=== PATIENT | male | born 1935 | race Caucasian/White ===

== ENCOUNTER 2017-07-31 10:28 | Observation (INO) | payer OTHER ==
--- NOTE | 2017-07-31 10:40 | PDOC ---
Attending Attestation - HPI HPI: 07/31/17 12:32 The patient is a 82 year old male with a significant PMH of CAD with atrial pacemaker, [place], cardiac stents, CABG, pacemaker, HTN, hyperlipidemia, LV diastolic dysfunction, , pulmonary HTN, hypothyroidism, BPH and osteosarcoma who presents to the emergency department with palpitations that began approximately 9AM this morning after coming back from the gym. The patient denies chest pain, shortness of breath, headache and dizziness. Denies fever, chills, nausea, vomit, diarrhea and constipation. Allergies: NKA Past surgical history: Cardiac stents Social history: No reported alcohol, drug, or cigarette use. PCP: Dr. Haskins - Physicial Exam PE: 07/31/17 12:44 Vitals: Triage Vital signs reviewed General Appearance: no acute distress, well nourished well developed, Head: Atraumatic, normocephalic Eyes: (+) Left droopy eyelid. Extraocular movement intact Neck: Supple;No Nuchal rigidity Chest Wall: Nontender Cardiac: Regular rate and rhythm, no murmurs, no rubs, no gallops, Lungs: Clear to auscultation bilateral, good air movement bilaterally, Abdomen: Soft, nondistended, normal bowel sounds, nontender to palpation Rectal: Exam deferred Extremities: Full range of motion to all extremities, no cyanosis, clubbing, or edema Skin: Warm and dry, no rashes or lesions, no petechiae Neuro: (+) Slurred speech. Cranial Nerves 2-12 grossly intact. Psych: normal mood, normal affect <Estee Avelar - Last Filed: 07/31/17 13:32> - Resident Resident Name: Edison Alva - ED Attending Attestation I have performed the following: I have examined & evaluated the patient, The case was reviewed & discussed with the resident, I agree w/resident's findings & plan, Exceptions are as noted - Medical Decision Making 07/31/17 18:44 Patient with new onset A. fib at episode of hoarse voice and brief altered mental status and NIHSS stroke scale 1. Code Long initially activated below suspicion for TIA seen by neurology not TPA candidate low suspicion for TIA most likely toxic metabolic as inciting event. Given palpitations and new-onset A. fib patient admitted to hospital cardiology consult it troponin sent no ischemic changes on EKG first troponin negative <Madie,Deangelo - Last Filed: 07/31/17 18:46> NIH Stroke Scale - Last Known Well Date/Time & Onset Date Last Known Well: 07/31/17 Time Last Known Well: 08:30 - Initial Evaluation Level of consciousness: Alert Ask patient the month and their age: Answers both correctly Ask patient to open & close eyes; make fist and let go: Obeys both correctly Best gaze (horizontal eye movement): Normal Visual field testing: No visual field loss Facial paresis (Show teeth/raise eyebrows/close eyes tight): Minor paralysis ( flattened nasolabial fold, asymmetry on smiling) Motor Function: Left Arm: Normal (1) Motor Function: Right Arm: Normal (extends arm 90 (or 45) degrees for 10 seconds without drift Motor Function: Left Leg: Normal (extends leg 30 degrees for 5 seconds without drift) Motor Function: Right Leg: Normal (extends leg 30 degrees for 5 seconds without drift) Limb Ataxia: No ataxia Sensory(Use pinprick test arms,legs,trunk,face/side to side): Normal Best language (Describe picture, name items, read sentences): No Aphasia Dysarthria (read several words): Normal articulation Extinction and Inattention: No abnormality - Total Score NIH Stroke Scale Score: 1 <Deangelo Ramachandran - Last Filed: 07/31/17 18:46>
[2017-07-31 10:59] VITALS: BMI 23.1
--- NOTE | 2017-07-31 11:20 | PDOC ---
History of Present Illness - General Chief Complaint: Palpitations Stated Complaint: RAPID HEARTBEAT Time Seen by Provider: 07/31/17 10:40 History Source: Patient, Spouse Exam Limitations: No Limitations - History of Present Illness Initial Comments: 07/31/17 11:18 82yo with pmh CAD with atrial pacemaker, [place], cardiac stents, CABG, pacemaker, HTN, hyperlipidemia, LV diastolic dysfunction, , pulmonary HTN, hypothyroidism , BPH and osteosarcoma, who came to the ER today complaining of palpitation 3h ago after coming back from the gym today. states that he was acting weird, didn't off his coat and was just staring at her without responding, he thinks he fell asleep She now complains that his voice is raspier and that his eyes aren't completely open. 07/31/17 11:43 Past History - Past Medical History Allergies/Adverse Reactions: Allergies Allergy/AdvReac Type Severity Reaction Status Date / Time Penicillins Allergy Verified 10/31/15 10:07 Home Medications: Ambulatory Orders Aspirin [ASA -] 81 mg PO DAILY 10/31/15 Candesartan Cilexetil [Atacand -] 4 mg PO DAILY 10/31/15 Clopidogrel Bisulfate [Clopidogrel] 75 mg PO DAILY 10/31/15 Folic Acid 1 mg PO DAILY 10/31/15 Metoprolol Succinate [Toprol XL -] 25 mg PO DAILY 10/31/15 Omeprazole 20 mg PO DAILY 10/31/15 Simvastatin 40 mg PO HS 10/31/15 Tamsulosin HCl 0.4 mg PO HS 10/31/15 Thyroid,Pork [[place] Thyroid] 90 mg PO DAILY 10/31/15 Travoprost [Travatan Z] 1 drop IO DAILY 10/31/15 Cancer: Yes (sarcoma) Cardiac Disorders: Yes (PACEMAKER/sudden cardiac arrest/7 stents) COPD: No Diabetes: Yes - Surgical History Cardiac Surgery: Yes (quadruple bypass 1999) - Immunization History Immunization Up to Date: Yes - Suicide/Smoking/Psychosocial Hx Smoking Status: No Smoking History: Never smoked Have you smoked in the past 12 months: Yes Number of Cigarettes Smoked Daily: 0 Information on smoking cessation initiated: No Hx Alcohol Use: No Drug/Substance Use Hx: No Substance Use Type: None Hx Substance Use Treatment: No Review of Systems - Review of Systems Able to Perform ROS?: Yes Is the patient limited Romanian proficient: No Constitutional: No: Symptoms Reported HEENTM: No: Symptoms Reported Respiratory: No: Symptoms reported Cardiac (ROS): Yes: Syncope : No: Symptoms Reported Musculoskeletal: No: Symptoms Reported Integumentary: No: Symptoms Reported Neurological: Yes: Unsteady Gait. No: Headache, Seizure Endocrine: No: Symptoms Reported *Physical Exam - Vital Signs Last Vital Signs Temp Pulse Resp BP Pulse Ox 97.6 F 92 H 20 97/53 96 07/31/17 17:00 07/31/17 17:00 07/31/17 17:00 07/31/17 17:00 07/31/17 15:38 - Physical Exam General Appearance: Yes: Nourished, Appropriately Dressed. No: Apparent Distress HEENT: positive: EOMI, ALAN, Other (mild left ptosis). negative: Normal Voice ( raspy) Neck: positive: Trachea midline. negative: Tender Respiratory/Chest: positive: Lungs Clear, Normal Breath Sounds. negative: Chest Tender Cardiovascular: positive: Regular Rhythm, Regular Rate, S1, S2 Gastrointestinal/Abdominal: positive: Normal Bowel Sounds, Soft ED Treatment Course - LABORATORY CBC & Chemistry Diagram: 07/31/17 11:14 07/31/17 10:59 - ADDITIONAL ORDERS Additional order review: Laboratory Results 07/31/17 07/31/17 07/31/17 11:14 10:59 10:59 PT with INR INR PTT (Actin FS) Sodium 139 Potassium 5.2 H D Chloride 110 H Carbon Dioxide 19 L D Anion Gap 10 BUN 33 H D Creatinine 1.4 H D Creat Clearance w eGFR 48.40 Random Glucose 120 H Calcium 8.8 Total Bilirubin 0.5 AST 29 D ALT 14 D Alkaline Phosphatase 67 Troponin I < 0.02 B-Natriuretic Peptide 496.96 H Total Protein 7.4 Albumin 3.6 Blood Type O POSITIVE Antibody Screen Negative 07/31/17 10:59 PT with INR 12.40 H INR 1.10 PTT (Actin FS) 28.4 Sodium Potassium Chloride Carbon Dioxide Anion Gap BUN Creatinine Creat Clearance w eGFR Random Glucose Calcium Total Bilirubin AST ALT Alkaline Phosphatase Troponin I B-Natriuretic Peptide Total Protein Albumin Blood Type Antibody Screen 07/31/17 11:14 RBC 4.35 MCV 92.6 MCHC 32.5 RDW 14.3 MPV 9.4 D Neutrophils % 60.6 Lymphocytes % 27.3 Monocytes % 8.1 Eosinophils % 3.6 Basophils % 0.4 - RADIOLOGY Radiology Studies Ordered: Category Date Time Status HEAD CT WITHOUT CONTRAST [CT] Stat CT Scan 07/31/17 11:20 Completed Medical Decision Making - Medical Decision Making 07/31/17 12:03 82M -year-old man with a history of CAD with atrial pacemaker on clopidogrel, [place] , cardiac stents, CABG, pacemaker, HTN, hyperlipidemia, LV diastolic dysfunction , , pulmonary HTN, hypothyroidism, BPH and osteosarcoma, who came to the ER today complaining of palpitation for the past 3 hours and ams as per . EKG: Atrial-Paced rhythm with prolonged AV conduction in a pattern of bigeminy. Low voltage QRS Incomplete right bundle branch block. Cannot rule out inferior/anterior infarct. Code Maradi[place] activated, CT head pending 07/31/17 13:[address] Cristina lei for [facility] to admit patient to telemetry will microblog hospitalist 07/31/17 13:57 [facility] accepted the patient to tele obs for for Dr. Paredes *DC/Admit/Observation/Transfer Diagnosis at time of Disposition: Bigeminal rhythm, Palpitations - Discharge Dispostion Admit: Yes - Referrals - Patient Instructions - Post Discharge Activity
[2017-07-31 11:37] LABS: BASOPHIL 0.4 % (0-2.0); EOSINOPHIL 3.6 % (0-4.5); MCH 30.1 pg (25.7-33.7); MCHC 32.5 g/dl (32.0-35.9); MEAN CELL VOLUME 92.6 fl (80-96); MEAN PLT VOLUME 9.4 fl (7.5-11.1); NEUTROPHILS 60.6 % (42.8-82.8); PLATELET COUNT 247 K/MM3 (134-434); RDW 14.3 % (11.9-15.9); WHITE BLOOD COUNT 8.5 K/mm3 (4.0-10.0)
[2017-07-31 12:04] LABS: INR 1.1 (0.82-1.09); PROTHROMBIN TIME (PATIENT) 12.4 SEC (9.98-11.88)
[2017-07-31 12:07] LABS: ACTIVATED PTT 28.4 SECONDS (26.9-34.4)
--- NOTE | 2017-07-31 12:19 | CON.NEURO ---
Consult Consult Specialty:: Neurology Referred by:: Dr. Ramachandran Reason for Consultation:: Possible Stroke - History of Present Illness Chief Complaint: As per , he doesn't seem right History of Present Illness: 82yo with pmh CAD with atrial pacemaker, [place], cardiac stents, CABG, pacemaker, HTN, hyperlipidemia, LV diastolic dysfunction, , pulmonary HTN, hypothyroidism , BPH and osteosarcoma, who came to the ER today complaining of palpitation 3h ago after coming back from the gym today. states that he was acting weird, didn't off his coat and was just staring at her without responding. He felt extremely tired, was aware that his voice was sounding a bit hoarse and "not strong", but felt that it was coming back stronger by the time I saw him. His agrees. His also felt that his left eye didn't open as much as the right. 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 - Past Surgical History Past Surgical History: Yes: CABG, Permanent Pacemaker - Alcohol/Substance Use Hx Alcohol Use: No History of Substance Use: reports: None - Smoking History Smoking history: Never smoked Have you smoked in the past 12 months: Yes Aproximately how many cigarettes per day: 0 - Social History Usual Living Arrangement: With Spouse ADL: Independent History of Recent Travel: No Home Medications - Allergies Allergies/Adverse Reactions: Allergies Allergy/AdvReac Type Severity Reaction Status Date / Time Penicillins Allergy Verified 10/31/15 10:07 - Home Medications Home Medications: Ambulatory Orders Aspirin [ASA -] 81 mg PO DAILY 10/31/15 Candesartan Cilexetil [Atacand -] 4 mg PO DAILY 10/31/15 Clopidogrel Bisulfate [Clopidogrel] 75 mg PO DAILY 10/31/15 Folic Acid 1 mg PO DAILY 10/31/15 Metoprolol Succinate [Toprol XL -] 25 mg PO DAILY 10/31/15 Omeprazole 20 mg PO DAILY 10/31/15 Simvastatin 40 mg PO HS 10/31/15 Tamsulosin HCl 0.4 mg PO HS 10/31/15 Thyroid,Pork [[place] Thyroid] 90 mg PO DAILY 10/31/15 Travoprost [Travatan Z] 1 drop IO DAILY 10/31/15 Review of Systems - Review of Systems Constitutional: reports: Lethargy (this morning, now improving) Physical Exam-Neuro Vital Signs: Vital Signs Temperature 98.0 F 07/31/17 10:55 Pulse Rate 76 07/31/17 12:08 Respiratory Rate 18 07/31/17 12:08 Blood Pressure 112/86 07/31/17 12:08 O2 Sat by Pulse Oximetry (%) 96 07/31/17 12:08 Constitutional: Yes: Well Nourished, No Distress, Calm Labs: CBC, BMP 07/31/17 11:14 INR, PTT INR 1.10 (0.82-1.09) 07/31/17 10:59 - Neuro Exam Level Of Consciousness: Yes: Alert, Oriented to Person, Oriented to Place, Oriented to Time Eyes: Yes: Other (poor vision from right eye. Pupil unresponsive to light, but responsive on left. He has a right esophoria, no diplopia) Speech: Other (his speech sounds fine to me, but he and his says that its not quite his normal speech, a little hoarse and weak but improved over an hour ago) Cranial Nerves II-XII Intact: Yes DTR's: 0 Left Achilles, 0 Right Achilles, 1+ Left Bicep, 1+ Right Bicep, 1+ Left Tricep, 1+ Right Tricep, 1+ Left Brachioradialis, 1+ Right Brachioradialis Babinski: Absent Response to light touch: Normal (no extinction to double simultaneous stimulation) Coordination: Normal: Finger to Nose, Heel to Brooks Motor Strength: 5/5: Left Arm, Right Arm, Left Leg, Right Leg Gait: Deferred NIH Stroke Scale - Last Known Well Date/Time & Onset Date Last Known Well: 07/31/17 Time Last Known Well: 08:00 - Initial Evaluation Level of consciousness: Alert Ask patient the month and their age: Answers both correctly Ask patient to open & close eyes; make fist and let go: Obeys both correctly Best gaze (horizontal eye movement): Normal Visual field testing: No visual field loss Facial paresis (Show teeth/raise eyebrows/close eyes tight): Normal symmetrical movement Motor Function: Left Arm: Normal Motor Function: Right Arm: Normal (extends arm 90 (or 45) degrees for 10 seconds without drift Motor Function: Left Leg: Normal (extends leg 30 degrees for 5 seconds without drift) Motor Function: Right Leg: Normal (extends leg 30 degrees for 5 seconds without drift) Limb Ataxia: No ataxia Sensory(Use pinprick test arms,legs,trunk,face/side to side): Normal Best language (Describe picture, name items, read sentences): No Aphasia Dysarthria (read several words): Normal articulation Extinction and Inattention: No abnormality - Total Score NIH Stroke Scale Score: 0 Imaging - Results Cat Scan: Report Reviewed, Image Reviewed (atrophy, no acute stroke, to my eyes some white matter ischemic changes) Problem List - Problems (1) Encephalopathy acute Code(s): G93.40 - ENCEPHALOPATHY, UNSPECIFIED (2) AV block, complete Code(s): I44.2 - ATRIOVENTRICULAR BLOCK, COMPLETE (3) Aortic stenosis Code(s): I35.0 - NONRHEUMATIC AORTIC (VALVE) STENOSIS Qualifiers: Cardiac valve disease etiology: nonrheumatic Qualified Code(s): I35.0 - Nonrheumatic aortic (valve) stenosis (4) BPH (benign prostatic hypertrophy) Code(s): N40.0 - BENIGN PROSTATIC HYPERPLASIA WITHOUT LOWER URINRY TRACT SYMP Qualifiers: Lower urinary tract symptom presence: symptoms absent Qualified Code(s): N40.0 - Benign prostatic hyperplasia without lower urinary tract symptoms (5) CAD (coronary artery disease) Code(s): I25.10 - ATHSCL HEART DISEASE OF [place] CORONARY ARTERY W/O ANG PCTRS Qualifiers: Coronary Disease-Associated Artery/Lesion type: [place] artery [place] vs. transplanted heart: [place] heart Associated angina: without angina Qualified Code(s): I25.10 - Atherosclerotic heart disease of [place] coronary artery without angina pectoris (6) Diastolic dysfunction without heart failure Code(s): I51.9 - HEART DISEASE, UNSPECIFIED (7) History of cardiac pacemaker Code(s): Z95.0 - PRESENCE OF CARDIAC PACEMAKER Assessment/Plan I don't see this as a clear TIA, though its possible. The story strikes me more of global dysfunction, possibly cardiac in origin. The history of palpitations, and severe fatigue, and the lack of focal complaints I think points more to this. Based on his low score on NIHSS, lack of suspicion of ACRYLIC FABRICATOR etiology, and rapid improvement, I wouldn't consider TPA for neurologic reasons. Recommend exploring cardiac status. Please reconsult me if further questions arise. Thanks.
[2017-07-31 12:40] LABS: ALBUMIN 3.6 g/dl (3.4-5.0); ANION GAP 10 (8-16); BILIRUBIN,TOTAL 0.5 mg/dL (0.2-1.0); CALCIUM 8.8 mg/dL (8.5-10.1); CO2 19 mmol/L (21-32); CREATININE 1.4 mg/dL (0.7-1.3); GLUCOSE,RANDOM 120 mg/dL (74-106); SGPT/ALT 14 U/L (12-78); TOT PROT 7.4 g/dl (6.4-8.2)
[2017-07-31 12:42] LABS: ALK PHOS 67 U/L (45-117); TROPONIN I < 0.02 ng/ml (0.00-0.05)
[2017-07-31 12:47] LABS: SGOT/AST 29 U/L (15-37)
--- NOTE | 2017-07-31 17:58 | HP ---
CHIEF COMPLAINT: PCP: Jozef ([facility]) Cards: [facility] HISTORY OF PRESENT ILLNESS: This is a 82yo man with pmh CAD, [place], CABGx2, HTN, HLD, "thigh" sarcoma, glaucoma who presents with an episode of slurred speech and "acting strange." The patient states he came home from the gym walked into the house and sat down on the couch. Then he remembers his talking to him but he was not able to answer clearly. The states she was concerned that the patient was still fully dressed in his sweatshirt, coat and winter hat in a warm house. She noticed that he had left eye ptosis and had slurred speech. She states his voice was "hoarse" at that time. The patient has full recollection of events. He denies dizziness, chest pain, shortness of breath, loss of consciousness, fevers, chills, nausea, vomiting, abdominal pain. ER course was notable for: (1) Negative CTH (2) troponin (-) Recent Travel: denies PAST MEDICAL HISTORY: see HPI PAST SURGICAL HISTORY: see HPI Social History: Smoking: denies Alcohol: denies Drugs: denies Family History: Allergies Penicillins Allergy (Verified 10/31/15 10:07) HOME MEDICATIONS: Home Medications Medication Instructions Recorded Aspirin [ASA -] 81 mg PO DAILY 10/31/15 Candesartan Cilexetil [Atacand -] 4 mg PO DAILY 10/31/15 Clopidogrel Bisulfate [Clopidogrel] 75 mg PO DAILY 10/31/15 Folic Acid 1 mg PO DAILY 10/31/15 Metoprolol Succinate [Toprol XL -] 25 mg PO DAILY 10/31/15 Omeprazole 20 mg PO DAILY 10/31/15 Simvastatin 40 mg PO HS 10/31/15 Tamsulosin HCl 0.4 mg PO HS 10/31/15 Thyroid,Pork [[place] Thyroid] 90 mg PO DAILY 10/31/15 Travoprost [Travatan Z] 1 drop IO DAILY 10/31/15 REVIEW OF SYSTEMS CONSTITUTIONAL: Absent: fever, chills, diaphoresis, generalized weakness, malaise, loss of appetite, weight change HEENT: Absent: rhinorrhea, nasal congestion, throat pain, throat swelling, difficulty swallowing, mouth swelling, ear pain, eye pain, visual changes CARDIOVASCULAR: Present- palpitations, irregular heart rate, lightheadedness Absent: chest pain, syncope, peripheral edema RESPIRATORY: Absent: cough, shortness of breath, dyspnea with exertion, orthopnea, wheezing, stridor, hemoptysis GASTROINTESTINAL: Absent: abdominal pain, abdominal distension, nausea, vomiting, diarrhea, constipation, melena, hematochezia GENITOURINARY: Absent: dysuria, frequency, urgency, hesitancy, hematuria, flank pain, genital pain MUSCULOSKELETAL: Absent: myalgia, arthralgia, joint swelling, back pain, neck pain SKIN: Absent: rash, itching, pallor HEMATOLOGIC/IMMUNOLOGIC: Absent: easy bleeding, easy bruising, lymphadenopathy, frequent infections ENDOCRINE: Absent: unexplained weight gain, unexplained weight loss, heat intolerance, cold intolerance NEUROLOGIC: Absent: headache, focal weakness or paresthesias, dizziness, unsteady gait, seizure, mental status changes, bladder or bowel incontinence PSYCHIATRIC: Absent: anxiety, depression, suicidal or homicidal ideation, hallucinations. PHYSICAL EXAMINATION Vital Signs - 24 hr 07/31/17 07/31/17 07/31/17 10:55 12:08 14:05 Temperature 98.0 F 98.2 F Pulse Rate 80 76 Pulse Rate [ 76 Apical] Respiratory 18 18 18 Rate Blood Pressure 124/74 127/66 Blood Pressure 112/86 [Right Arm] O2 Sat by Pulse 100 96 96 Oximetry (%) 07/31/17 15:38 Temperature Pulse Rate Pulse Rate [ 76 Apical] Respiratory 18 Rate Blood Pressure Blood Pressure 96/63 [Right Arm] O2 Sat by Pulse 96 Oximetry (%) GENERAL: Awake, alert, and fully oriented, in no acute distress. HEAD: Normal with no signs of trauma. EYES: Pupils equal, round and reactive to light, extraocular movements intact, sclera anicteric, conjunctiva clear. Left lid lag. EARS, NOSE, THROAT: Ears normal, nares patent, oropharynx clear without exudates. Moist mucous membranes. NECK: Normal range of motion, supple without lymphadenopathy, JVD, or masses. LUNGS: Breath sounds equal, clear to auscultation bilaterally. No wheezes, and no crackles. No accessory muscle use. HEART: Irregular rate and rhythm, normal S1 and S2 without murmur, rub or gallop. ABDOMEN: Soft, nontender, not distended, normoactive bowel sounds, no guarding, no rebound, no masses. No hepatomegaly or splenomegaly. MUSCULOSKELETAL: Normal range of motion at all joints. No bony deformities or tenderness. No CVA tenderness. UPPER EXTREMITIES: 2+ pulses, warm, well-perfused. No cyanosis. No clubbing. No peripheral edema. LOWER EXTREMITIES: 2+ pulses, warm, well-perfused. No calf tenderness. No peripheral edema. NEUROLOGICAL: Cranial nerves II-XII intact. Normal speech. Normal gait. PSYCHIATRIC: Cooperative. Good eye contact. Appropriate mood and affect. SKIN: Warm, dry, normal turgor, no rashes or lesions noted, normal capillary refill. Midline chest scar. Laboratory Results - last 24 hr 07/31/17 07/31/17 07/31/17 10:59 10:59 10:59 WBC RBC Hgb Hct MCV MCH MCHC RDW Plt Count MPV Neutrophils % Lymphocytes % Monocytes % Eosinophils % Basophils % PT with INR 12.40 H INR 1.10 PTT (Actin FS) 28.4 Sodium 139 Potassium 5.2 H D Chloride 110 H Carbon Dioxide 19 L D Anion Gap 10 BUN 33 H D Creatinine 1.4 H D Creat Clearance w eGFR 48.40 Random Glucose 120 H Calcium 8.8 Total Bilirubin 0.5 AST 29 D ALT 14 D Alkaline Phosphatase 67 Troponin I < 0.02 B-Natriuretic Peptide Total Protein 7.4 Albumin 3.6 Blood Type O POSITIVE Antibody Screen Negative 07/31/17 07/31/17 11:14 11:14 WBC 8.5 RBC 4.35 Hgb 13.1 Hct 40.2 MCV 92.6 MCH 30.1 MCHC 32.5 RDW 14.3 Plt Count 247 MPV 9.4 D Neutrophils % 60.6 Lymphocytes % 27.3 Monocytes % 8.1 Eosinophils % 3.6 Basophils % 0.4 PT with INR INR PTT (Actin FS) Sodium Potassium Chloride Carbon Dioxide Anion Gap BUN Creatinine Creat Clearance w eGFR Random Glucose Calcium Total Bilirubin AST ALT Alkaline Phosphatase Troponin I B-Natriuretic Peptide 496.96 H Total Protein Albumin Blood Type Antibody Screen ASSESSMENT/PLAN: A: 82yo man with PMHx CAD, [place], CABGx2, HTN, HLD, "thigh" sarcoma, glaucoma with palpitations and hoarseness. P: palpitations - telemery - troponins x3 - carotid dopplers - unsure of last echo- will defer to cards - Toprol - Cards consult- Cristina PPM - intermittent capture noted on cardiac monitoring - cards consult pending HTN - Toprol - Atacand JANET - NS@75cc/hr - trend BUN/Cr F/E/N - Low Na diet - NS@75cc/hr PPX - sqh - OOB Dispo- Requires observation of acute medical conditions. Visit type - Emergency Visit Emergency Visit: Yes ED Registration Date: 07/31/17 Care time: The patient presented to the Emergency Department on the above date and was hospitalized for further evaluation of their emergent condition. - New Patient This patient is new to me today: Yes Date on this admission: 08/01/17 - Critical Care Critical Care patient: No
[2017-07-31] MEDS: HEPARIN NA (PORCINE) 5,000 UNITS/ML 1ML VIAL SQ SCH ×2 (18:50→22:40)
[2017-07-31 20:05] LABS: CPK 72 IU/L (39-308); TROPONIN I < 0.02 ng/ml (0.00-0.05)
[2017-07-31] MEDS: TAMSULOSIN HCL 0.4 MG CAP.ER.24H (FP) PO SCH (22:39)
[2017-07-31] MEDS: ATORVASTATIN CA 20 MG TABLET (FP) PO SCH (22:39)
[2017-08-01] MEDS: THYROID PO SCH (06:00)
[2017-08-01 07:16] LABS: MCH 30.4 pg (25.7-33.7); MEAN CELL VOLUME 92.1 fl (80-96); MEAN PLT VOLUME 8.8 fl (7.5-11.1); PLATELET COUNT 211 K/MM3 (134-434); RDW 14.5 % (11.9-15.9); WHITE BLOOD COUNT 6.7 K/mm3 (4.0-10.0)
[2017-08-01 08:02] LABS: ALBUMIN 3.6 g/dl (3.4-5.0); ALK PHOS 59 U/L (45-117); ANION GAP 7 (8-16); BILIRUBIN,TOTAL 0.9 mg/dL (0.2-1.0); CALCIUM 8.7 mg/dL (8.5-10.1); CO2 25 mmol/L (21-32); CREATININE 1.3 mg/dL (0.7-1.3); GLUCOSE,RANDOM 123 mg/dL (74-106); MAGNESIUM 2.3 mg/dL (1.8-2.4); PHOSPHOROUS 3.3 mg/dL (2.5-4.9); SGOT/AST 10 U/L (15-37); SGPT/ALT 12 U/L (12-78); TOT PROT 6.9 g/dl (6.4-8.2)
[2017-08-01] MEDS: HEPARIN NA (PORCINE) 5,000 UNITS/ML 1ML VIAL SQ SCH ×3 (08:22→21:28)
[2017-08-01 09:20] LABS: CPK 56 IU/L (39-308)
[2017-08-01 09:21] LABS: TROPONIN I < 0.02 ng/ml (0.00-0.05)
[2017-08-01] MEDS ORDERED: THYROID PORK 90 MG PO SCH (10:00)
[2017-08-01] MEDS: PANTOPRAZOLE 20 MG TABLET (FP) PO SCH (10:22)
[2017-08-01] MEDS: METOPROLOL SUCCINATE 25 MG TAB.SR.24H (FP) PO SCH (10:22)
[2017-08-01] MEDS: ASPIRIN 81 MG CHEWABLE TABLETS PO SCH (10:22)
[2017-08-01] MEDS: FOLIC ACID 1 MG TABLET (FP) PO SCH (10:22)
--- NOTE | 2017-08-01 10:22 | CON.CARD ---
Consult Consult Specialty:: Cardiology Referred by:: Hospitalist Reason for Consultation:: Cardiac evaluation - History of Present Illness Chief Complaint: Slurred speech and odd behavior. ECG abnormality with atrial pacing History of Present Illness: Patient is an 82 year old male well known to our service (sees Dr. Hanna Monson) with underlying history of coronary artery disease, s/p CABG, reop, systolic/diastolic LV dysfunction with chronic 0-1 NYHA classification LV failure, aortic valve stenosis, AV block post PPM ([employer]) hypertension, hypercholesterolemia, history of sarcoma (right inguinal) post resection and anemia. He presents with episode of slurred speech and acting strange according to his . He is awake and alert at this time. He denies chest pain, shortness of breath or palpitations. He denies paroxysmal nocturnal dyspnea or orthopnea. He denies fever or chills. He denies headache or lightheadedness. He denies nausea, vomiting, diarrhea or abdominal pain. 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 - Past Surgical History Past Surgical History: Yes: CABG, Permanent Pacemaker Additional Surgical History: Post resection of right inguinal lipo-sarcoma - Alcohol/Substance Use Hx Alcohol Use: No History of Substance Use: reports: None - Smoking History Smoking history: Never smoked Have you smoked in the past 12 months: Yes Aproximately how many cigarettes per day: 0 - Social History Usual Living Arrangement: With Spouse ADL: Independent History of Recent Travel: No Home Medications - Allergies Allergies/Adverse Reactions: Allergies Allergy/AdvReac Type Severity Reaction Status Date / Time Penicillins Allergy Verified 10/31/15 10:07 - Home Medications Home Medications: Ambulatory Orders Aspirin [ASA -] 81 mg PO DAILY 10/31/15 Candesartan Cilexetil [Atacand -] 4 mg PO DAILY 10/31/15 Clopidogrel Bisulfate [Clopidogrel] 75 mg PO DAILY 10/31/15 Folic Acid 1 mg PO DAILY 10/31/15 Metoprolol Succinate [Toprol XL -] 25 mg PO DAILY 10/31/15 Omeprazole 20 mg PO DAILY 10/31/15 Simvastatin 40 mg PO HS 10/31/15 Tamsulosin HCl 0.4 mg PO HS 10/31/15 Thyroid,Pork [[place] Thyroid] 90 mg PO DAILY 10/31/15 Travoprost [Travatan Z] 1 drop IO DAILY 10/31/15 Review of Systems - Review of Systems Constitutional: denies: Chills, Fever Cardiovascular: denies: Chest Pain, Palpitations, Shortness of Breath Respiratory: denies: Cough, Hemoptysis, Orthopnea Gastrointestinal: denies: Constipation, Diarrhea, Melena, Nausea, Rectal Bleeding, Vomiting Neurological: denies: Dizziness, Headache, Seizure, Syncope Vital Signs: Vital Signs Temperature 98.2 F 08/01/17 05:00 Pulse Rate 88 08/01/17 05:00 Respiratory Rate 20 08/01/17 05:00 Blood Pressure 123/70 08/01/17 05:00 O2 Sat by Pulse Oximetry (%) 97 07/31/17 21:00 Neck: Yes: Supple Respiratory: Yes: CTA Bilaterally Gastrointestinal: Yes: Normal Bowel Sounds, Soft. No: Tenderness Cardiovascular: Yes: Regular Rate and Rhythm JVD: No Carotid Bruit: No PMI: Non-Displaced Heart Sounds: Yes: S1, S2. No: Gallop Murmur: Yes: Systolic Murmur, Grade 2 Edema: No - Other Data Labs, Other Data: CBC, BMP 08/01/17 05:42 INR, PTT INR 1.10 (0.82-1.09) 07/31/17 10:59 Troponin, BNP 07/31/17 07/31/17 07/31/17 10:59 11:14 18:00 Troponin I < 0.02 < 0.02 B-Natriuretic Peptide 496.96 H Atrial paced with premature atrial complexes, right sided conduction delay Problem List - Problems (1) History of permanent cardiac pacemaker placement Code(s): Z95.0 - PRESENCE OF CARDIAC PACEMAKER (2) Thoracic ascending aortic aneurysm Code(s): I71.2 - THORACIC AORTIC ANEURYSM, WITHOUT RUPTURE (3) Bigeminal rhythm Code(s): I49.9 - CARDIAC ARRHYTHMIA, UNSPECIFIED (4) Palpitations Code(s): R00.2 - PALPITATIONS (5) AV block, complete Code(s): I44.2 - ATRIOVENTRICULAR BLOCK, COMPLETE (6) Aortic stenosis Code(s): I35.0 - NONRHEUMATIC AORTIC (VALVE) STENOSIS Qualifiers: Cardiac valve disease etiology: nonrheumatic Qualified Code(s): I35.0 - Nonrheumatic aortic (valve) stenosis (7) CAD (coronary artery disease) Code(s): I25.10 - ATHSCL HEART DISEASE OF [place] CORONARY ARTERY W/O ANG PCTRS Qualifiers: Coronary Disease-Associated Artery/Lesion type: [place] artery [place] vs. transplanted heart: [place] heart Associated angina: without angina Qualified Code(s): I25.10 - Atherosclerotic heart disease of [place] coronary artery without angina pectoris (8) Diastolic dysfunction without heart failure Code(s): I51.9 - HEART DISEASE, UNSPECIFIED (9) Hx of CABG Code(s): Z95.1 - PRESENCE OF AORTOCORONARY BYPASS GRAFT (10) Hyperlipidemia Code(s): E78.5 - HYPERLIPIDEMIA, UNSPECIFIED Qualifiers: Hyperlipidemia type: pure hypercholesterolemia Qualified Code(s): E78.00 - Pure hypercholesterolemia, unspecified; E78.0 - Pure hypercholesterolemia (11) Hypertension Code(s): I10 - ESSENTIAL (PRIMARY) HYPERTENSION Qualifiers: Hypertension type: essential hypertension Qualified Code(s): I10 - Essential (primary) hypertension (12) Hypothyroidism Code(s): E03.9 - HYPOTHYROIDISM, UNSPECIFIED Qualifiers: Hypothyroidism type: unspecified Qualified Code(s): E03.9 - Hypothyroidism , unspecified (13) Pulmonary hypertension Code(s): I27.2 - OTHER SECONDARY PULMONARY HYPERTENSION * DO NOT USE * Assessment/Plan 1. Transient altered mental status, etiology unclear 2. CAD s/p CABG (reop), angina pectoris 3. Systolic/diastolic LV dysfunction class 0-1 NYHA classification LV failure, currently euvolemic/compensated 4. Aortic valve stenosis 5. HTN/HCVD 6. Hypercholesterolemia 7. AV block post PPM 8. Tricuspid valve regurgitation and pulmonary HTN 9. Carotid stenosis 10. Thoracic aortic aneurysm (ascending 4.0 cm) 11. CKD 12. History of right inguinal lipo-sarcoma post resection 13. Anemia PLAN: 1. Patient states that PPM was interrogated in the office recently and was functioning appropriately. No need to re-interrogate at this time 2. Continue Toprol XL and Diovan as tolerated 3. Continue Lipitor 4. Continue ASA and Plavix 5. Neuro input noted 6. Carotid Doppler ordered Further plans are to follow Celestino Evans MD
[2017-08-01] MEDS: VALSARTAN 40 MG TABLET (FP) PO SCH (10:23)
[2017-08-01] MEDS: CLOPIDOGREL BISULFATE 75 MG TABLET (FP) PO SCH (10:23)
--- NOTE | 2017-08-01 18:17 | PN ---
Progress Note (short form) - Note Progress Note: Subjective: The patient was seen and examined at the bedside, he has no complaints at this time. Per the , the patient is back to his baseline mental status Current Medications Generic Name Dose Route Start Last Admin Trade Name Shannon PRN Reason Stop Dose Admin Aspirin 81 mg 08/01/17 10:00 08/01/17 10:22 Asa - PO 81 mg DAILY WAYNE Administration Atorvastatin Calcium 20 mg 07/31/17 22:00 07/31/17 22:39 Lipitor - PO 20 mg HS WAYNE Administration Clopidogrel Bisulfate 75 mg 08/01/17 10:00 08/01/17 10:23 Plavix - PO 75 mg DAILY WAYNE Administration Folic Acid 1 mg 08/01/17 10:00 08/01/17 10:22 Folic Acid - PO 1 mg DAILY WAYNE Administration Heparin Sodium (Porcine) 5,000 unit 07/31/17 18:30 08/01/17 14:00 Heparin - SQ 5,000 unit TID WAYNE Administration Metoprolol Succinate 25 mg 08/01/17 10:00 08/01/17 10:22 Toprol Xl - PO 25 mg DAILY WAYNE Administration Pantoprazole Sodium 20 mg 08/01/17 10:00 08/01/17 10:22 Protonix - PO 20 mg DAILY WAYNE Administration Tamsulosin HCl 0.4 mg 07/31/17 22:00 07/31/17 22:39 Flomax - PO 0.4 mg HS WAYNE Administration Thyroid 60 mg/ Thyroid 30 mg 90 mg 08/01/17 07:00 08/01/17 06:00 PO 90 mg DAILY@0700 WAYNE Administration Valsartan 40 mg 08/01/17 10:00 08/01/17 10:23 Diovan - PO 40 mg DAILY WAYNE Administration Objective: Vital Signs Period Temp Pulse Resp BP Sys/Stewart Pulse Ox Last 24 Hr 96.8 F-98.2 F 74-92 18-20 100-123/54-70 97-98 Physical Exam: General: NAD, A&Ox3 Lungs: CTA bilaterally Heart: RRR, S1S2 Abd: Soft, non-tender, non-distended. Normoactive bowel sounds Ext: Warm, well-perfused. 2+ DP/Pt bilaterally Neuro: CN 2-12 intact CBCD WBC 6.7 K/mm3 (4.0-10.0) 08/01/17 05:42 RBC 4.36 M/mm3 (4.00-5.60) 08/01/17 05:42 Hgb 13.2 GM/dL (11.7-16.9) 08/01/17 05:42 Hct 40.1 % (35.4-49) 08/01/17 05:42 MCV 92.1 fl (80-96) 08/01/17 05:42 MCHC 33.0 g/dl (32.0-35.9) 08/01/17 05:42 RDW 14.5 % (11.9-15.9) 08/01/17 05:42 Plt Count 211 K/MM3 (134-434) 08/01/17 05:42 MPV 8.8 fl (7.5-11.1) 08/01/17 05:42 CMP Sodium 141 mmol/L (136-145) 08/01/17 05:42 Potassium 4.7 mmol/L (3.5-5.1) 08/01/17 05:42 Chloride 109 mmol/L (98-107) H 08/01/17 05:42 Carbon Dioxide 25 mmol/L (21-32) D 08/01/17 05:42 Anion Gap 7 (8-16) L 08/01/17 05:42 BUN 27 mg/dL (7-18) H 08/01/17 05:42 Creatinine 1.3 mg/dL (0.7-1.3) 08/01/17 05:42 Creat Clearance w eGFR 52.72 (>60) 08/01/17 05:42 Random Glucose 123 mg/dL (74-106) H 08/01/17 05:42 Calcium 8.7 mg/dL (8.5-10.1) 08/01/17 05:42 Total Bilirubin 0.9 mg/dL (0.2-1.0) D 08/01/17 05:42 AST 10 U/L (15-37) L D 08/01/17 05:42 ALT 12 U/L (12-78) 08/01/17 05:42 Alkaline Phosphatase 59 U/L (45-117) 08/01/17 05:42 Total Protein 6.9 g/dl (6.4-8.2) 08/01/17 05:42 Albumin 3.6 g/dl (3.4-5.0) 08/01/17 05:42 CARDIAC ENZYMES Creatine Kinase 56 IU/L (39-308) 08/01/17 05:42 Troponin I < 0.02 ng/ml (0.00-0.05) 08/01/17 05:42 Assessment: This is an 82 year old male with PMHx of CAD, [place], CABGx2, HTN, HLD, "thigh" sarcoma, glaucoma presented to the ED with palpitations after coming home from the gym Plan: 1) Palpitations and change in mental status - Symptoms resolved once he arrived in the ED - Evaluated by neurology after code joel was called: per neuro, no further neuro workup - Continue cardiac monitoring - Trop x3 negative - Mildly elevated BNP - Has PPM: f/u interrogation (discussed with RN) - F/u ECHO - F/u cardiology consult for further recommendations - Appreciate neurology consult 2) JANET - Resolved 3) CAD s/p [place], cardiac stents, CABG, Pacemaker - Continue ASA - Continue Plavix - Continue Lipitor - Continue Toprol XL - Continue Diovan 4) F/E/N: - Cardiac diet - Monitor electrolytes 5) Prophylaxis: - OOB ambulating - Heparin 5,000u sq tid 6) Dispo: - Once cardiac workup complete CODE STATUS: FULL CODE Visit type - Emergency Visit Emergency Visit: Yes ED Registration Date: 07/31/17 Care time: The patient presented to the Emergency Department on the above date and was hospitalized for further evaluation of their emergent condition. - New Patient This patient is new to me today: Yes Date on this admission: 08/01/17 - Critical Care Critical Care patient: No
[2017-08-01] MEDS: TAMSULOSIN HCL 0.4 MG CAP.ER.24H (FP) PO SCH (21:27)
[2017-08-01] MEDS: ATORVASTATIN CA 20 MG TABLET (FP) PO SCH (21:27)
[2017-08-02] MEDS ORDERED: SODIUM CHLORIDE 250 ML IV STA (05:57)
[2017-08-02] MEDS: HEPARIN NA (PORCINE) 5,000 UNITS/ML 1ML VIAL SQ SCH ×2 (06:09→14:47)
[2017-08-02] MEDS: THYROID PO SCH (06:09)
[2017-08-02] MEDS: VALSARTAN 40 MG TABLET (FP) PO SCH (09:44)
[2017-08-02] MEDS: ASPIRIN 81 MG CHEWABLE TABLETS PO SCH (09:44)
[2017-08-02] MEDS: FOLIC ACID 1 MG TABLET (FP) PO SCH (09:45)
[2017-08-02] MEDS: CLOPIDOGREL BISULFATE 75 MG TABLET (FP) PO SCH (09:45)
--- NOTE | 2017-08-02 09:46 | PN ---
Progress Note, Physician - Current Medication List Current Medications: Active Medications Aspirin (Asa -) 81 mg PO DAILY [facility] Last Admin: 08/01/17 10:22 Dose: 81 mg Atorvastatin Calcium (Lipitor -) 20 mg PO HS [facility] Last Admin: 08/01/17 21:27 Dose: 20 mg Clopidogrel Bisulfate (Plavix -) 75 mg PO DAILY [facility] Last Admin: 08/01/17 10:23 Dose: 75 mg Folic Acid (Folic Acid -) 1 mg PO DAILY [facility] Last Admin: 08/01/17 10:22 Dose: 1 mg Heparin Sodium (Porcine) (Heparin -) 5,000 unit SQ TID [facility] Last Admin: 08/02/17 06:09 Dose: 5,000 unit Metoprolol Succinate (Toprol Xl -) 25 mg PO DAILY [facility] Last Admin: 08/01/17 10:22 Dose: 25 mg Pantoprazole Sodium (Protonix -) 20 mg PO DAILY [facility] Last Admin: 08/01/17 10:22 Dose: 20 mg Tamsulosin HCl (Flomax -) 0.4 mg PO HS [facility] Last Admin: 08/01/17 21:27 Dose: 0.4 mg Thyroid 60 mg/ Thyroid 30 mg 90 mg PO DAILY@0700 [facility] Last Admin: 08/02/17 06:09 Dose: 90 mg Valsartan (Diovan -) 40 mg PO DAILY [facility] Last Admin: 08/01/17 10:23 Dose: 40 mg - Objective Vital Signs: Vital Signs Temperature 98.1 F 08/02/17 06:00 Pulse Rate 70 08/02/17 06:45 Respiratory Rate 18 08/02/17 06:45 Blood Pressure 83/53 08/02/17 06:45 O2 Sat by Pulse Oximetry (%) 98 08/02/17 01:00 Labs: CBC, BMP 08/01/17 05:42 08/01/17 09:06 INR, PTT INR 1.10 (0.82-1.09) 07/31/17 10:59 Assessment/Plan 1. Palpitations r/o sustained tachyarrhythmia 2. Altered mental status since resolved 3. CAD h/o [place] post CABG x 2, PCI(stent) angina pectoris 4. HTN/HCVD 5. Hyperlipidemia 6. s/p PPM 7. JANET resolved 8. Hypothyroidism P:1. Ruled out for [place], check TSH, lipid panel 2. F/u pacemaker interrogation, echo to assess ventricular and valve fxn 3. Continue ASA 81 qd, Plavix 75 qd, Lipitor 20 qhs, Toprol XL 25 qd, Diovan 40 qd 4. DVT and GI prophylaxis
[2017-08-02] MEDS: PANTOPRAZOLE 20 MG TABLET (FP) PO SCH (09:48)
[2017-08-02] MEDS: METOPROLOL SUCCINATE 25 MG TAB.SR.24H (FP) PO SCH (09:48)
--- NOTE | 2017-08-02 10:44 | PN ---
Progress Note, Physician Chief Complaint: Not in distress History of Present Illness: Patient was seen and examined. Awake and alert. Chart was reviewed Denies chest pain, SOB or palpitations - Current Medication List Current Medications: Active Medications Aspirin (Asa -) 81 mg PO DAILY [facility] BEDS AT [facility] Last Admin: 08/02/17 09:44 Dose: 81 mg Atorvastatin Calcium (Lipitor -) 20 mg PO HS [facility]CLUDE 234 BEDS AT [facility] Last Admin: 08/01/17 21:27 Dose: 20 mg Clopidogrel Bisulfate (Plavix -) 75 mg PO DAILY [facility] 234 BEDS AT [facility] Last Admin: 08/02/17 09:45 Dose: 75 mg Folic Acid (Folic Acid -) 1 mg PO DAILY [facility]CLUDE 234 BEDS AT [facility] Last Admin: 08/02/17 09:45 Dose: 1 mg Heparin Sodium (Porcine) (Heparin -) 5,000 unit SQ TID [facility] 234 BEDS AT [facility] Last Admin: 08/02/17 06:09 Dose: 5,000 unit Metoprolol Succinate (Toprol Xl -) 25 mg PO DAILY [facility] 234 BEDS AT [facility] Last Admin: 08/02/17 09:48 Dose: 25 mg Pantoprazole Sodium (Protonix -) 20 mg PO DAILY [facility]CLUDE 234 BEDS AT [facility] Last Admin: 08/02/17 09:48 Dose: 20 mg Tamsulosin HCl (Flomax -) 0.4 mg PO HS [facility] 234 BEDS AT [facility] Last Admin: 08/01/17 21:27 Dose: 0.4 mg Thyroid 60 mg/ Thyroid 30 mg 90 mg PO DAILY@0700 [facility] 234 BEDS AT [facility] Last Admin: 08/02/17 06:09 Dose: 90 mg Valsartan (Diovan -) 40 mg PO DAILY [facility]CLUDE 234 BEDS AT [facility] Last Admin: 08/02/17 09:44 Dose: 40 mg - Objective Vital Signs: Vital Signs Temperature 98.1 F 08/02/17 06:00 Pulse Rate 87 08/02/17 09:06 Respiratory Rate 18 08/02/17 06:45 Blood Pressure 111/69 08/02/17 09:06 O2 Sat by Pulse Oximetry (%) 98 08/02/17 01:00 Neck: Yes: Supple Cardiovascular: Yes: Regular Rate and Rhythm, Murmur (MEIR), S1, S2 Respiratory: Yes: CTA Bilaterally Gastrointestinal: Yes: Normal Bowel Sounds, Soft. No: Tenderness Edema: No Additional Findings/Remarks: - Review of Systems Constitutional: denies: Chills, Fever Cardiovascular: denies: Chest Pain, Palpitations, Shortness of Breath Respiratory: denies: Cough, Hemoptysis, Orthopnea Gastrointestinal: denies: Constipation, Diarrhea, Melena, Nausea, Rectal Bleeding, Vomiting Neurological: denies: Dizziness, Headache, Seizure, Syncope Problem List - Problems (1) Bigeminal rhythm Code(s): I49.9 - CARDIAC ARRHYTHMIA, UNSPECIFIED (2) Encephalopathy acute Code(s): G93.40 - ENCEPHALOPATHY, UNSPECIFIED (3) History of permanent cardiac pacemaker placement Code(s): Z95.0 - PRESENCE OF CARDIAC PACEMAKER (4) Thoracic ascending aortic aneurysm Code(s): I71.2 - THORACIC AORTIC ANEURYSM, WITHOUT RUPTURE (5) AV block, complete Code(s): I44.2 - ATRIOVENTRICULAR BLOCK, COMPLETE (6) Aortic stenosis Code(s): I35.0 - NONRHEUMATIC AORTIC (VALVE) STENOSIS Qualifiers: Cardiac valve disease etiology: nonrheumatic Qualified Code(s): I35.0 - Nonrheumatic aortic (valve) stenosis (7) CAD (coronary artery disease) Code(s): I25.10 - ATHSCL HEART DISEASE OF [place] CORONARY ARTERY W/O ANG PCTRS Qualifiers: Coronary Disease-Associated Artery/Lesion type: [place] artery [place] vs. transplanted heart: [place] heart Associated angina: without angina Qualified Code(s): I25.10 - Atherosclerotic heart disease of [place] coronary artery without angina pectoris (8) Diastolic dysfunction without heart failure Code(s): I51.9 - HEART DISEASE, UNSPECIFIED (9) Hx of CABG Code(s): Z95.1 - PRESENCE OF AORTOCORONARY BYPASS GRAFT (10) Hyperlipidemia Code(s): E78.5 - HYPERLIPIDEMIA, UNSPECIFIED Qualifiers: Hyperlipidemia type: pure hypercholesterolemia Qualified Code(s): E78.00 - Pure hypercholesterolemia, unspecified; E78.0 - Pure hypercholesterolemia (11) Hypertension Code(s): I10 - ESSENTIAL (PRIMARY) HYPERTENSION Qualifiers: Hypertension type: essential hypertension Qualified Code(s): I10 - Essential (primary) hypertension (12) Hypothyroidism Code(s): E03.9 - HYPOTHYROIDISM, UNSPECIFIED Qualifiers: Hypothyroidism type: unspecified Qualified Code(s): E03.9 - Hypothyroidism , unspecified (13) Pulmonary hypertension Code(s): I27.2 - OTHER SECONDARY PULMONARY HYPERTENSION * DO NOT USE * Assessment/Plan 1. Transient altered mental status, etiology unclear 2. CAD s/p CABG (reop), angina pectoris 3. Systolic/diastolic LV dysfunction class 0-1 NYHA classification LV failure, currently euvolemic/compensated 4. Aortic valve stenosis 5. HTN/HCVD 6. Hypercholesterolemia 7. AV block post PPM 8. Tricuspid valve regurgitation and pulmonary HTN 9. Carotid stenosis 10. Thoracic aortic aneurysm (ascending 4.0 cm) 11. CKD 12. History of right inguinal lipo-sarcoma post resection 13. Anemia PLAN: 1. No need to re-interrogate at this time - he can be followed in the office 2. Continue Toprol XL and Diovan as tolerated 3. Continue Lipitor 4. Continue ASA and Plavix 5. No further cardiac intervention is needed at this time 6. Carotid Doppler showed moderate atherosclerotic carotid artery disease Further plans are to follow. Discharge planning Celestino Evans MD
[2017-08-02 14:39] VITALS: BP 101/65; PULSE 79; TEMP 97.8
--- NOTE | 2017-08-02 18:44 | EKG ---
Test Reason : Blood Pressure : / mmHG Vent. Rate : 077 BPM Atrial Rate : 077 BPM P-R Int : 250 ms QRS Dur : 114 ms QT Int : 392 ms P-R-T Axes : 067 -03 013 degrees QTc Int : 443 ms Atrial-paced rhythm with prolonged AV conduction IN A PATTERN OF BIGEMINY LOW VOLTAGE QRS INCOMPLETE RIGHT BUNDLE BRANCH BLOCK CANNOT RULE OUT ANTERIOR INFARCT (CITED ON OR BEFORE 31-OCT-2015) ABNORMAL ECG WHEN COMPARED WITH ECG OF 31-OCT-2015 10:08, ELECTRONIC ATRIAL PACEMAKER HAS REPLACED SINUS RHYTHM Confirmed by SUZANNE COTTRELL MD ([id number]) on 08/02/2017 6:44:06 PM Referred By: Confirmed By:SUZANNE COTTRELL MD
== END 2017-08-02 17:12 | disposition home or self-care (01) ==
LOC: JER 10:28 → JERBED 14:05 → J4W 17:42
PROVIDERS: ADMIT Hospitalist; ATTEND Nurse Practitioner Acute Care
PROC: 3E0337Z Introduction of Electrolytic and Water Balance Substance into Peripheral Vein, Percutaneous Approach (ICD-10-PCS; principal; 2017-07-31)
PROC: 3E013GC Introduction of Other Therapeutic Substance into Subcutaneous Tissue, Percutaneous Approach (ICD-10-PCS; 2017-07-31)
DX: I49.9 Cardiac arrhythmia, unspecified (principal); R00.2 Palpitations; G93.40 Encephalopathy, unspecified; I44.2 Atrioventricular block, complete; I35.0 Nonrheumatic aortic (valve) stenosis; I25.10 Atherosclerotic heart disease of native coronary artery without angina pectoris; I10 Essential (primary) hypertension; I25.2 Old myocardial infarction; I27.20 Pulmonary hypertension, unspecified; I71.2 Thoracic aortic aneurysm, without rupture; E78.5 Hyperlipidemia, unspecified; E03.9 Hypothyroidism, unspecified; N40.0 Benign prostatic hyperplasia without lower urinary tract symptoms; N17.9 Acute kidney failure, unspecified; Z95.0 Presence of cardiac pacemaker; Z95.1 Presence of aortocoronary bypass graft; Z95.5 Presence of coronary angioplasty implant and graft; Z79.82 Long term (current) use of aspirin; Z88.0 Allergy status to penicillin
CPT/HCPCS: 36415; 70450-TC; 71010-TC; 80053; 82550; 83735; 83880; 84100; 84484; 85025; 85027; 85610; 85730; 86850; 86900; 86901; 93005; 93010; 93306-TC; 93880-TC; 96360; 96372; 99284-25; G0378; J1644

== ENCOUNTER 2018-10-12 12:33 | Emergency (ER) | payer OTHER ==
[2018-10-12 13:21] VITALS: BP 126/66; PULSE 73; TEMP 98.2; BMI 23.6
--- NOTE | 2018-10-12 15:25 | PDOC ---
History of Present Illness - General Chief Complaint: Pain Stated Complaint: RT LEG PAIN Time Seen by Provider: 10/12/18 14:26 History Source: Patient Exam Limitations: Clinical Condition - History of Present Illness Initial Comments: 10/12/18 15:53 Patient with h/o sarcoma of RLE and cardiac arrhythmia on stent and pacemaker present with complaint of right knee giving out while ambulating this Morning. he denies any trauma or injury to knee. Patient reported mild tenderness over the superior aspect of right knee. Patient denies any other symptoms Patient using compression stockings daily on RLE due to having removed lympoh nodes and vascular clips from sarcoma. Timing/Duration: 4-6 hours Past History - Past Medical History Allergies/Adverse Reactions: Allergies Allergy/AdvReac Type Severity Reaction Status Date / Time Penicillins Allergy Verified 10/12/18 13:17 Home Medications: Ambulatory Orders Aspirin [ASA -] 81 mg PO DAILY 10/31/15 Candesartan Cilexetil [Atacand -] 4 mg PO DAILY 10/31/15 Clopidogrel Bisulfate [Clopidogrel] 75 mg PO DAILY 10/31/15 Folic Acid 1 mg PO DAILY 10/31/15 Metoprolol Succinate [Toprol XL -] 25 mg PO DAILY 10/31/15 Omeprazole 20 mg PO DAILY 10/31/15 Simvastatin 40 mg PO HS 10/31/15 Tamsulosin HCl 0.4 mg PO HS 10/31/15 Thyroid,Pork [[employer] Thyroid] 90 mg PO DAILY 10/31/15 Travoprost [Travatan Z] 1 drop IO DAILY 10/31/15 Meloxicam 15 mg PO DAILY PRN #20 tablet 10/12/18 Cancer: Yes (sarcoma) Cardiac Disorders: Yes (PACEMAKER/sudden cardiac arrest/7 stents) COPD: No Diabetes: Yes - Surgical History Cardiac Surgery: Yes (quadruple bypass 1999) Cholecystectomy: Yes - Immunization History Immunization Up to Date: Yes - Suicide/Smoking/Psychosocial Hx Smoking Status: No Smoking History: Never smoked Have you smoked in the past 12 months: Yes Number of Cigarettes Smoked Daily: 0 Hx Alcohol Use: No Drug/Substance Use Hx: No Substance Use Type: None Hx Substance Use Treatment: No Review of Systems - Review of Systems Able to Perform ROS?: Yes Is the patient limited Spanish proficient: No Constitutional: Yes: Weakness (right knee) HEENTM: No: Recent change in vision, Double Vision Respiratory: No: Symptoms reported Cardiac (ROS): No: Symptoms Reported Musculoskeletal: Yes: Joint Pain (right knee), Muscle Weakness (right knee). No : Muscle Pain All Other Systems: Reviewed and Negative *Physical Exam - Vital Signs Last Vital Signs Temp Pulse Resp BP Pulse Ox 98.2 F 73 18 126/66 96 10/12/18 13:18 10/12/18 13:18 10/12/18 13:18 10/12/18 13:18 10/12/18 13:18 - Physical Exam Comments: 10/12/18 15:56 GENERAL: Well developed, well nourished. Awake and alert. No acute distress. CARDIOVASCULAR: Regular rate and rhythm. No murmurs, rubs, or gallops. PULMONARY: No evidence of respiratory distress. Lungs clear to auscultation bilaterally. No wheezing, rales or rhonchi. ABDOMINAL: Soft. Non-tender. Non-distended. No rebound or guarding. No organomegaly. Normoactive bowel sounds MUSCULOSKELETAL : mild tenderness over anterior patella and suprapatella region. no joint effusions. negative anterior-posterior drawer test of right knee. No bony deformities EXTREMITIES: No cyanosis. No clubbing. No edema. No calf tenderness. SKIN: Warm and dry. Normal capillary refill. NEUROLOGICAL: Alert, awake, appropriate. No motor deficits in the lower extremities. PSYCHIATRIC: Cooperative. Good eye contact. Appropriate mood and affect. 10/12/18 16:29 General Appearance: Yes: Nourished, Appropriately Dressed. No: Apparent Distress Moderate Sedation - Procedure Monitoring Vital Signs: Procedure Monitoring Vital Signs Temperature 98.2 F 10/12/18 13:18 Pulse Rate 73 10/12/18 13:18 Respiratory Rate 18 10/12/18 13:18 Blood Pressure 126/66 10/12/18 13:18 O2 Sat by Pulse Oximetry (%) 96 10/12/18 13:18 ED Treatment Course - RADIOLOGY Radiology Studies Ordered: Category Date Time Status KNEE 3 POS-RIGHT [RAD] Stat Radiology 10/12/18 14:42 Taken Medical Decision Making - Medical Decision Making 10/12/18 16:32 Patient with h/o sarcoma of RLE and cardiac arrhythmia on stent and pacemaker present with complaint of right knee giving out while ambulating this Morning. he denies any trauma or injury to knee. Patient reported mild tenderness over the superior aspect of right knee. Patient denies any other symptoms Patient using compression stockings daily on RLE due to having removed lympoh nodes and vascular clips from sarcoma. Exam significant for mild tenderness over anterior patella and suprapatella region. no joint effusions. negative anterior-posterior drawer test of right knee. No bony deformities 10/12/18 16:32 x-ray of right knee shows not acute pathology. no dislocation or joint effusion on x-ray. symptom likely from knee strain. Patient stable for discharge on meloxicam as needed for pain and patrick wrap to knee with ortho follow-up *DC/Admit/Observation/Transfer Diagnosis at time of Disposition: Strain of right knee and leg Qualifiers: Encounter type: initial encounter Qualified Code(s): S86.911A - Strain of unspecified muscle(s) and tendon(s) at lower leg level, right leg, initial encounter - Discharge Dispostion Disposition: HOME Condition at time of disposition: Stable Decision to Admit order: No - Prescriptions Prescriptions: Meloxicam 15 mg PO DAILY PRN #20 tablet PRN Reason: knee pain - Referrals Referrals: Clovis Greer DO [Staff Physician] - - Patient Instructions Printed Discharge Instructions: How to Use an Elastic Bandage-Knee Sprain, DI for Knee Sprain Additional Instructions: Your knee x-ray shows no acute dislocation or fracture. Keep applied Patrick bandage on daily to help support knee. Take prescribed medication as needed for pain. Follow-up referred to orthopedics if symptoms persisted for more than 3 days for possible MRI of the knee - Post Discharge Activity
== END 2018-10-12 15:26 | disposition home or self-care (01) ==
LOC: JERFT 12:33
DX: S86.811A Strain of other muscle(s) and tendon(s) at lower leg level, right leg, initial encounter (principal); X50.9XXA Other and unspecified overexertion or strenuous movements or postures, initial encounter; Y93.01 Activity, walking, marching and hiking; Y92.89 Other specified places as the place of occurrence of the external cause; Y99.8 Other external cause status; I25.10 Atherosclerotic heart disease of native coronary artery without angina pectoris; Z95.1 Presence of aortocoronary bypass graft; Z95.5 Presence of coronary angioplasty implant and graft; Z95.0 Presence of cardiac pacemaker; E11.9 Type 2 diabetes mellitus without complications; Z86.74 Personal history of sudden cardiac arrest; Z85.831 Personal history of malignant neoplasm of soft tissue; Z90.49 Acquired absence of other specified parts of digestive tract
CPT/HCPCS: 73562-TC-RT-FY; 99281-25

== ENCOUNTER 2019-04-23 08:57 | Inpatient (IN) | payer OTHER ==
[2019-04-23 09:06] VITALS: BMI 27.3
--- NOTE | 2019-04-23 09:10 | PDOC ---
History of Present Illness - General Chief Complaint: CVA/TIA Stated Complaint: STROKE Time Seen by Provider: 04/23/19 08:59 - History of Present Illness Initial Comments: 04/23/19 09:31 83M with pmh of coronary artery disease, s/p CABG, reop, systolic/diastolic LV dysfunction with chronic 0-1 NYHA classification LV failure, aortic valve stenosis, AV block post PPM ([employer]) hypertension, hypercholesterolemia, history of sarcoma (right inguinal) post resection and anemia as well as TIA back in 2017 in this hospital. Patient felt left arm and hand numbness around 8am this morning and was slurring his speech. noticed that he had left sided facial droop. He took two baby aspirins and called EMS. When EMS arrived 45min after onset/last known normal, he has significantly improved his facial droop and speech. Is on Clopidogrel but denies recent trauma, fall, previous head bleed, recent suregry over the past 3 months, recent travel, or concern for GI bleed. Had similar episode of probable TIA back in 2017 in this hospital. Code [place] announced. 04/23/19 09:39 Patient now back to baseline. No deficit. Past History - Past Medical History Allergies/Adverse Reactions: Allergies Allergy/AdvReac Type Severity Reaction Status Date / Time Penicillins Allergy Verified 04/23/19 08:59 Home Medications: Ambulatory Orders Aspirin [ASA -] 81 mg PO DAILY 10/31/15 Clopidogrel Bisulfate [Clopidogrel] 75 mg PO DAILY 10/31/15 Folic Acid 1 mg PO DAILY 10/31/15 Metoprolol Succinate [Toprol XL -] 25 mg PO DAILY 10/31/15 Omeprazole 20 mg PO DAILY 10/31/15 Tamsulosin HCl 0.4 mg PO HS 10/31/15 Thyroid,Pork [[employer] Thyroid] 90 mg PO DAILY 10/31/15 Travoprost [Travatan Z] 1 drop OU DAILY 10/31/15 Metformin HCl [Glucophage] 500 mg PO BID 04/23/19 Pantoprazole Sodium [Protonix -] 20 mg PO DAILY 04/23/19 Valsartan [Diovan] 40 mg PO DAILY 04/23/19 Cancer: Yes (sarcoma) Cardiac Disorders: Yes (PACEMAKER/sudden cardiac arrest/7 stents) COPD: No Diabetes: Yes - Surgical History Cardiac Surgery: Yes (quadruple bypass 1999) Cholecystectomy: Yes - Immunization History Immunization Up to Date: Yes - Suicide/Smoking/Psychosocial Hx Smoking Status: No Smoking History: Never smoked Have you smoked in the past 12 months: Yes Number of Cigarettes Smoked Daily: 0 Hx Alcohol Use: No Drug/Substance Use Hx: No Substance Use Type: None Hx Substance Use Treatment: No Review of Systems - Review of Systems Able to Perform ROS?: Yes Is the patient limited Hong [place]er proficient: No Constitutional: No: Symptoms Reported HEENTM: No: Symptoms Reported Respiratory: No: Symptoms reported Cardiac (ROS): No: Symptoms Reported ABD/GI: No: Symptoms Reported : No: Symptoms Reported Musculoskeletal: No: Symptoms Reported Integumentary: No: Symptoms Reported Neurological: Yes: See HPI All Other Systems: Reviewed and Negative *Physical Exam - Physical Exam General Appearance: Yes: Nourished, Appropriately Dressed. No: Apparent Distress HEENT: positive: EOMI, ALAN, Normal ENT Inspection Respiratory/Chest: positive: Lungs Clear, Normal Breath Sounds, Other (vertical midline surgical scar, well healed.). negative: Chest Tender, Respiratory Distress Cardiovascular: positive: Regular Rhythm, Regular Rate, S1, S2 Gastrointestinal/Abdominal: positive: Normal Bowel Sounds, Flat, Soft. negative : Tender Musculoskeletal: positive: Normal Inspection. negative: CVA Tenderness Extremity: positive: Normal Capillary Refill, Normal Inspection, Normal Range of Motion Integumentary: positive: Normal Color, Dry, Warm Neurologic: positive: subscription crew leader II-XII NML intact, Fully Oriented, Alert, Normal Mood/ Affect, Normal Response, Motor Strength 5/5 NIH Stroke Scale - Last Known Well Date/Time & Onset Date Last Known Well: 04/23/19 Time Last Known Well: 08:00 - Initial Evaluation Level of consciousness: Alert Ask patient the month and their age: Answers both correctly Ask patient to open & close eyes; make fist and let go: Obeys both correctly Best gaze (horizontal eye movement): Normal Visual field testing: No visual field loss Facial paresis (Show teeth/raise eyebrows/close eyes tight): Partial paralysis ( total or near paralysis of lower face) Motor Function: Left Arm: Normal Motor Function: Right Arm: Normal (extends arm 90 (or 45) degrees for 10 seconds without drift Motor Function: Left Leg: Normal (extends leg 30 degrees for 5 seconds without drift) Motor Function: Right Leg: Normal (extends leg 30 degrees for 5 seconds without drift) Limb Ataxia: No ataxia Sensory(Use pinprick test arms,legs,trunk,face/side to side): Normal Best language (Describe picture, name items, read sentences): No Aphasia Dysarthria (read several words): Mild to moderate slurring of words Extinction and Inattention: No abnormality - Total Score NIH Stroke Scale Score: 3 tPA Exclusion Checklist 0-3hr - Time Elapsed Date last known well: 04/23/19 Time last known well: 08:00 Elaspsed time: Day(s) and 2 Hour(s) and 54 Minutes - Thrombolytic Therapy Candidate Is the patient eligible for Thrombolytic Therapy?: No - Exclusion Criteria 0-3hr SBP greater than 185 or DBP greater than 110mmHg despite tx: No Recent IC/spinal surgery,head trauma or stroke w/in last 3mo: No Hx of previous IC hemorrhage, IC neoplasm, AVM or aneurysm: No Active internal bleeding: No Blding diathesis(low plt ct, inc PTT,INR>1.7 or use of NOAC): No Symptoms suggest subarachnoid hemorrhage: No CT demonstrates multilobar infarct(>1/3 cerebral hemiphere): No Arterial puncture at noncompressible site in previous 7 days: No Blood glucose concentration less than 50mg/dL (2.7mmol/L): No - Relative Exclusion Criteria 0-3h Life expectancy <1yr/severe co-morbid illness/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 on admit: No : No Patient/family refused: No Rapid improvement: No Stroke severity too mild: Yes Recent acute AR (w/in previous 3 months): No Seizure at onset with postictal residual neuro impairments: No Major surgery or serious trauma w/in previous 14 days: No Recent GI or hemorrhage (w/in previous 21 days): No - Ineligibility reason(s) Reasons No tPA given: See reason(s) noted above TIA Risk Factors - ABCD Score Age: Age = or > 60 Blood Pressure: SBP =/> 140 Clinical Features of TIA: Speech impair w/o uni wk Duration: TIA duration 10-59 min Diabetes: No Total ABCD2 Score (0-7):: 4 Critical Care Time/MDM Note - Medical Decision Making Note: 04/23/19 09:56 EKG: Atrial-paced rhythm with prolonged AV conduction, low voltage QRs, cannot rule out inferior and anterior infarct, T wave abnormality, consider lateral ischemia. Stroke order set. Ct head: no evidence of acute hemorrhage. Labs wnl. Patient still at baseline. Likely TIA. Spoke to Dr. Valentino, neurologist building consultant. Admit to Stroke obs. Admitted to stroke obs *DC/Admit/Observation/Transfer Diagnosis at time of Disposition: Transient ischemic attack - Discharge Dispostion Decision to Admit order: Yes - Referrals Referrals: Yumiko Haskins [Primary Care Provider] - - Patient Instructions - Post Discharge Activity
--- NOTE | 2019-04-23 09:13 | PDOC ---
Attending Attestation - Resident Resident Name: Edison Alva - ED Attending Attestation I have performed the following: I have examined & evaluated the patient, The case was reviewed & discussed with the resident, I agree w/resident's findings & plan, Exceptions are as noted - HPI HPI: 83 yo M history CAD s/p CABG (and subsequent revision), CHF, aortic stenosis, pacemaker, HTN, HL, R inguinal sarcoma s/p resection, anemia presents with L arm and hand numbness, slurred speech starting at 8am. notes that he had a facial droop at the time, that has now resolved. Speech changes and numbness have resolved shortly after arrival in the ED. +History of similar symptoms in 2017 as per chart review. - Physicial Exam PE: GENERAL: Awake, alert, and fully oriented, in no acute distress HEAD: No signs of trauma EYES: PERRLA, EOMI, sclera anicteric, conjunctiva clear ENT: Auricles normal inspection, hearing grossly normal, nares patent, oropharynx clear without exudates. Moist mucosa NECK: Normal ROM, supple, no lymphadenopathy, JVD, or masses LUNGS: Breath sounds equal, clear to auscultation bilaterally. No wheezes, and no crackles HEART: Regular rate and rhythm, normal S1 and S2, no murmurs, rubs or gallops ABDOMEN: Soft, nontender, normoactive bowel sounds. No guarding, no rebound. No masses EXTREMITIES: Normal range of motion, no edema. No clubbing or cyanosis. No cords, erythema, or tenderness. +Compression stocking to LLE (history of lymph node removal) NEUROLOGICAL: Cranial nerves II through XII grossly intact. Normal speech, normal gait. Motor and sensation intact SKIN: Warm, dry, normal turgor, no rashes or lesions noted. Well-healed scars to RUQ abd, L forehead, mid-sternum. - Medical Decision Making Pt NIHSS is back to [address] CTH negative for ICH. Case d/w neuro , will admit. NIH Stroke Scale - Last Known Well Date/Time & Onset Date Last Known Well: 04/23/19 Time Last Known Well: 08:30 - Initial Evaluation Level of consciousness: Alert Ask patient the month and their age: Answers both correctly Ask patient to open & close eyes; make fist and let go: Obeys both correctly Best gaze (horizontal eye movement): Normal Visual field testing: No visual field loss Facial paresis (Show teeth/raise eyebrows/close eyes tight): Normal symmetrical movement Motor Function: Left Arm: Normal Motor Function: Right Arm: Normal (extends arm 90 (or 45) degrees for 10 seconds without drift Motor Function: Left Leg: Normal (extends leg 30 degrees for 5 seconds without drift) Motor Function: Right Leg: Normal (extends leg 30 degrees for 5 seconds without drift) Limb Ataxia: No ataxia Sensory(Use pinprick test arms,legs,trunk,face/side to side): Normal Best language (Describe picture, name items, read sentences): No Aphasia Dysarthria (read several words): Normal articulation Extinction and Inattention: No abnormality - Total Score NIH Stroke Scale Score: 0
[2019-04-23 09:34] LABS: BASO % 0.2 % (0-2.0); EOS % 3.6 % (0-4.5); HEMATOCRIT 35.8 % (35.4-49); HEMOGLOBIN 12.1 GM/dL (11.7-16.9); LYMPH % 30.6 % (8-40); MCHC 33.8 g/dl (32.0-35.9); MEAN CELL VOLUME 91.7 fl (80-96); MEAN PLT VOLUME 8.3 fl (7.5-11.1); MONO % 9.2 % (3.8-10.2); NEUT % 56.4 % (42.8-82.8); PLATELET COUNT 208 K/MM3 (134-434); RBC 3.91 M/mm3 (4.00-5.60); RDW 14.9 % (11.9-15.9); WHITE BLOOD COUNT 6.7 K/mm3 (4.0-10.0)
[2019-04-23 09:41] LABS: INR 1.12 (0.83-1.09); PROTHROMBIN TIME (PATIENT) 13.2 SEC (9.7-13.0)
[2019-04-23 10:05] LABS: ALBUMIN 3.6 g/dl (3.4-5.0); ALK PHOS 83 U/L (45-117); ANION GAP 8 MMOL/L (8-16); BILIRUBIN,TOTAL 0.6 mg/dL (0.2-1); BLOOD UREA NITROGEN 30.8 mg/dL (7-18); CALCIUM 8.9 mg/dL (8.5-10.1); CHLORIDE 109 mmol/L (98-107); CHOLESTEROL 154 mg/dL (50-200); CO2 24 mmol/L (21-32); CREATININE 1.3 mg/dL (0.55-1.3); GLUCOSE,RANDOM 107 mg/dL (74-106); HDL CHOLESTEROL 53 mg/dL (40-60); SGOT/AST 27 U/L (15-37); SGPT/ALT 27 U/L (13-61); SODIUM 140 mmol/L (136-145); TRIGLYCERIDES 88 mg/dL (0-150)
--- NOTE | 2019-04-23 11:25 | CON.NEURO ---
Consult Consult Specialty:: [facility] Referred by:: ER - History of Present Illness History of Present Illness: 83 yeas old man with PMH CAD s/p CABG (and subsequent revision), CHF, aortic stenosis, pacemaker, HTN, HL , R inguinal sarcoma s/p resection, anemia 8 AM slurred speech [facility] ER Resolved Not a candidate for TPA Patient is on Plavix Took two ASA when the patient was evaluated in the emergency room patient had complete resolution of his speech problem patient was complaining of left arm numbness which is better but not 100%. 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 - Past Surgical History Past Surgical History: Yes: CABG, Permanent Pacemaker - Alcohol/Substance Use Hx Alcohol Use: No History of Substance Use: reports: None - Smoking History Smoking history: Never smoked Have you smoked in the past 12 months: Yes Aproximately how many cigarettes per day: 0 - Social History Usual Living Arrangement: With Spouse ADL: Independent History of Recent Travel: No Home Medications - Allergies Allergies/Adverse Reactions: Allergies Allergy/AdvReac Type Severity Reaction Status Date / Time Penicillins Allergy Verified 04/23/19 08:59 - Home Medications Home Medications: Ambulatory Orders Aspirin [ASA -] 81 mg PO DAILY 10/31/15 Clopidogrel Bisulfate [Clopidogrel] 75 mg PO DAILY 10/31/15 Folic Acid 1 mg PO DAILY 10/31/15 Metoprolol Succinate [Toprol XL -] 25 mg PO DAILY 10/31/15 Omeprazole 20 mg PO DAILY 10/31/15 Tamsulosin HCl 0.4 mg PO HS 10/31/15 Thyroid,Pork [[place] Thyroid] 90 mg PO DAILY 10/31/15 Travoprost [Travatan Z] 1 drop OU DAILY 10/31/15 Metformin HCl [Glucophage] 500 mg PO BID 04/23/19 Pantoprazole Sodium [Protonix -] 20 mg PO DAILY 04/23/19 Valsartan [Diovan] 40 mg PO DAILY 04/23/19 Physical Exam-Neuro Vital Signs: Vital Signs Temperature 98 F 04/23/19 09:33 Pulse Rate 70 04/23/19 09:33 Respiratory Rate 18 04/23/19 09:33 Blood Pressure 127/90 04/23/19 09:33 O2 Sat by Pulse Oximetry (%) 97 04/23/19 09:33 Labs: CBC, BMP 04/23/19 09:15 04/23/19 09:15 INR, PTT INR 1.12 (0.83-1.09) H 04/23/19 09:15 - Neuro Exam Level Of Consciousness: Yes: Oriented to Person, Oriented to Place, Oriented to Time Eyes: Yes: PERRLA Speech: WNL Dominant Hand: Right Cranial Nerves II-XII Intact: Yes Gag: Present DTR's: 1+ Left Bicep, 1+ Right Bicep, 1+ Left Brachioradialis, 1+ Right Brachioradialis Babinski: Absent Response to light touch: Normal Response to pain prick: Normal Response to temperature: Normal Motor Strength: 3/5: Left Arm, Right Arm, Left Leg, Right Leg Gait: Deferred Imaging - Results Cat Scan: Image Reviewed Problem List - Problems (1) Transient ischemic attack Assessment/Plan: 1. Neuro check q1 2. ASA 3. Plvaix 4. CTA head 5. Homocysteine level 6. PT 7. Speech eval Code(s): G45.9 - TRANSIENT CEREBRAL ISCHEMIC ATTACK, UNSPECIFIED
--- NOTE | 2019-04-23 11:30 | EKG ---
Test Reason : Blood Pressure : / mmHG Vent. Rate : 070 BPM Atrial Rate : 070 BPM P-R Int : 274 ms QRS Dur : 120 ms QT Int : 404 ms P-R-T Axes : 046 006 016 degrees QTc Int : 436 ms Atrial-paced rhythm with prolonged AV conduction LOW VOLTAGE QRS CANNOT RULE OUT INFERIOR INFARCT (CITED ON OR BEFORE 27-JUN-2012) CANNOT RULE OUT ANTERIOR INFARCT (CITED ON OR BEFORE 31-OCT-2015) T WAVE ABNORMALITY, CONSIDER LATERAL ISCHEMIA ABNORMAL ECG WHEN COMPARED WITH ECG OF 31-JUL-2017 10:36, T WAVE INVERSION MORE EVIDENT IN ANTERIOR LEADS Confirmed by TD RASCON MD ([id number]) on 04/23/2019 11:30:06 AM Referred By: Confirmed By:TD RASCON MD
--- NOTE | 2019-04-23 13:02 | HP ---
CHIEF COMPLAINT: L sided facial numbness, slurred speech, LUE numbness PCP: Dr. Haskins Cardio: Dr. Monson HISTORY OF PRESENT ILLNESS: 83M w/ pmhx of CAD s/p CABG (and subsequent revision), CHF, aortic stenosis, pacemaker, HTN, HL, R inguinal sarcoma s/p resection 2 years ago, anemia presented to the ED after complaints of L sided facial numbness, slurred speech , drooling, and LUE numbness that started at approximately 8am today. Pt states he was at home walking around his house when he suddenly started experiencing these symptoms. Slurred speech was witnessed by his . At this time, he sat down after which his symptoms resolved after 10 minutes. Denies associated symptoms such as chest pain, headache, dizziness, shortness of breath, weakness , abd pain, nausea/vomiting. He was immediately brought to the ED for further evaluation. Pt states he was told he had stroke-like symptoms in the past, but he himself could not recall any similar episodes. Upon encounter, pt was found to be asymptomatic with normal speech and no complaints. Pt admits to taking 2 ASA after experiencing symptoms. Of note, he was recently seen by his missile mechanic, Dr. Monson, about 2 weeks ago and had a recent interrogation of his pacemaker then that did not show abnormal results per the patient. ER course was notable for: (1) Head CT neg (2) Neuro (Dr. Valentino) contacted (3) Initial NIHSS 3 (in ED) Recent Travel: Denies PAST MEDICAL HISTORY: As per HPI PAST SURGICAL HISTORY: CABG (quadruple bypass in 1999; with revision) Resection of R inguinal sarcoma (2 years ago) PPM placement Cholecystectomy Social History: Smoking: Denies Alcohol: Denies Drugs: Denies Family History: Denies Allergies Penicillins Allergy (Verified 04/23/19 08:59) HOME MEDICATIONS: Home Medications Medication Instructions Recorded Aspirin [ASA -] 81 mg PO DAILY 10/31/15 Clopidogrel Bisulfate [Clopidogrel] 75 mg PO DAILY 10/31/15 Folic Acid 1 mg PO DAILY 10/31/15 Metoprolol Succinate [Toprol XL -] 25 mg PO DAILY 10/31/15 Omeprazole 20 mg PO DAILY 10/31/15 Tamsulosin HCl 0.4 mg PO HS 10/31/15 Thyroid,Pork [[place] Thyroid] 90 mg PO DAILY 10/31/15 Travoprost [Travatan Z] 1 drop OU DAILY 10/31/15 Metformin HCl [Glucophage] 500 mg PO BID 04/23/19 Pantoprazole Sodium [Protonix -] 20 mg PO DAILY 04/23/19 Valsartan [Diovan] 40 mg PO DAILY 04/23/19 REVIEW OF SYSTEMS CONSTITUTIONAL: Absent: fever, chills, diaphoresis, generalized weakness, malaise, loss of appetite, weight change HEENT: Absent: rhinorrhea, nasal congestion, throat pain, throat swelling, difficulty swallowing, mouth swelling, ear pain, eye pain, visual changes CARDIOVASCULAR: Absent: chest pain, syncope, palpitations, irregular heart rate, lightheadedness , peripheral edema RESPIRATORY: Absent: cough, shortness of breath, dyspnea with exertion, orthopnea, wheezing, stridor, hemoptysis GASTROINTESTINAL: Absent: abdominal pain, abdominal distension, nausea, vomiting, diarrhea, constipation, melena, hematochezia GENITOURINARY: Absent: dysuria, frequency, urgency, hesitancy, hematuria, flank pain, genital pain MUSCULOSKELETAL: Absent: myalgia, arthralgia, joint swelling, back pain, neck pain SKIN: Absent: rash, itching, pallor HEMATOLOGIC/IMMUNOLOGIC: Absent: easy bleeding, easy bruising, lymphadenopathy, frequent infections ENDOCRINE: Absent: unexplained weight gain, unexplained weight loss, heat intolerance, cold intolerance NEUROLOGIC: Absent: headache, focal weakness or paresthesias, dizziness, unsteady gait, seizure, mental status changes, bladder or bowel incontinence PSYCHIATRIC: Absent: anxiety, depression, suicidal or homicidal ideation, hallucinations. PHYSICAL EXAMINATION Vital Signs - 24 hr 04/23/19 04/23/19 04/23/19 08:57 09:31 09:33 Temperature 97.6 F 98 F Pulse Rate 75 Pulse Rate [ 70 Apical] Respiratory 16 18 Rate Blood Pressure 149/87 Blood Pressure 127/90 [Left Arm] O2 Sat by Pulse 100 100 97 Oximetry (%) GENERAL: Pleasant, well-appearing male. AAOx3. NAD. Resting comfortably in bed. HEENT: AT/NC. EOMI. Dry mucus membranes. ROCCO. Lungs: CTA B/L. No wheezes, rhonchi, rales noted. Symmetric chest rise. Heart: RRR. Normal S1, S2. No murmurs, rubs or gallop noted. No reproducible chest tenderness. Abd: Soft, NT/ND. Normoactive bowel sounds noted. No masses noted. Ext: No peripheral edema. Neuro: Facial symmetry noted. Normal speech. Follows all commands. CN II-XII intact. [id number] normal. MSK: +5/5 muscle strength in b/l UE including shoulder flexion/extension and elbow flexion/extension. +5/5 hand hand or machine paster b/l. +5/5 b/l b/l LE hip flexion/ extension and knee flexion/extension. 2+ dorsalis pedis pulses. Laboratory Results - last 24 hr 04/23/19 04/23/19 04/23/19 09:15 09:15 09:15 WBC 6.7 RBC 3.91 L Hgb 12.1 Hct 35.8 MCV 91.7 MCH 31.0 MCHC 33.8 RDW 14.9 Plt Count 208 MPV 8.3 Absolute Neuts (auto) 3.8 Neutrophils % 56.4 Lymphocytes % 30.6 Monocytes % 9.2 Eosinophils % 3.6 Basophils % 0.2 Nucleated RBC % 0 PT with INR INR Sodium 140 Potassium 5.0 Chloride 109 H Carbon Dioxide 24 Anion Gap 8 BUN 30.8 H Creatinine 1.3 Est GFR (CKD-EPI)AfAm 58.07 Est GFR (CKD-EPI)NonAf 50.10 POC Glucometer Random Glucose 107 H Calcium 8.9 Total Bilirubin 0.6 AST 27 ALT 27 Alkaline Phosphatase 83 Creatine Kinase 45 Troponin I < 0.02 Total Protein 7.0 Albumin 3.6 Triglycerides 88 Cancelled Cholesterol 154 Total LDL Cholesterol 80 Cancelled HDL Cholesterol 53 Blood Type Antibody Screen 04/23/19 04/23/19 04/23/19 09:15 09:15 09:15 WBC RBC Hgb Hct MCV MCH MCHC RDW Plt Count MPV Absolute Neuts (auto) Neutrophils % Lymphocytes % Monocytes % Eosinophils % Basophils % Nucleated RBC % PT with INR 13.20 H INR 1.12 H Sodium Potassium Chloride Carbon Dioxide Anion Gap BUN Creatinine Est GFR (CKD-EPI)AfAm Est GFR (CKD-EPI)NonAf POC Glucometer 100 Random Glucose Calcium Total Bilirubin AST ALT Alkaline Phosphatase Creatine Kinase Troponin I Total Protein Albumin Triglycerides Cholesterol Total LDL Cholesterol HDL Cholesterol Blood Type O POSITIVE Antibody Screen Negative IMAGING: * Head CT: No significant interval change or acute IC pathology identified. There remains volume loss, ventricular dilatation and mild periventricular chronic microvascular ischemic disease changes. ASSESSMENT/PLAN: 83M w/ pmhx of CAD s/p CABG (and subsequent revision), CHF, aortic stenosis, pacemaker, HTN, HLD, R inguinal sarcoma s/p resection 2 years ago, anemia presented to the ED after complaints of L sided facial numbness, slurred speech , drooling, and LUE numbness found to have a TIA admitted under observation for r/o stroke. #TIA; Resolved, now asymptomatic. -Seen by neuro (Dr. Valentino); not a candidate for tPA. Homocysteine level ordered -Head CT neg -Admit to tele; EKG showed atrial-paced rhythm with prolonged AV conduction, QTc 436, HR 70 -Speech eval/Neuro check Q1H -PT/Fall risk precautions/Stroke dysphagia screen/HOB elevated -Carotid duplex ordered #CAD s/p CABG; Cont home meds: ASA 81, Plavix 75 QD #Hx of Aortic Stenosis -Cardio consulted, follows with Dr. Monson as outpatient. Pt recently seen 2 weeks, PPM interrogated with no abnormal findings per patient. #HTN/HLD; Cont home meds: Valsartan 40 QD, Toprol XL 25 QD, #NIDDM; Hold all oral DM meds. BGM/ISS ACHS. #Glaucoma; Cont home meds: Travoprost 1 drop OU QD #Prophylaxis -SCDs, Lovenox FEN -no IVf -recheck lytes in AM -diabetic diet if pt passes bedside swallow eval Dispo -admit to tele obs Visit type - Emergency Visit Emergency Visit: Yes ED Registration Date: 04/23/19 Care time: The patient presented to the Emergency Department on the above date and was hospitalized for further evaluation of their emergent condition. - New Patient This patient is new to me today: Yes Date on this admission: 04/23/19 - Critical Care Critical Care patient: No ATTENDING PHYSICIAN STATEMENT I saw and evaluated the patient. I reviewed the resident's note and discussed the case with the resident. I agree with the resident's findings and plan as documented. SUBJECTIVE: OBJECTIVE: ASSESSMENT AND PLAN:
[2019-04-23] MEDS: THYROID 60 MG TABLET PO SCH (13:21)
[2019-04-23] MEDS: VALSARTAN 40 MG TABLET (FP) PO SCH (13:21)
[2019-04-23] MEDS: ASPIRIN 81 MG CHEWABLE TABLETS PO SCH (13:21)
[2019-04-23] MEDS: FOLIC ACID 1 MG TABLET (FP) PO SCH (13:22)
[2019-04-23] MEDS: CLOPIDOGREL BISULFATE 75 MG TABLET (FP) PO SCH (13:22)
[2019-04-23] MEDS: metoPROLOL SUCCINATE 25 MG TAB.SR.24H (FP) PO SCH (13:22)
[2019-04-23 14:13] LABS: URINE APPEARANCE Clear; URINE BILIRUBIN Negative (NEGATIVE); URINE COLOR Yellow; URINE GLUCOSE (UA) Negative (NEGATIVE); URINE KETONE Negative (NEGATIVE); URINE LEUK ESTERASE Negative (NEGATIVE); URINE NITRITE Negative (NEGATIVE); URINE PROTEIN Negative (NEGATIVE); URINE UROBILINOGEN 0.2 mg/dL (0.2-1.0)
[2019-04-23] MEDS: PANTOPRAZOLE 20 MG TABLET (FP) PO SCH (14:18)
--- NOTE | 2019-04-23 19:43 | PN ---
Teaching Attending Note Name of Resident: Vicky Kohli ATTENDING PHYSICIAN STATEMENT I saw and evaluated the patient. I reviewed the resident's note and discussed the case with the resident. I agree with the resident's findings and plan as documented. SUBJECTIVE: Patient is an 83yo male with PMHx of CAD s/p CABG , CHF, aortic stenosis, pacemaker( was interogated 2 weeks ago) , HTN, HL, R inguinal sarcoma s/p resection 2 years ago, anemia presented to the ED after complaints of Left sided facial numbness, slurred speech, drooling, and LUE numbness that started at approximately 8am this morning. Patient is on Plavix and aspirin at home for Cabg x 2. sees Dr. Wynn as an outpatient , his last visit was 2 weeks ago. OBJECTIVE: Vital Signs Temperature 98.3 F 04/23/19 17:00 Pulse Rate 68 04/23/19 18:58 Respiratory Rate 18 04/23/19 17:00 Blood Pressure 121/75 04/23/19 18:58 O2 Sat by Pulse Oximetry (%) 96 04/23/19 18:58 GENERALly: comfortable with NAD, AAOx3. HEENT: AT/NC. EOMI. Dry mucus membranes. ROCCO. Lungs: CTA B/L. No wheezes, rhonchi, rales noted. Symmetric chest rise. Heart: RRR. Normal S1, S2. No murmurs, rubs or gallop noted. No reproducible chest tenderness. Abdomen: Soft, NT/ND. Normoactive bowel sounds noted. No masses noted. Ext: No peripheral edema. Neuro: Facial symmetry noted. Normal speech. Follows all commands. CN II-XII intact. gait not observed MSK: muscle strenght 5/5 Extremeties: pulses are positive, no C/C/E CBCD WBC 6.7 K/mm3 (4.0-10.0) 04/23/19 09:15 RBC 3.91 M/mm3 (4.00-5.60) L 04/23/19 09:15 Hgb 12.1 GM/dL (11.7-16.9) 04/23/19 09:15 Hct 35.8 % (35.4-49) 04/23/19 09:15 MCV 91.7 fl (80-96) 04/23/19 09:15 MCHC 33.8 g/dl (32.0-35.9) 04/23/19 09:15 RDW 14.9 % (11.9-15.9) 04/23/19 09:15 Plt Count 208 K/MM3 (134-434) 04/23/19 09:15 MPV 8.3 fl (7.5-11.1) 04/23/19 09:15 CMP Sodium 140 mmol/L (136-145) 04/23/19 09:15 Potassium 5.0 mmol/L (3.5-5.1) 04/23/19 09:15 Chloride 109 mmol/L (98-107) H 04/23/19 09:15 Carbon Dioxide 24 mmol/L (21-32) 04/23/19 09:15 Anion Gap 8 MMOL/L (8-16) 04/23/19 09:15 BUN 30.8 mg/dL (7-18) H 04/23/19 09:15 Creatinine 1.3 mg/dL (0.55-1.3) 04/23/19 09:15 Random Glucose 107 mg/dL (74-106) H 04/23/19 09:15 Calcium 8.9 mg/dL (8.5-10.1) 04/23/19 09:15 Total Bilirubin 0.6 mg/dL (0.2-1) 04/23/19 09:15 AST 27 U/L (15-37) 04/23/19 09:15 ALT 27 U/L (13-61) 04/23/19 09:15 Alkaline Phosphatase 83 U/L (45-117) 04/23/19 09:15 Total Protein 7.0 g/dl (6.4-8.2) 04/23/19 09:15 Albumin 3.6 g/dl (3.4-5.0) 04/23/19 09:15 CARDIAC ENZYMES Creatine Kinase 45 U/L (26-308) 04/23/19 09:15 Troponin I < 0.02 ng/ml (0.00-0.05) 04/23/19 09:15 Current Medications Generic Name Dose Route Start Last Admin Trade Name Freq PRN Reason Stop Dose Admin Aspirin 81 mg 04/23/19 13:00 04/23/19 13:21 Asa - PO Not Given DAILY [facility] Clopidogrel Bisulfate 75 mg 04/23/19 13:00 04/23/19 13:22 Plavix - PO Not Given DAILY [facility] Folic Acid 1 mg 04/23/19 13:00 04/23/19 13:22 Folic Acid - PO Not Given DAILY [facility] Heparin Sodium (Porcine) 5,000 unit 04/23/19 22:00 Heparin - SQ TID [facility] Insulin Aspart 1 vial 04/23/19 22:00 Novolog Vial Sliding Scale - SQ ACHS [facility] Protocol Latanoprost 1 drop 04/23/19 22:00 Xalatan 0.005% Eye Drops - OU HS [facility] Metoprolol Succinate 25 mg 04/23/19 13:00 04/23/19 13:22 Toprol Xl - PO Not Given DAILY [facility] Pantoprazole Sodium 20 mg 04/23/19 13:00 04/23/19 14:18 Protonix - PO 20 mg DAILY [facility] Administration Tamsulosin HCl 0.4 mg 04/23/19 22:00 Flomax - PO HS [facility] Thyroid 90 mg 04/23/19 13:00 04/23/19 13:21 [place] Thyroid - PO Not Given DAILY [facility] Valsartan 40 mg 04/23/19 13:00 04/23/19 13:21 Diovan - PO Not Given DAILY [facility] Home Medications Medication Instructions Recorded Aspirin [ASA -] 81 mg PO DAILY 10/31/15 Clopidogrel Bisulfate [Clopidogrel] 75 mg PO DAILY 10/31/15 Folic Acid 1 mg PO DAILY 10/31/15 Metoprolol Succinate [Toprol XL -] 25 mg PO DAILY 10/31/15 Omeprazole 20 mg PO DAILY 10/31/15 Tamsulosin HCl 0.4 mg PO HS 10/31/15 Thyroid,Pork [[place] Thyroid] 90 mg PO DAILY 10/31/15 Travoprost [Travatan Z] 1 drop OU DAILY 10/31/15 Metformin HCl [Glucophage] 500 mg PO BID 04/23/19 Pantoprazole Sodium [Protonix -] 20 mg PO DAILY 04/23/19 Valsartan [Diovan] 40 mg PO DAILY 04/23/[address]: No significant interval change or acute IC pathology identified. There remains volume loss, ventricular dilatation and mild periventricular chronic microvascular ischemic disease changes. ASSESSMENT/PLAN: 83M w/ pmhx of CAD s/p CABG x2 on aspirin and plavix , CHF, aortic stenosis, pacemaker, HTN, HLD, R inguinal sarcoma s/p resection 2 years ago, anemia presented to the ED after complaints of L sided facial numbness, slurred speech , drooling, and LUE numbness found to have a TIA, placed in observation to r/o CVA. #Acute TIA r/o CVA Resolved . Neuro consult appreciated , neuro check q1h, ekg in am , on the monitor , Lipitor 40mg , lipid panel. #CAD s/p CABG; Cont home meds: ASA 81, Plavix 75 QD #Hx with PMM, cardio consult with Dr. Monson , recent interogation x 2 weeks ago with no abnormal findings as per patient. #HTN/HLD; Cont home meds: Valsartan 40 QD, Toprol XL 25 QD, #NIDDM; Hold all oral DM meds. BGM/ISS ACHS. #Glaucoma; Cont home meds: Travoprost 1 drop OU QD #DVT Px: SCDs, Lovenox tele obs
[2019-04-23] MEDS: TAMSULOSIN HCL 0.4 MG CAP PO SCH (22:27)
[2019-04-23] MEDS: INSULIN SLIDING SCALE (NOVOLOG) 1 VIAL SQ SCH (22:27)
[2019-04-23] MEDS: LATANOPROST 0.005% OPHTH SOLN 2.5ML BOTTLE OU SCH (22:27)
[2019-04-23] MEDS: HEPARIN NA (PORCINE) 5,000 UNITS/ML 1ML VIAL SQ SCH (22:27)
[2019-04-24] MEDS: INSULIN SLIDING SCALE (NOVOLOG) 1 VIAL SQ SCH ×4 (06:01→21:55)
[2019-04-24] MEDS: HEPARIN NA (PORCINE) 5,000 UNITS/ML 1ML VIAL SQ SCH ×3 (06:31→21:55)
[2019-04-24 07:36] LABS: HEMATOCRIT 39.2 % (35.4-49); HEMOGLOBIN 13.2 GM/dL (11.7-16.9); MCH 30.9 pg (25.7-33.7); MCHC 33.7 g/dl (32.0-35.9); MEAN CELL VOLUME 91.8 fl (80-96); MEAN PLT VOLUME 8.4 fl (7.5-11.1); PLATELET COUNT 213 K/MM3 (134-434); RBC 4.27 M/mm3 (4.00-5.60); RDW 14.8 % (11.9-15.9); WHITE BLOOD COUNT 6.4 K/mm3 (4.0-10.0)
[2019-04-24 07:56] LABS: ALBUMIN 3.7 g/dl (3.4-5.0); BILIRUBIN,TOTAL 0.7 mg/dL (0.2-1); BLOOD UREA NITROGEN 27.4 mg/dL (7-18); CALCIUM 9.2 mg/dL (8.5-10.1); CREATININE 1.1 mg/dL (0.55-1.3); MAGNESIUM 2.3 mg/dL (1.8-2.4); POTASSIUM 4.3 mmol/L (3.5-5.1); TOT PROT 7.2 g/dl (6.4-8.2)
--- NOTE | 2019-04-24 09:03 | CON.CARD ---
Consult Consult Specialty:: Cardiology [facility] Reason for Consultation:: TIA - History of Present Illness Chief Complaint: Left facial numbness, dysarthira, LE numbness History of Present Illness: Patient is an 83 year old male well known to our service (sees Dr. Hanna Monson) with underlying history of coronary artery disease, s/p CABG, reop, systolic/diastolic LV dysfunction with chronic 0-1 NYHA classification LV failure, aortic valve stenosis, AV block post PPM ([employer]) hypertension, hypercholesterolemia, history of sarcoma (right inguinal) post resection and anemia last seen in office 04/11/2019. He presents with episode of left facial numbness, slurred speech, drooling, LUE numbness since resolved by time of ED arrival. He is awake and alert at this time. He denies chest pain, shortness of breath or palpitations. He denies paroxysmal nocturnal dyspnea or orthopnea. He denies fever or chills. He denies headache or lightheadedness. He denies nausea , vomiting, diarrhea or abdominal pain. 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 - Past Surgical History Past Surgical History: Yes: CABG, Permanent Pacemaker - Alcohol/Substance Use Hx Alcohol Use: No History of Substance Use: reports: None - Smoking History Smoking history: Never smoked Have you smoked in the past 12 months: No Aproximately how many cigarettes per day: 0 - Social History Usual Living Arrangement: With Spouse ADL: Independent History of Recent Travel: No Home Medications - Allergies Allergies/Adverse Reactions: Allergies Allergy/AdvReac Type Severity Reaction Status Date / Time Penicillins Allergy Verified 04/23/19 08:59 - Home Medications Home Medications: Ambulatory Orders Aspirin [ASA -] 81 mg PO DAILY 10/31/15 Clopidogrel Bisulfate [Clopidogrel] 75 mg PO DAILY 10/31/15 Folic Acid 1 mg PO DAILY 10/31/15 Metoprolol Succinate [Toprol XL -] 25 mg PO DAILY 10/31/15 Omeprazole 20 mg PO DAILY 10/31/15 Tamsulosin HCl 0.4 mg PO HS 10/31/15 Thyroid,Pork [[place] Thyroid] 90 mg PO DAILY 10/31/15 Travoprost [Travatan Z] 1 drop OU DAILY 10/31/15 Metformin HCl [Glucophage] 500 mg PO BID 04/23/19 Pantoprazole Sodium [Protonix -] 20 mg PO DAILY 04/23/19 Valsartan [Diovan] 40 mg PO DAILY 04/23/19 Review of Systems - Review of Systems Neurological: reports: Change in Speech, Numbness, Parasthesia Vital Signs: Vital Signs Temperature 97.9 F 04/24/19 06:00 Pulse Rate 73 04/24/19 06:00 Respiratory Rate 18 04/24/19 06:00 Blood Pressure 129/73 04/24/19 06:00 O2 Sat by Pulse Oximetry (%) 97 04/24/19 04:00 Constitutional: Yes: No Distress, Calm Neck: Yes: Supple Respiratory: Yes: Regular, CTA Bilaterally Gastrointestinal: Yes: Normal Bowel Sounds, Soft Cardiovascular: Yes: Regular Rate and Rhythm JVD: No Carotid Bruit: No Heart Sounds: Yes: S1, S2 Murmur: Yes: Systolic Murmur, Grade 2 Edema: No - Other Data Labs, Other Data: CBC, BMP 04/24/19 06:00 04/24/19 06:00 INR, PTT INR 1.12 (0.83-1.09) H 04/23/19 09:15 Troponin, BNP 04/23/19 09:15 Troponin I < 0.02 Troponin, BNP 04/23/19 09:15 Troponin I < 0.02 A-paced @ 85 with PVC Ejection Fraction %: LVEF > or = 40 % Imaging - Results Cat Scan: Report Reviewed (HCT: No acute changes) Ultrasound: Report Reviewed (carotid US: No sig stenosis) Problem List - Problems (1) Transient ischemic attack Code(s): G45.9 - TRANSIENT CEREBRAL ISCHEMIC ATTACK, UNSPECIFIED (2) AV block, complete Code(s): I44.2 - ATRIOVENTRICULAR BLOCK, COMPLETE (3) Aortic stenosis Code(s): I35.0 - NONRHEUMATIC AORTIC (VALVE) STENOSIS Qualifiers: Cardiac valve disease etiology: nonrheumatic Qualified Code(s): I35.0 - Nonrheumatic aortic (valve) stenosis (4) History of cardiac pacemaker Code(s): Z95.0 - PRESENCE OF CARDIAC PACEMAKER (5) History of myocardial infarction Code(s): I25.2 - OLD MYOCARDIAL INFARCTION (6) Hx of CABG Code(s): Z95.1 - PRESENCE OF AORTOCORONARY BYPASS GRAFT (7) Hyperlipidemia Code(s): E78.5 - HYPERLIPIDEMIA, UNSPECIFIED Qualifiers: Hyperlipidemia type: pure hypercholesterolemia Qualified Code(s): E78.00 - Pure hypercholesterolemia, unspecified; E78.0 - Pure hypercholesterolemia (8) Hypertensive heart disease Code(s): I11.9 - HYPERTENSIVE HEART DISEASE WITHOUT HEART FAILURE Qualifiers: Heart failure presence: without heart failure Qualified Code(s): I11.9 - Hypertensive heart disease without heart failure (9) Hypothyroidism Code(s): E03.9 - HYPOTHYROIDISM, UNSPECIFIED Qualifiers: Hypothyroidism type: unspecified Qualified Code(s): E03.9 - Hypothyroidism , unspecified (10) Thoracic ascending aortic aneurysm Code(s): I71.2 - THORACIC AORTIC ANEURYSM, WITHOUT RUPTURE (11) Systolic dysfunction without heart failure Code(s): I51.89 - OTHER ILL-DEFINED HEART DISEASES Assessment/Plan 12/25/2018 LHC: Normal LM, 100% prox LAD, LAD-De 100%, LCx-OM 100%, mid LCx 50% , prox RCA 100%, patent CORTEZ->LAD with small distal vessel, patent free ROSA-> dRCA, SVG->LCx occluded from initial surgery, SVG-OM1 patent, SVG->OM2 patent, SVG->LAD-D2 closed culprit for acute event 12/26/2018 Echo: Normal LV size with moderate reduction LVEF 40%, severe dilatation of RV with reduced systolic fxn, mod MG 16 mmHg, mod TR, GURVINDER 1. TIA 2. CAD s/p CABG (reop), angina pectoris 3. Systolic/diastolic LV dysfunction class 0-1 NYHA classification LV failure, currently euvolemic/compensated 4. Aortic valve stenosis 5. HTN/HCVD 6. Hypercholesterolemia 7. AV block post PPM 8. Tricuspid valve regurgitation and pulmonary HTN 9. Carotid stenosis 10. Thoracic aortic aneurysm (ascending 4.0 cm) 11. CKD 12. History of right inguinal liposarcoma post resection 13. Anemia PLAN: 1. Interrogate pacemaker to assess for PAF, monitor on telemetry 2. Continue Toprol XL 50 qd and Diovan 40 qd as tolerated 3. Continue Lipitor 80 qd, ASA 81 qd and Plavix 75 qd 4. S&S evaluation appreciated 5. Eventual f/u with Dr. Monson in office 6. Thank you for consultative opportunity
[2019-04-24] MEDS: PANTOPRAZOLE 20 MG TABLET (FP) PO SCH (09:21)
[2019-04-24] MEDS: VALSARTAN 40 MG TABLET (FP) PO SCH (09:21)
[2019-04-24] MEDS: CLOPIDOGREL BISULFATE 75 MG TABLET (FP) PO SCH (09:21)
[2019-04-24] MEDS: FOLIC ACID 1 MG TABLET (FP) PO SCH (09:21)
[2019-04-24] MEDS: ASPIRIN 81 MG CHEWABLE TABLETS PO SCH (09:21)
[2019-04-24] MEDS: metoPROLOL SUCCINATE 25 MG TAB.SR.24H (FP) PO SCH (09:21)
[2019-04-24] MEDS ORDERED: PT OWN MED DRAWER 7, Y5N ONE (09:29)
[2019-04-24] MEDS: THYROID 60 MG TABLET PO SCH (09:30)
--- NOTE | 2019-04-24 10:39 | EKG ---
Test Reason : Blood Pressure : / mmHG Vent. Rate : 085 BPM Atrial Rate : 234 BPM P-R Int : 166 ms QRS Dur : 088 ms QT Int : 382 ms P-R-T Axes : 060 005 058 degrees QTc Int : 454 ms Atrial-paced rhythm WITH PREMATURE VENTRICULAR OR ABERRANTLY CONDUCTED COMPLEXES LOW VOLTAGE QRS INFERIOR INFARCT (CITED ON OR BEFORE 27-JUN-2012) CANNOT RULE OUT ANTERIOR INFARCT (CITED ON OR BEFORE 31-OCT-2015) ABNORMAL ECG WHEN COMPARED WITH ECG OF 23-APR-2019 09:17, PREMATURE VENTRICULAR COMPLEXES ARE NOW SEEN Confirmed by SALINA KANG MD [id number]) on 04/24/2019 10:38:43 AM Referred By: MRO PIMENTEL Confirmed By:SALINA KANG MD
--- NOTE | 2019-04-24 11:01 | CONSULT ---
Admitting History and Physical - Primary Care Physician PCP: Hernando Leonard - Admission History of Present Illness: 83M w/ pmhx of CAD s/p CABG x2 on aspirin and plavix , CHF, aortic stenosis, pacemaker, HTN, HLD, R inguinal sarcoma s/p resection 2 years ago, anemia presented to the ED after complaints of L sided facial numbness, slurred speech , drooling, and LUE numbness found to have a TIA, placed in observation to r/o CVA. Selected Entries 04/24/19 04/24/19 04/24/19 01:00 02:00 06:00 Breakfast Temperature 97.8 F 98.1 F 97.9 F 04/24/19 10:11 Breakfast 100% Temperature Laboratory Tests 04/24/19 06:00 WBC 6.4 History Source: Patient, Family Member Limitations to Obtaining History: No Limitations - Past Medical History Cardiovascular: Yes: Aneurysm (TAA (ascending)), Aortic Stenosis, CAD, CHF, HTN , Hyperlipdemia, VA, Mitral Insufficiency, Other (pacemaker) Renal/: Yes: BPH Heme/Onc: Yes: Anemia Endocrine: Yes: Hypothyroidism - Past Surgical History Past Surgical History: Yes: CABG, Permanent Pacemaker - Smoking History Smoking history: Never smoked Have you smoked in the past 12 months: No Aproximately how many cigarettes per day: 0 - Alcohol/Substance Use Hx Alcohol Use: No History of Substance Use: reports: None - Social History ADL: Independent History of Recent Travel: No History - Admission Reason For Visit: TRANSIENT ISCHEMIC ATTACK - Diagnostics X-ray: Report Reviewed CT Scan: Report Reviewed (Head CT: No significant interval change or acute IC pathology identified. There remains volume loss, ventricular dilatation and mild periventricular chronic microvascular ischemic disease changes.) - General Mental Status: Alert and Oriented, Awake and Alert, Able to Follow Commands Attention: Intact Ability to Follow Directions: Excellent Head/Neck Control: WFL - Hearing Hearing: Functional Hearing: Normal Speech Evaluation - Communication Primary Language: GREEK Communication: Yes: Within Normal Limits Oral Expression Ability: Yes: No Impairment - Speech Production Able to Make Needs Known: Yes: WNL Intelligibility: Yes: WNL - Speech Characteristics Voice Loudness: Normal Voice Pitch: Yes: Normal Voice Phonatory-based Quality: Yes: Normal Speech Pattern: Normal Speech Clarity: < 100% Nasal Resonance: Normal Articulation: Yes: Precise - Language/Auditory Comprehension Follows: Yes: 2 Stage Simple Commands - Language/Verbal Expression Able to Respond to Simple Queries: Yes: WNL Able to Communicate Wants and Needs: Yes: WNL Functional Communication Status: Yes: WNL - 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 Memory: Yes: WNL Short Term Memory: Yes: WNL - Swallow Evaluation/Bedside Assessment Current Nutritional Intake: Regular, Thin Liquids Oral Secretions: Yes: WFL Dentition: Yes: Adequate Facial Symmetry at Rest: Symmetrical Facial Symmetry on Retraction: Symmetrical Facial Movement: Controlled Sensation: Normal Against Resistance Opening: Normal Against Resistance Closing: Normal Pucker Lips: Normal Smile: Normal Lingual Movement: Normal, Symmetric Lingual Speed of Movement: Normal Lingual Movement Strgth Against Opposition: Normal Lingual Movement Characteristics: Normal Velopharyngeal Movement: Normal Laryngeal Elevation: WFL Laryngeal Movement: Able to Palpate Rate of Intake: WFL Bolus Size: WFL Labial Seal: WFL Chewing: WFL Oral Prep Time: WFL A-P Transit: WFL Pocketing: None Timing of Swallow: WFL Coughing/Throat Clear: No Change in Voice: No Recommendations - Speech Evaluation, Impression/Plan Impression: Speech, language, cognition, swallowing intact. Persistent tingling as new symptom in left hand. Reports mild headache.
--- NOTE | 2019-04-24 15:43 | PN ---
Physical Exam: SUBJECTIVE: Patient seen and examined by the bedside, AOx3 OBJECTIVE: Vital Signs Period Temp Pulse Resp BP Sys/Stewart Pulse Ox Last 24 Hr 97.4 F-98.3 F 68-88 18-20 120-164/67-87 96-98 GENERAL: The patient is awake, alert, and fully oriented, in no acute distress. HEAD: Normal with no signs of trauma. EYES: PERRL, extraocular movements intact, sclera anicteric, conjunctiva clear. No ptosis. ENT: Ears normal, nares patent, oropharynx clear without exudates, moist mucous membranes. NECK: Trachea midline, full range of motion, supple. LUNGS: Breath sounds equal, clear to auscultation bilaterally, no wheezes, no crackles, no accessory muscle use. HEART: Irregular rhythm, systolic murmur along RSB ABDOMEN: Soft, nontender, nondistended, normoactive bowel sounds, no guarding, no rebound, no hepatosplenomegaly, no masses. EXTREMITIES: 2+ pulses, warm, well-perfused, no edema. NEUROLOGICAL: No facial asymmetry, no hand drift, no slurring,motor strength 5/ 5 BL in upper as well as lower extremeties, no sensory defects. Cranial nerves II through XII grossly intact. Normal speech, gait not observed. PSYCH: Normal mood, normal affect. SKIN: Warm, dry, normal turgor, no rashes or lesions noted Laboratory Results - last 24 hr 04/23/19 04/24/19 04/24/19 22:25 00:14 05:38 WBC RBC Hgb Hct MCV MCH MCHC RDW Plt Count MPV PTT (Actin FS) Sodium Potassium Chloride Carbon Dioxide Anion Gap BUN Creatinine Est GFR (CKD-EPI)AfAm Est GFR (CKD-EPI)NonAf POC Glucometer 103 106 101 Random Glucose Calcium Magnesium Total Bilirubin AST ALT Alkaline Phosphatase Total Protein Albumin Triglycerides Cholesterol Total LDL Cholesterol HDL Cholesterol 04/24/19 04/24/19 04/24/19 06:00 06:00 06:00 WBC 6.4 RBC 4.27 Hgb 13.2 Hct 39.2 MCV 91.8 MCH 30.9 MCHC 33.7 RDW 14.8 Plt Count 213 MPV 8.4 PTT (Actin FS) 31.0 Sodium 143 Potassium 4.3 Chloride 110 H Carbon Dioxide 25 Anion Gap 7 L BUN 27.4 H Creatinine 1.1 Est GFR (CKD-EPI)AfAm 71.07 Est GFR (CKD-EPI)NonAf 61.32 POC Glucometer Random Glucose 103 Calcium 9.2 Magnesium 2.3 Total Bilirubin 0.7 AST 19 ALT 24 Alkaline Phosphatase 75 Total Protein 7.2 Albumin 3.7 Triglycerides 98 Cholesterol 155 Total LDL Cholesterol 86 HDL Cholesterol 56 04/24/19 12:09 WBC RBC Hgb Hct MCV MCH MCHC RDW Plt Count MPV PTT (Actin FS) Sodium Potassium Chloride Carbon Dioxide Anion Gap BUN Creatinine Est GFR (CKD-EPI)AfAm Est GFR (CKD-EPI)NonAf POC Glucometer 95 Random Glucose Calcium Magnesium Total Bilirubin AST ALT Alkaline Phosphatase Total Protein Albumin Triglycerides Cholesterol Total LDL Cholesterol HDL Cholesterol Active Medications Generic Name Dose Route Start Last Admin Trade Name Freq PRN Reason Stop Dose Admin Aspirin 81 mg 04/23/19 13:00 04/24/19 09:21 Asa - PO 81 mg DAILY WAYNE Administration Clopidogrel Bisulfate 75 mg 04/23/19 13:00 04/24/19 09:21 Plavix - PO 75 mg DAILY WAYNE Administration Folic Acid 1 mg 04/23/19 13:00 04/24/19 09:21 Folic Acid - PO 1 mg DAILY WAYNE Administration Heparin Sodium (Porcine) 5,000 unit 04/23/19 22:00 04/24/19 14:39 Heparin - SQ 5,000 unit TID WAYNE Administration Insulin Aspart 1 vial 04/23/19 22:00 04/24/19 12:31 Novolog Vial Sliding Scale - SQ Not Given ACHS [facility] Protocol Latanoprost 1 drop 04/23/19 22:00 04/23/19 22:27 Xalatan 0.005% Eye Drops - OU 1 drop HS WAYNE Administration Metoprolol Succinate 25 mg 04/23/19 13:00 04/24/19 09:21 Toprol Xl - PO 25 mg DAILY WAYNE Administration Pantoprazole Sodium 20 mg 04/23/19 13:00 04/24/19 09:21 Protonix - PO 20 mg DAILY WAYNE Administration Tamsulosin HCl 0.4 mg 04/23/19 22:00 04/23/19 22:27 Flomax - PO 0.4 mg HS WAYNE Administration Thyroid 90 mg 04/23/19 13:00 04/24/19 09:30 [place] Thyroid - PO 90 mg DAILY WAYNE Administration Valsartan 40 mg 04/23/19 13:00 04/24/19 09:21 Diovan - PO 40 mg DAILY WAYNE Administration ASSESSMENT/PLAN: 83M with PMH significant for HTN, HLD, CAD, CHF, , pacemaker, R inguinal sarcoma, anemia presented to the ER after complaints of L sided facial numbness , slurred speech, drooling, and LUE numbness and tingling that started a few hours before presentation. #TIA (Resolved) - Neuro consult (Dr. Valentino): not a candidate for tPA. Homocysteine level ordered - Lipitor 40mg - CT Head: Negative - Carotid duplex: Plaques in RCC and LCC, no HD significant stenosis, flow in both vertebral arteries - EKG: atrial-paced rhythm with prolonged AV conduction, QTc 436, HR 70 - Speech eval/Neuro check Q1H/PT/Fall risk precautions/Stroke dysphagia screen #Hx of CAD s/p CABG - Continue ASA 81mg, Plavix 75mg #Hx of Aortic Stenosis - Cardio consulted (Dr. Bronson): No further cardiac intervention, continue Metoprolol, ASA, Plavix, Lipitor - Dr. Monson: PPM interrogated 2 weeks ago, no abnormal findings. Will consider KEYLA #Hx of HTN - Valsartan 40mg, Metoprolol 25mg #Hx of HLD - Lipitor #Hx of NIDDM - Hold all oral DM meds. BGM/ISS ACHS. #Hx of Glaucoma - Cont home meds: Travoprost 1 drop OU QD #DVT PE - SCDs - Lovenox 40mg FEN -no IVf - Follow electrolytes -diabetic diet if pt passes bedside swallow eval Dispo -admit to tele obs Visit type - Emergency Visit Emergency Visit: Yes ED Registration Date: 04/23/19 Care time: The patient presented to the Emergency Department on the above date and was hospitalized for further evaluation of their emergent condition. - New Patient This patient is new to me today: Yes Date on this admission: 04/24/19 - Critical Care Critical Care patient: No - Discharge Referral Referred to [facility] No ATTENDING PHYSICIAN STATEMENT I saw and evaluated the patient. I reviewed the resident's note and discussed the case with the resident. I agree with the resident's findings and plan as documented. SUBJECTIVE: OBJECTIVE: ASSESSMENT AND PLAN:
--- NOTE | 2019-04-24 18:44 | PN ---
Teaching Attending Note Name of Resident: Warren Phillips ATTENDING PHYSICIAN STATEMENT I saw and evaluated the patient. I reviewed the resident's note and discussed the case with the resident. I agree with the resident's findings and plan as documented. SUBJECTIVE: Patient has no complaints. OBJECTIVE: Vital Signs Period Temp Pulse Resp BP Sys/Stewart Pulse Ox Last 24 Hr 97.4 F-98.1 F 68-88 18-20 120-164/67-87 96-99 HEART: S1S2, RRR LUNGS: Clear ABDOMEN: Soft, non-tender, non-distended, normal BS EXTREMITIES: No edema NEUROLOGICAL: Alert, oriented, non-focal Laboratory Results - last 24 hr 04/23/19 04/24/19 04/24/19 22:25 00:14 05:38 WBC RBC Hgb Hct MCV MCH MCHC RDW Plt Count MPV PTT (Actin FS) Sodium Potassium Chloride Carbon Dioxide Anion Gap BUN Creatinine Est GFR (CKD-EPI)AfAm Est GFR (CKD-EPI)NonAf POC Glucometer 103 106 101 Random Glucose Calcium Magnesium Total Bilirubin AST ALT Alkaline Phosphatase Total Protein Albumin Triglycerides Cholesterol Total LDL Cholesterol HDL Cholesterol 04/24/19 04/24/19 04/24/19 06:00 06:00 06:00 WBC 6.4 RBC 4.27 Hgb 13.2 Hct 39.2 MCV 91.8 MCH 30.9 MCHC 33.7 RDW 14.8 Plt Count 213 MPV 8.4 PTT (Actin FS) 31.0 Sodium 143 Potassium 4.3 Chloride 110 H Carbon Dioxide 25 Anion Gap 7 L BUN 27.4 H Creatinine 1.1 Est GFR (CKD-EPI)AfAm 71.07 Est GFR (CKD-EPI)NonAf 61.32 POC Glucometer Random Glucose 103 Calcium 9.2 Magnesium 2.3 Total Bilirubin 0.7 AST 19 ALT 24 Alkaline Phosphatase 75 Total Protein 7.2 Albumin 3.7 Triglycerides 98 Cholesterol 155 Total LDL Cholesterol 86 HDL Cholesterol 56 04/24/19 04/24/19 12:09 17:21 WBC RBC Hgb Hct MCV MCH MCHC RDW Plt Count MPV PTT (Actin FS) Sodium Potassium Chloride Carbon Dioxide Anion Gap BUN Creatinine Est GFR (CKD-EPI)AfAm Est GFR (CKD-EPI)NonAf POC Glucometer 95 104 Random Glucose Calcium Magnesium Total Bilirubin AST ALT Alkaline Phosphatase Total Protein Albumin Triglycerides Cholesterol Total LDL Cholesterol HDL Cholesterol Current Medications Generic Name Dose Route Start Last Admin Trade Name Shannon PRN Reason Stop Dose Admin Aspirin 81 mg 04/23/19 13:00 04/24/19 09:21 Asa - PO 81 mg DAILY WAYNE Administration Atorvastatin Calcium 40 mg 04/24/19 22:00 Lipitor - PO HS WAYNE Clopidogrel Bisulfate 75 mg 04/23/19 13:00 04/24/19 09:21 Plavix - PO 75 mg DAILY WAYNE Administration Folic Acid 1 mg 04/23/19 13:00 04/24/19 09:21 Folic Acid - PO 1 mg DAILY WAYNE Administration Heparin Sodium (Porcine) 5,000 unit 04/23/19 22:00 04/24/19 14:39 Heparin - SQ 5,000 unit TID WAYNE Administration Insulin Aspart 1 vial 04/23/19 22:00 04/24/19 18:07 Novolog Vial Sliding Scale - SQ Not Given ACHS [facility] Protocol Latanoprost 1 drop 04/23/19 22:00 04/23/19 22:27 Xalatan 0.005% Eye Drops - OU 1 drop HS WAYNE Administration Metoprolol Succinate 25 mg 04/23/19 13:00 04/24/19 09:21 Toprol Xl - PO 25 mg DAILY WAYNE Administration Pantoprazole Sodium 20 mg 04/23/19 13:00 04/24/19 09:21 Protonix - PO 20 mg DAILY WAYNE Administration Tamsulosin HCl 0.4 mg 04/23/19 22:00 04/23/19 22:27 Flomax - PO 0.4 mg HS WAYNE Administration Thyroid 90 mg 04/23/19 13:00 04/24/19 09:[address] Thyroid - PO 90 mg DAILY WAYNE Administration Valsartan 40 mg 04/23/19 13:00 04/24/19 09:21 Diovan - PO 40 mg DAILY WAYNE Administration ASSESSMENT AND PLAN: This is an 83 year old man with a history of HTN, hyperlipidemia, CAD, CABG, chronic systolic and diastolic heart failure, , pacemaker, hypothyroidism, right inguinal sarcoma, anemia who presented to the ED with left sided facial numbness, slurred speech, drooling, and LUE numbness and tingling. 1. TIA - Continue aspirin, Plavix, Lipitor - Continue monitoring for atrial fib 2. CAD, history of CABG - Continue aspirin, Plavix, Toprol XL, Lipitor 3. Aortic stenosis 4. HTN - Continue Diovan, Toprol XL 5. Hyperlipidemia - Continue Lipitor 6. Type 2 DM - Continue Novolog sliding scale 7. Chronic systolic and diastolic heart failure - Stable 8. Hypothyroidism - Continue [address] thyroid 9. Glaucoma - Continue Xalatan 10. Thoracic aortic aneurysm 11. History of AV block - Has pacemaker
[2019-04-24] MEDS: TAMSULOSIN HCL 0.4 MG CAP PO SCH (21:55)
[2019-04-24] MEDS: ATORVASTATIN CA 40 MG TABLET (FP) PO SCH (21:55)
[2019-04-24] MEDS: LATANOPROST 0.005% OPHTH SOLN 2.5ML BOTTLE OU SCH (21:57)
[2019-04-25] MEDS: HEPARIN NA (PORCINE) 5,000 UNITS/ML 1ML VIAL SQ SCH ×3 (05:42→21:29)
[2019-04-25] MEDS: INSULIN SLIDING SCALE (NOVOLOG) 1 VIAL SQ SCH ×4 (06:05→21:29)
[2019-04-25 07:03] LABS: HEMATOCRIT 39.2 % (35.4-49); HEMOGLOBIN 13.3 GM/dL (11.7-16.9); MCH 31.1 pg (25.7-33.7); MCHC 33.9 g/dl (32.0-35.9); MEAN CELL VOLUME 91.7 fl (80-96); MEAN PLT VOLUME 8.4 fl (7.5-11.1); PLATELET COUNT 232 K/MM3 (134-434); RBC 4.28 M/mm3 (4.00-5.60); RDW 14.8 % (11.9-15.9)
[2019-04-25 07:40] LABS: BLOOD UREA NITROGEN 25.4 mg/dL (7-18); CALCIUM 9.2 mg/dL (8.5-10.1); CREATININE 1.2 mg/dL (0.55-1.3); POTASSIUM 4.8 mmol/L (3.5-5.1)
[2019-04-25] MEDS: THYROID 60 MG TABLET PO SCH (09:22)
[2019-04-25] MEDS: FOLIC ACID 1 MG TABLET (FP) PO SCH (09:22)
[2019-04-25] MEDS: metoPROLOL SUCCINATE 25 MG TAB.SR.24H (FP) PO SCH (09:22)
[2019-04-25] MEDS: CLOPIDOGREL BISULFATE 75 MG TABLET (FP) PO SCH (09:22)
[2019-04-25] MEDS: PANTOPRAZOLE 20 MG TABLET (FP) PO SCH (09:22)
[2019-04-25] MEDS: ASPIRIN 81 MG CHEWABLE TABLETS PO SCH (09:22)
[2019-04-25] MEDS: VALSARTAN 40 MG TABLET (FP) PO SCH (09:22)
--- NOTE | 2019-04-25 09:48 | PN ---
Progress Note (short form) - Note Progress Note: Chief Complaint: Events noted, notes reviewed, reports persistent left hand parasthesia although clinically improved, denies any slurred speech, sinus rhythm is noted, denies any chest pain or dyspnea History of Present Illness: Seen and examined on telemetry. Events noted, notes reviewed, reports persistent left hand parasthesia although clinically improved, denies any slurred speech, sinus rhythm is noted, denies any chest pain or dyspnea Pacemaker interrogation note no PAF noted/no mode switches Carotid Doppler study noted 12/25/2018 LHC: normal LM, 100% prox LAD, LAD-D1 100%, LCx-OM 100%, mid LCx 50% , prox RCA 100%, patent CORTEZ->LAD with small distal vessel, patent free ROSA-> distal RCA, SVG->LCx occluded from initial surgery, SVG-OM1 patent, SVG->OM2 patent, SVG->LAD-D2 closed culprit for acute event 12/26/2018 Echocardiography revealed normal LV size with moderate reduction in LVEF 40%, severe dilatation of RV with reduced systolic function, moderate MG 16 mmHg, moderate TR Medications: Current Medications Aspirin (Asa -) 81 mg PO DAILY [facility] Last Admin: 04/25/19 09:22 Dose: 81 mg Atorvastatin Calcium (Lipitor -) 40 mg PO HS [facility] Last Admin: 04/24/19 21:55 Dose: 40 mg Clopidogrel Bisulfate (Plavix -) 75 mg PO DAILY [facility] Last Admin: 04/25/19 09:22 Dose: 75 mg Folic Acid (Folic Acid -) 1 mg PO DAILY [facility] Last Admin: 04/25/19 09:22 Dose: 1 mg Heparin Sodium (Porcine) (Heparin -) 5,000 unit SQ TID [facility] Last Admin: 04/25/19 05:42 Dose: 5,000 unit Insulin Aspart (Novolog Vial Sliding Scale -) 1 vial SQ ACHS [facility]; Protocol Last Admin: 04/25/19 06:05 Dose: Not Given Latanoprost (Xalatan 0.005% Eye Drops -) 1 drop OU HS [facility] Last Admin: 04/24/19 21:57 Dose: 1 drop Metoprolol Succinate (Toprol Xl -) 25 mg PO DAILY [facility] Last Admin: 04/25/19 09:22 Dose: 25 mg Pantoprazole Sodium (Protonix -) 20 mg PO DAILY [facility] Last Admin: 04/25/19 09:22 Dose: 20 mg Tamsulosin HCl (Flomax -) 0.4 mg PO HS [facility] Last Admin: 04/24/19 21:55 Dose: 0.4 mg Thyroid ([place] Thyroid -) 90 mg PO DAILY [facility] Last Admin: 04/25/19 09:22 Dose: 90 mg Valsartan (Diovan -) 40 mg PO DAILY [facility] Last Admin: 04/25/19 09:22 Dose: 40 mg Review of Systems Constitutional: denies: Chills or Fever Cardiovascular: as noted above Respiratory: denies: Cough or Sputum Production Gastrointestinal: denies: Nausea, Vomiting, Diarrhea, Constipation or Abdominal Pain Genitourinary: denies: Dysuria Musculoskeletal: denies: Joint Pain Neurological: denies: Dizziness or Headache but reports persistent left hand parasthesia Vital Signs: Last Vital Signs Temp Pulse Resp BP Pulse Ox 98.6 F 79 18 115/67 96 04/25/19 09:15 04/25/19 09:15 04/25/19 09:15 04/25/19 09:15 04/25/19 09:28 Intake & Output 04/22/19 04/23/19 04/24/19 04/25/19 23:59 23:59 23:59 23:59 Intake Total 580 370 Output Total 900 1175 Balance -320 -805 Weight 162 lb Constitutional: No Distress, Calm, Thin Respiratory: Clear to A&P Bilaterally Cardiovascular: S1 S2 Regular Rate and Rhythm Grade 2/6 MEIR Gastrointestinal: Soft Benign Normal Bowel Sounds Ext: No Edema Labs: CBC, BMP 04/25/19 06:05 04/25/19 06:05 Assessment/Plan ASSESSMENT: 1. Clinical presentation is consistent with cerebro-vascular event/TIA 2. CAD post re-op CABG angina pectoris, clinically stable 3. Systolic/diastolic LV dysfunction class 0-1 NYHA classification LV failure, currently euvolemic/compensated 4. Aortic valve stenosis 5. HTN/HCVD 6. Hypercholesterolemia 7. AV block post PPM 8. Tricuspid valve regurgitation and pulmonary HTN 9. Carotid stenosis 10. Thoracic aortic aneurysm (ascending 4.0 cm) 11. 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 Continue Toprol XL 2. Continue Diovan 3. Continue Lipitor 4. continue ASA and Plavix 5. Plan for outpatient KEYLA for further evaluation of source of embolus, discussed in detail with the patient 6. Can be D/C home from the cardiovascular point of view and F/U in the office in 1-2 week Hanna Monson M.D.
--- NOTE | 2019-04-25 10:54 | RAPID ---
Physical Examination Vital Signs: Vital Signs Temperature 98.6 F 04/25/19 09:15 Pulse Rate 79 04/25/19 09:15 Respiratory Rate 18 04/25/19 09:15 Blood Pressure 115/67 04/25/19 09:15 O2 Sat by Pulse Oximetry (%) 96 04/25/19 09:28 Findings/Remarks: Rapid response was called at 10:15AM. Team arrived at bedside and patient was found to be AOx3, complaining of increased numbness and tingling in his left hand, decreased strength, as well as slurred speech that lasted for a few minutes and had resolved by the time the team arrived. First vitals were BP119/90 P81 O2 98% R/R16 NIH score was 0 Second vitals were BP121/79 P75 O2 98% R/R16 Patient was taken for a stat CT Head without contrast, which turned out to be normal. The team spoke with his Neurologist, Dr. Vazquez, and ASA was replaced with Aggrenox, as per Dr. Vazquez's advice. Labs: CBC, BMP 04/25/19 06:05 04/25/19 06:05 Suspected CVA MD Exam Time (Code Long Time): 10:15 CT Stroke ordered: Yes Stat "Code Long" Consult to Neurology called & responded: Yes Last Known Well (Date): 04/25/19 Last Known Well (Time): 10:15 Symptom Discovery (Date): 04/25/19 Symptom Discovery (Time): 10:00 - NIH Stroke Scale/Score Level of consciousness: Alert Ask patient the month and their age: Answers both correctly Ask patient to open & close eyes; make fist and let go: Obeys both correctly Best gaze (horizontal eye movement): Normal Visual field testing: No visual field loss Facial paresis (Show teeth/raise eyebrows/close eyes tight): Normal symmetrical movement Motor Function: Left Arm: Normal Motor Function: Right Arm: Normal (extends arm 90 (or 45) degrees for 10 seconds without drift Motor Function: Left Leg: Normal (extends leg 30 degrees for 5 seconds without drift) Motor Function: Right Leg: Normal (extends leg 30 degrees for 5 seconds without drift) Limb Ataxia: No ataxia Sensory(Use pinprick test arms,legs,trunk,face/side to side): Normal Best language (Describe picture, name items, read sentences): No Aphasia Dysarthria (read several words): Normal articulation Extinction and Inattention: No abnormality NIH Stroke Scale Score: 0
[2019-04-25] MEDS: ASPIRIN/DIPYRIDAMOLE 25 MG/200 MG CAPSULE PO SCH ×2 (13:25→21:29)
--- NOTE | 2019-04-25 15:11 | PN ---
Physical Exam: SUBJECTIVE: Patient seen and examined by the bedside, AOx3, no acute events overnight. OBJECTIVE: Vital Signs Period Temp Pulse Resp BP Sys/Stewart Pulse Ox Last 24 Hr 97.8 F-98.6 F 74-81 18-18 102-120/66-73 95-96 GENERAL: The patient is awake, alert, and fully oriented, in no acute distress. HEAD: Normal with no signs of trauma. EYES: PERRL, extraocular movements intact, sclera anicteric, conjunctiva clear. No ptosis. ENT: Ears normal, nares patent, oropharynx clear without exudates, moist mucous membranes. NECK: Trachea midline, full range of motion, supple. LUNGS: Breath sounds equal, clear to auscultation bilaterally, no wheezes, no crackles, no accessory muscle use. HEART: Irregular rhythm, systolic murmur along RSB ABDOMEN: Soft, nontender, nondistended, normoactive bowel sounds, no guarding, no rebound, no hepatosplenomegaly, no masses. EXTREMITIES: 2+ pulses, warm, well-perfused, no edema. NEUROLOGICAL: No facial asymmetry, no hand drift, no slurring,motor strength 5/ 5 BL in upper as well as lower extremeties, no sensory defects. Cranial nerves II through XII grossly intact. Normal speech, gait not observed. PSYCH: Normal mood, normal affect. SKIN: Warm, dry, normal turgor, no rashes or lesions noted Laboratory Results - last 24 hr 04/24/19 04/24/19 04/25/19 17:21 21:54 05:41 WBC RBC Hgb Hct MCV MCH MCHC RDW Plt Count MPV Sodium Potassium Chloride Carbon Dioxide Anion Gap BUN Creatinine Est GFR (CKD-EPI)AfAm Est GFR (CKD-EPI)NonAf POC Glucometer 104 93 92 Random Glucose Calcium 04/25/19 04/25/19 04/25/19 06:05 06:05 12:26 WBC 7.0 RBC 4.28 Hgb 13.3 Hct 39.2 MCV 91.7 MCH 31.1 MCHC 33.9 RDW 14.8 Plt Count 232 MPV 8.4 Sodium 141 Potassium 4.8 Chloride 109 H Carbon Dioxide 27 Anion Gap 5 L BUN 25.4 H Creatinine 1.2 Est GFR (CKD-EPI)AfAm 63.97 Est GFR (CKD-EPI)NonAf 55.20 POC Glucometer 109 Random Glucose 101 Calcium 9.2 Active Medications Current Medications Atorvastatin Calcium (Lipitor -) 40 mg PO HS [facility] Last Admin: 04/24/19 21:55 Dose: 40 mg Clopidogrel Bisulfate (Plavix -) 75 mg PO DAILY [facility] Last Admin: 04/25/19 09:22 Dose: 75 mg Dipyridamole/Aspirin (Aggrenox -) 1 combo PO BID [facility] Last Admin: 04/25/19 13:25 Dose: 1 combo Folic Acid (Folic Acid -) 1 mg PO DAILY [facility] Last Admin: 04/25/19 09:22 Dose: 1 mg Heparin Sodium (Porcine) (Heparin -) 5,000 unit SQ TID [facility] Last Admin: 04/25/19 13:25 Dose: 5,000 unit Insulin Aspart (Novolog Vial Sliding Scale -) 1 vial SQ ACHS [facility]; Protocol Last Admin: 04/25/19 12:27 Dose: Not Given Latanoprost (Xalatan 0.005% Eye Drops -) 1 drop OU HS [facility] Last Admin: 04/24/19 21:57 Dose: 1 drop Metoprolol Succinate (Toprol Xl -) 25 mg PO DAILY [facility] Last Admin: 04/25/19 09:22 Dose: 25 mg Pantoprazole Sodium (Protonix -) 20 mg PO DAILY [facility] Last Admin: 04/25/19 09:22 Dose: 20 mg Tamsulosin HCl (Flomax -) 0.4 mg PO HS [facility] Last Admin: 04/24/19 21:55 Dose: 0.4 mg Thyroid ([place] Thyroid -) 90 mg PO DAILY [facility] Last Admin: 04/25/19 09:22 Dose: 90 mg Valsartan (Diovan -) 40 mg PO DAILY [facility] Last Admin: 04/25/19 09:22 Dose: 40 mg ASSESSMENT/PLAN: 83M with PMH significant for HTN, HLD, CAD, CHF, , pacemaker, R inguinal sarcoma, anemia presented to the ER after complaints of L sided facial numbness , slurred speech, drooling, and LUE numbness and tingling that started a few hours before presentation. #TIA - Had an episode of L arm weakness and slurred speech, CT was normal, ASA replaced with Aggrenox - Neuro consult (Dr. Valentino): not a candidate for tPA, ASA replaced with Aggrenox - Lipitor 40mg - CT Head: Negative 2x - Carotid duplex: Plaques in RCC and LCC, no HD significant stenosis, flow in both vertebral arteries - EKG: atrial-paced rhythm with prolonged AV conduction, QTc 436, HR 70 - Speech eval/Neuro check Q1H/PT/Fall risk precautions/Stroke dysphagia screen #Hx of CAD s/p CABG - Continue Aggrenox, Plavix 75mg #Hx of Aortic Stenosis - Cardio consulted (Dr. Bronson): No further cardiac intervention, continue Metoprolol, Plavix, Lipitor - Dr. Monson: PPM interrogated 2 weeks ago, no abnormal findings. Will consider KEYLA outpatient, no further intervention #Hx of HTN - Valsartan 40mg, Metoprolol 25mg #Hx of HLD - Lipitor #Hx of NIDDM - Hold all oral DM meds. BGM/ISS ACHS. #Hx of Glaucoma - Cont home meds: Travoprost 1 drop OU QD #DVT PE - SCDs - Lovenox 40mg #FEN - Diabetic Diet #Dispo - Tele Visit type - Emergency Visit Emergency Visit: Yes ED Registration Date: 04/25/19 Care time: The patient presented to the Emergency Department on the above date and was hospitalized for further evaluation of their emergent condition. - New Patient This patient is new to me today: No - Critical Care Critical Care patient: No - Discharge Referral Referred to [facility] Med P.C.: No ATTENDING PHYSICIAN STATEMENT I saw and evaluated the patient. I reviewed the resident's note and discussed the case with the resident. I agree with the resident's findings and plan as documented. SUBJECTIVE: OBJECTIVE: ASSESSMENT AND PLAN:
--- NOTE | 2019-04-25 15:53 | PN ---
Teaching Attending Note Name of Resident: Warren Phillips ATTENDING PHYSICIAN STATEMENT I saw and evaluated the patient. I reviewed the resident's note and discussed the case with the resident. I agree with the resident's findings and plan as documented. SUBJECTIVE: Patient had an episode of slurred speech, left hand numbness and weakness this morning. OBJECTIVE: Vital Signs Period Temp Pulse Resp BP Sys/Stewart Pulse Ox Last 24 Hr 97.6 F-98.6 F 73-81 16-19 100-121/56-90 95-96 HEART: S1S2, RRR LUNGS: Clear ABDOMEN: Soft, non-tender, non-distended, normal BS EXTREMITIES: No edema NEUROLOGICAL: Alert, oriented, non-focal Laboratory Results - last 24 hr 04/24/19 04/24/19 04/25/19 17:21 21:54 05:41 WBC RBC Hgb Hct MCV MCH MCHC RDW Plt Count MPV Sodium Potassium Chloride Carbon Dioxide Anion Gap BUN Creatinine Est GFR (CKD-EPI)AfAm Est GFR (CKD-EPI)NonAf POC Glucometer 104 93 92 Random Glucose Calcium 04/25/19 04/25/19 04/25/19 06:05 06:05 12:26 WBC 7.0 RBC 4.28 Hgb 13.3 Hct 39.2 MCV 91.7 MCH 31.1 MCHC 33.9 RDW 14.8 Plt Count 232 MPV 8.4 Sodium 141 Potassium 4.8 Chloride 109 H Carbon Dioxide 27 Anion Gap 5 L BUN 25.4 H Creatinine 1.2 Est GFR (CKD-EPI)AfAm 63.97 Est GFR (CKD-EPI)NonAf 55.20 POC Glucometer 109 Random Glucose 101 Calcium 9.2 Current Medications Generic Name Dose Route Start Last Admin Trade Name Michaelq PRN Reason Stop Dose Admin Atorvastatin Calcium 40 mg 04/24/19 22:00 04/24/19 21:55 Lipitor - PO 40 mg HS [facility] Administration Clopidogrel Bisulfate 75 mg 04/23/19 13:00 04/25/19 09:22 Plavix - PO 75 mg DAILY [facility] Administration Dipyridamole/Aspirin 1 combo 04/25/19 12:30 04/25/19 13:25 Aggrenox - PO 1 combo BID [facility] Administration Folic Acid 1 mg 04/23/19 13:00 04/25/19 09:22 Folic Acid - PO 1 mg DAILY [facility] Administration Heparin Sodium (Porcine) 5,000 unit 04/23/19 22:00 04/25/19 13:25 Heparin - SQ 5,000 unit TID [facility] Administration Insulin Aspart 1 vial 04/23/19 22:00 04/25/19 12:27 Novolog Vial Sliding Scale - SQ Not Given ACHS [facility] Protocol Latanoprost 1 drop 04/23/19 22:00 04/24/19 21:57 Xalatan 0.005% Eye Drops - OU 1 drop HS [facility] Administration Metoprolol Succinate 25 mg 04/23/19 13:00 04/25/19 09:22 Toprol Xl - PO 25 mg DAILY [facility] Administration Pantoprazole Sodium 20 mg 04/23/19 13:00 04/25/19 09:22 Protonix - PO 20 mg DAILY [facility] Administration Tamsulosin HCl 0.4 mg 04/23/19 22:00 04/24/19 21:55 Flomax - PO 0.4 mg HS [facility] Administration Thyroid 90 mg 04/23/19 13:00 04/25/19 09:22 [place] Thyroid - PO 90 mg DAILY [facility] Administration Valsartan 40 mg 04/23/19 13:00 04/25/19 09:22 Diovan - PO 40 mg DAILY [facility] Administration ASSESSMENT AND PLAN: This is an 83 year old man with a history of HTN, hyperlipidemia, CAD, CABG, chronic systolic and diastolic heart failure, , pacemaker, hypothyroidism, right inguinal sarcoma, anemia who presented to the ED with left sided facial numbness, slurred speech, drooling, and LUE numbness and tingling. 1. TIA, recurrent - Aspirin changed to Aggrenox - Continue Plavix, Lipitor - No evidence of atrial fib on tele or pacemaker interrogation - Plan for KEYLA as outpatient 2. CAD, history of CABG - Continue aspirin (Aggrenox), Plavix, Toprol XL, Lipitor 3. Aortic stenosis 4. HTN - Continue Diovan, Toprol XL 5. Hyperlipidemia - Continue Lipitor 6. Type 2 DM - Continue Novolog sliding scale 7. Chronic systolic and diastolic heart failure - Stable 8. Hypothyroidism - Continue [place] thyroid 9. Glaucoma - Continue Xalatan 10. Thoracic aortic aneurysm 11. History of AV block - Has pacemaker
[2019-04-25] MEDS ORDERED: SODIUM CHLORIDE 1,000 ML IV STA (20:09)
[2019-04-25] MEDS: TAMSULOSIN HCL 0.4 MG CAP PO SCH (21:29)
[2019-04-25] MEDS: ATORVASTATIN CA 40 MG TABLET (FP) PO SCH (21:29)
[2019-04-25] MEDS: LATANOPROST 0.005% OPHTH SOLN 2.5ML BOTTLE OU SCH (21:31)
[2019-04-26] MEDS ORDERED: POLYETHYLENE GLYCOL 3350 119 GM BTL PO ONE (00:54)
[2019-04-26] MEDS ORDERED: DOCUSATE SODIUM 100 MG CAPSULE (FP) PO ONE (00:54)
[2019-04-26] MEDS ORDERED: ACETAMINOPHEN 325 MG TABLET (FP) PO ONE (00:57)
[2019-04-26] MEDS: HEPARIN NA (PORCINE) 5,000 UNITS/ML 1ML VIAL SQ SCH ×3 (05:38→22:20)
[2019-04-26] MEDS: INSULIN SLIDING SCALE (NOVOLOG) 1 VIAL SQ SCH ×4 (06:01→22:20)
[2019-04-26 07:32] LABS: HEMATOCRIT 37.3 % (35.4-49); HEMOGLOBIN 12.4 GM/dL (11.7-16.9); MCH 30.6 pg (25.7-33.7); MCHC 33.1 g/dl (32.0-35.9); MEAN CELL VOLUME 92.4 fl (80-96); MEAN PLT VOLUME 8.7 fl (7.5-11.1); PLATELET COUNT 211 K/MM3 (134-434); RBC 4.04 M/mm3 (4.00-5.60); RDW 14.6 % (11.9-15.9); WHITE BLOOD COUNT 8.8 K/mm3 (4.0-10.0)
[2019-04-26 07:40] LABS: BLOOD UREA NITROGEN 25.8 mg/dL (7-18); CALCIUM 8.6 mg/dL (8.5-10.1); CREATININE 1.1 mg/dL (0.55-1.3); POTASSIUM 4.3 mmol/L (3.5-5.1)
[2019-04-26] MEDS ORDERED: PT OWN MED DRAWER 7, Y5N ONE ×2 (10:01→10:08)
[2019-04-26] MEDS: metoPROLOL SUCCINATE 25 MG TAB.SR.24H (FP) PO SCH (10:05)
[2019-04-26] MEDS: PANTOPRAZOLE 20 MG TABLET (FP) PO SCH (10:05)
[2019-04-26] MEDS: VALSARTAN 40 MG TABLET (FP) PO SCH (10:05)
[2019-04-26] MEDS: FOLIC ACID 1 MG TABLET (FP) PO SCH (10:05)
[2019-04-26] MEDS: ASPIRIN/DIPYRIDAMOLE 25 MG/200 MG CAPSULE PO SCH ×2 (10:06→22:19)
[2019-04-26] MEDS: CLOPIDOGREL BISULFATE 75 MG TABLET (FP) PO SCH (10:06)
[2019-04-26] MEDS: THYROID 60 MG TABLET PO SCH (10:08)
--- NOTE | 2019-04-26 11:35 | PN ---
Progress Note, [facility] CROCHETER - Note Progress Note: Selected Entries 04/25/19 04/25/19 04/25/19 02:00 07:00 09:15 Breakfast Lunch Supper Temperature 98.2 F 98.0 F 98.6 F 04/25/19 04/25/19 04/25/19 09:30 14:28 18:00 Breakfast 75% Lunch 75% Supper 75% Temperature 97.6 F 97.7 F 04/25/19 04/26/19 04/26/19 20:00 00:35 06:00 Breakfast Lunch Supper Temperature 97.7 F 97.6 F 97.7 F Laboratory Tests 04/26/19 06:00 WBC 8.8 Period of altered speech, left tingling noted yesterday. Pending head/neck CTA ordered. Pt seen bedside. Speech,swallow, cognition at baseline. Tolerating diet well.
--- NOTE | 2019-04-26 17:23 | PN ---
Teaching Attending Note Name of Resident: Warren Phillips ATTENDING PHYSICIAN STATEMENT I saw and evaluated the patient. I reviewed the resident's note and discussed the case with the resident. I agree with the resident's findings and plan as documented. SUBJECTIVE: No pain , no blurry vision , slight BOYER. no weakness, but has numbness in L hand ( 1st three fingers ) which has gotten better compared to yesterday per , speech is normal OBJECTIVE: NAD CV : RRR, 3/6 SM at base estefania RUSB. 3/ SM at LLSB Lungs: CTAB Ext : No edema or erythema neuro : EOMI, round equal pupils, reactive to light, no facial droop. tongue and uvula at mid line. strength 5/5 in upepr and lwoer extremities proximally and distally. sensation to light touch Nl, even in hands. Nl speech . reflexes 1 + biceps and knee jerk ASSESSMENT AND PLAN: 83 y/o man with h/o HTN, hypothyroidism, CAD, CABG, Chronic systolic andidastolic heart failure, high degree AV block, s/p PPM, , R inguinal sarcoma, and other medical problems who presented with slurred speech and LUE numbness 1- Slurred speech and LUE numbness, likely TIA. - Given recurrent sx in same distribution, will get CTA of head and neck to r/o thrombosis - last echo was in Sep. will repeat TTE in house . out pt KEYLA if indicated by card - tele no events - cont aggrenox and plavix per neuro - serial neuro exam - cont lipitor 2- CAD, HTN : cont meds 3- DM : cont SSI , hold metformin 4- h/o . 5- H/o chronic Systolic and diastolic heart failure. sable. dispo : Monitor on tele
[2019-04-26] MEDS: ACETAMINOPHEN 325 MG TABLET (FP) PO PRN (17:41)
[2019-04-26] MEDS: SODIUM CHLORIDE 1,000 ML IV SCH (17:42)
--- NOTE | 2019-04-26 18:32 | PN ---
Progress Note, Physician History of Present Illness: Reports resolving left hand parasthesia, denies any slurred speech, persistence of sinus rhythm is noted, denies any chest pain or dyspnea - Current Medication List Current Medications: Active Medications Acetaminophen (Tylenol -) 650 mg PO Q6H PRN PRN Reason: Fever Or Pain Last Admin: 04/26/19 17:41 Dose: 650 mg Atorvastatin Calcium (Lipitor -) 40 mg PO HS [facility] Last Admin: 04/25/19 21:29 Dose: 40 mg Clopidogrel Bisulfate (Plavix -) 75 mg PO DAILY [facility] Last Admin: 04/26/19 10:06 Dose: 75 mg Dipyridamole/Aspirin (Aggrenox -) 1 combo PO BID [facility] Last Admin: 04/26/19 10:06 Dose: 1 combo Folic Acid (Folic Acid -) 1 mg PO DAILY [facility] Last Admin: 04/26/19 10:05 Dose: 1 mg Heparin Sodium (Porcine) (Heparin -) 5,000 unit SQ TID [facility] Last Admin: 04/26/19 14:00 Dose: 5,000 unit Sodium Chloride (Normal Saline -) 1,000 mls @ 75 mls/hr IV ASDIR [facility] Last Admin: 04/26/19 17:42 Dose: 75 mls/hr Insulin Aspart (Novolog Vial Sliding Scale -) 1 vial SQ [facility]; Protocol Last Admin: 04/26/19 17:42 Dose: Not Given Latanoprost (Xalatan 0.005% Eye Drops -) 1 drop OU HS [facility] Last Admin: 04/25/19 21:31 Dose: 1 drop Metoprolol Succinate (Toprol Xl -) 25 mg PO DAILY [facility] Last Admin: 04/26/19 10:05 Dose: 25 mg Pantoprazole Sodium (Protonix -) 20 mg PO DAILY [facility] Last Admin: 04/26/19 10:05 Dose: 20 mg Tamsulosin HCl (Flomax -) 0.4 mg PO HS [facility] Last Admin: 04/25/19 21:29 Dose: 0.4 mg Thyroid ([place] Thyroid -) 90 mg PO DAILY [facility] Last Admin: 04/26/19 10:08 Dose: 90 mg Valsartan (Diovan -) 40 mg PO DAILY [facility] Last Admin: 04/26/19 10:05 Dose: 40 mg - Objective Vital Signs: Vital Signs Temperature 97.0 F L 04/26/19 13:56 Pulse Rate 75 04/26/19 13:56 Respiratory Rate 14 04/26/19 13:56 Blood Pressure 103/67 04/26/19 13:56 O2 Sat by Pulse Oximetry (%) 98 04/26/19 11:00 Constitutional: Yes: No Distress, Calm Neck: Yes: Supple Cardiovascular: Yes: Regular Rate and Rhythm Respiratory: Yes: Regular, CTA Bilaterally Gastrointestinal: Yes: Normal Bowel Sounds, Soft Edema: No Labs: CBC, BMP 04/26/19 06:00 04/26/19 06:00 INR, PTT INR 1.12 (0.83-1.09) H 04/23/19 09:15 Problem List - Problems (1) Transient ischemic attack Code(s): G45.9 - TRANSIENT CEREBRAL ISCHEMIC ATTACK, UNSPECIFIED (2) AV block, complete Code(s): I44.2 - ATRIOVENTRICULAR BLOCK, COMPLETE (3) Aortic stenosis Code(s): I35.0 - NONRHEUMATIC AORTIC (VALVE) STENOSIS Qualifiers: Cardiac valve disease etiology: nonrheumatic Qualified Code(s): I35.0 - Nonrheumatic aortic (valve) stenosis (4) History of cardiac pacemaker Code(s): Z95.0 - PRESENCE OF CARDIAC PACEMAKER (5) History of myocardial infarction Code(s): I25.2 - OLD MYOCARDIAL INFARCTION (6) Hx of CABG Code(s): Z95.1 - PRESENCE OF AORTOCORONARY BYPASS GRAFT (7) Hyperlipidemia Code(s): E78.5 - HYPERLIPIDEMIA, UNSPECIFIED Qualifiers: Hyperlipidemia type: pure hypercholesterolemia Qualified Code(s): E78.00 - Pure hypercholesterolemia, unspecified; E78.0 - Pure hypercholesterolemia (8) Hypertensive heart disease Code(s): I11.9 - HYPERTENSIVE HEART DISEASE WITHOUT HEART FAILURE Qualifiers: Heart failure presence: without heart failure Qualified Code(s): I11.9 - Hypertensive heart disease without heart failure (9) Hypothyroidism Code(s): E03.9 - HYPOTHYROIDISM, UNSPECIFIED Qualifiers: Hypothyroidism type: unspecified Qualified Code(s): E03.9 - Hypothyroidism , unspecified (10) Thoracic ascending aortic aneurysm Code(s): I71.2 - THORACIC AORTIC ANEURYSM, WITHOUT RUPTURE (11) Systolic dysfunction without heart failure Code(s): I51.89 - OTHER ILL-DEFINED HEART DISEASES Assessment/Plan 12/25/2018 LHC: Normal LM, 100% prox LAD, LAD-De 100%, LCx-OM 100%, mid LCx 50% , prox RCA 100%, patent CORTEZ->LAD with small distal vessel, patent free ROSA-> dRCA, SVG->LCx occluded from initial surgery, SVG-OM1 patent, SVG->OM2 patent, SVG->LAD-D2 closed culprit for acute event 12/26/2018 Echo: Normal LV size with moderate reduction LVEF 40%, severe dilatation of RV with reduced systolic fxn, mod MG 16 mmHg, mod TR, GURVINDER 04/26/2019 CTA: 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 Clinical presentation is consistent with cerebrovascular event/TIA 2. CAD post re-op CABG angina pectoris, clinically stable 3. Systolic/diastolic LV dysfunction class 0-1 NYHA classification LV failure, currently euvolemic/compensated 4. Aortic valve stenosis 5. HTN/HCVD 6. Hypercholesterolemia 7. AV block post PPM 8. Tricuspid valve regurgitation and pulmonary HTN 9. Carotid stenosis 10. Thoracic aortic aneurysm (ascending 4.0 cm) 11. 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 Pacemaker interrogation and telemetry unrevealing for PAF 2. Continue Toprol XL 25 qd and Diovan 40 qd as tolerated 3. Continue Lipitor 40 qd, Aggrenox bid and Plavix 75 qd 4. S&S evaluation appreciated 5. Eventual f/u with Dr. Monson in office , Plan for outpatient KEYLA for further evaluation of source of embolus 6. Thank you for consultative opportunity
--- NOTE | 2019-04-26 18:32 | PN ---
Physical Exam: SUBJECTIVE: Patient seen and examined by the bedside, AOx3, no acute events overnight. OBJECTIVE: Vital Signs Period Temp Pulse Resp BP Sys/Stewart Pulse Ox Last 24 Hr 97.0 F-97.8 F 72-82 14-18 88-121/51-67 98-98 GENERAL: The patient is awake, alert, and fully oriented, in no acute distress. HEAD: Normal with no signs of trauma. EYES: PERRL, extraocular movements intact, sclera anicteric, conjunctiva clear. No ptosis. ENT: Ears normal, nares patent, oropharynx clear without exudates, moist mucous membranes. NECK: Trachea midline, full range of motion, supple. LUNGS: Breath sounds equal, clear to auscultation bilaterally, no wheezes, no crackles, no accessory muscle use. HEART: Irregular rhythm, systolic murmur along RSB ABDOMEN: Soft, nontender, nondistended, normoactive bowel sounds, no guarding, no rebound, no hepatosplenomegaly, no masses. EXTREMITIES: 2+ pulses, warm, well-perfused, no edema. NEUROLOGICAL: No facial asymmetry, no hand drift, no slurring,motor strength 5/ 5 BL in upper as well as lower extremeties, no sensory defects. Cranial nerves II through XII grossly intact. Normal speech, gait not observed. PSYCH: Normal mood, normal affect. SKIN: Warm, dry, normal turgor, no rashes or lesions noted Laboratory Results - last 24 hr 04/25/19 04/26/19 04/26/19 21:28 05:36 06:00 WBC 8.8 RBC 4.04 Hgb 12.4 Hct 37.3 MCV 92.4 MCH 30.6 MCHC 33.1 RDW 14.6 Plt Count 211 MPV 8.7 Sodium Potassium Chloride Carbon Dioxide Anion Gap BUN Creatinine Est GFR (CKD-EPI)AfAm Est GFR (CKD-EPI)NonAf POC Glucometer 102 107 Random Glucose Calcium 04/26/19 04/26/19 06:00 17:35 WBC RBC Hgb Hct MCV MCH MCHC RDW Plt Count MPV Sodium 143 Potassium 4.3 Chloride 112 H Carbon Dioxide 22 Anion Gap 9 BUN 25.8 H Creatinine 1.1 Est GFR (CKD-EPI)AfAm 71.07 Est GFR (CKD-EPI)NonAf 61.32 POC Glucometer 116 Random Glucose 109 H Calcium 8.6 Active Medications Generic Name Dose Route Start Last Admin Trade Name Shannon PRN Reason Stop Dose Admin Acetaminophen 650 mg 04/26/19 17:33 04/26/19 17:41 Tylenol - PO 650 mg Q6H PRN Administration Fever Or Pain Atorvastatin Calcium 40 mg 04/24/19 22:00 04/25/19 21:29 Lipitor - PO 40 mg HS [facility] Administration Clopidogrel Bisulfate 75 mg 04/23/19 13:00 04/26/19 10:06 Plavix - PO 75 mg DAILY [facility] Administration Dipyridamole/Aspirin 1 combo 04/25/19 12:30 04/26/19 10:06 Aggrenox - PO 1 combo BID [facility] Administration Folic Acid 1 mg 04/23/19 13:00 04/26/19 10:05 Folic Acid - PO 1 mg DAILY [facility] Administration Heparin Sodium (Porcine) 5,000 unit 04/23/19 22:00 04/26/19 14:00 Heparin - SQ 5,000 unit TID [facility] Administration Sodium Chloride 1,000 mls @ 75 mls/hr 04/26/19 10:30 04/26/19 17:42 Normal Saline - IV 75 mls/hr ASDIR [facility] Administration Insulin Aspart 1 vial 04/23/19 22:00 04/26/19 17:42 Novolog Vial Sliding Scale - SQ Not Given ACHS [facility] Protocol Latanoprost 1 drop 04/23/19 22:00 04/25/19 21:31 Xalatan 0.005% Eye Drops - OU 1 drop HS [facility] Administration Metoprolol Succinate 25 mg 04/23/19 13:00 04/26/19 10:05 Toprol Xl - PO 25 mg DAILY [facility] Administration Pantoprazole Sodium 20 mg 04/23/19 13:00 04/26/19 10:05 Protonix - PO 20 mg DAILY [facility] Administration Tamsulosin HCl 0.4 mg 04/23/19 22:00 04/25/19 21:29 Flomax - PO 0.4 mg HS [facility] Administration Thyroid 90 mg 04/23/19 13:00 04/26/19 10:08 [place] Thyroid - PO 90 mg DAILY [facility] Administration Valsartan 40 mg 04/23/19 13:00 04/26/19 10:05 Diovan - PO 40 mg DAILY [facility] Administration ASSESSMENT/PLAN: 83M with PMH significant for HTN, HLD, CAD, CHF, , pacemaker, R inguinal sarcoma, anemia presented to the ER after complaints of L sided facial numbness , slurred speech, drooling, and LUE numbness and tingling that started a few hours before presentation. #TIA - CTA Head/Neck (no MRI due to PPM): severe stenosis at origin of Rt vert artery (unlikely that this would cause current clinical picture) no HD significant stenosis - Lipitor 40mg - CT Head: Negative 2x - Carotid duplex: Plaques in RCC and LCC, no HD significant stenosis, flow in both vertebral arteries - EKG: atrial-paced rhythm with prolonged AV conduction, QTc 436, HR 70 - Speech eval/Neuro check Q1H/PT/Fall risk precautions/Stroke dysphagia screen #Hx of CAD s/p CABG - Continue Aggrenox, Plavix 75mg #Hx of Aortic Stenosis - Echo pending - Previous Echo from 09/24 obtained, showed severe - Cardio consulted (Dr. Bronson): No further cardiac intervention, continue Metoprolol, Plavix, Lipitor - Dr. Monson: PPM interrogated 2 weeks ago, no abnormal findings. Will consider KEYLA outpatient, no further intervention #Headache - Tylenol PRN #Hx of HTN - Valsartan 40mg, Metoprolol 25mg #Hx of HLD - Lipitor 40mg #Hx of NIDDM - Hold all oral DM meds. BGM/ISS ACHS. #Hx of Glaucoma - Cont home meds: Travoprost 1 drop OU QD #DVT PE - SCDs - Lovenox 40mg #FEN - N/S for hydration prior to CTA - Diabetic Diet #Dispo - Tele Visit type - Emergency Visit Emergency Visit: Yes ED Registration Date: 04/25/19 Care time: The patient presented to the Emergency Department on the above date and was hospitalized for further evaluation of their emergent condition. - New Patient This patient is new to me today: No - Critical Care Critical Care patient: No - Discharge Referral Referred to [facility] Med P.C.: No ATTENDING PHYSICIAN STATEMENT I saw and evaluated the patient. I reviewed the resident's note and discussed the case with the resident. I agree with the resident's findings and plan as documented. SUBJECTIVE: OBJECTIVE: ASSESSMENT AND PLAN:
[2019-04-26] MEDS: LATANOPROST 0.005% OPHTH SOLN 2.5ML BOTTLE OU SCH (22:20)
[2019-04-26] MEDS: ATORVASTATIN CA 40 MG TABLET (FP) PO SCH (22:20)
[2019-04-26] MEDS: TAMSULOSIN HCL 0.4 MG CAP PO SCH (22:23)
[2019-04-27] MEDS: HEPARIN NA (PORCINE) 5,000 UNITS/ML 1ML VIAL SQ SCH ×3 (06:22→21:37)
[2019-04-27] MEDS: SODIUM CHLORIDE 1,000 ML IV SCH (06:22)
[2019-04-27] MEDS: INSULIN SLIDING SCALE (NOVOLOG) 1 VIAL SQ SCH ×4 (06:23→21:38)
[2019-04-27 08:04] LABS: BLOOD UREA NITROGEN 19.9 mg/dL (7-18); CALCIUM 8.9 mg/dL (8.5-10.1); POTASSIUM 4.5 mmol/L (3.5-5.1)
[2019-04-27] MEDS ORDERED: PT OWN MED DRAWER 7, Y5N ONE (09:11)
--- NOTE | 2019-04-27 09:28 | PN ---
Progress Note, Physician History of Present Illness: Reports resolving left hand parasthesia, denies any slurred speech, persistence of sinus rhythm is noted, denies any chest pain or dyspnea - Current Medication List Current Medications: Active Medications Acetaminophen (Tylenol -) 650 mg PO Q6H PRN PRN Reason: Fever Or Pain Last Admin: 04/26/19 17:41 Dose: 650 mg Atorvastatin Calcium (Lipitor -) 40 mg PO HS [facility] Last Admin: 04/26/19 22:20 Dose: 40 mg Clopidogrel Bisulfate (Plavix -) 75 mg PO DAILY [facility] Last Admin: 04/26/19 10:06 Dose: 75 mg Dipyridamole/Aspirin (Aggrenox -) 1 combo PO BID [facility] Last Admin: 04/26/19 22:19 Dose: 1 combo Folic Acid (Folic Acid -) 1 mg PO DAILY [facility] Last Admin: 04/26/19 10:05 Dose: 1 mg Heparin Sodium (Porcine) (Heparin -) 5,000 unit SQ TID [facility] Last Admin: 04/27/19 06:22 Dose: 5,000 unit Sodium Chloride (Normal Saline -) 1,000 mls @ 75 mls/hr IV ASDIR [facility] Last Admin: 04/27/19 06:22 Dose: 75 mls/hr Insulin Aspart (Novolog Vial Sliding Scale -) 1 vial SQ ACHS [facility]; Protocol Last Admin: 04/27/19 06:23 Dose: Not Given Latanoprost (Xalatan 0.005% Eye Drops -) 1 drop OU HS [facility] Last Admin: 04/26/19 22:20 Dose: 1 drop Metoprolol Succinate (Toprol Xl -) 25 mg PO DAILY [facility] Last Admin: 04/26/19 10:05 Dose: 25 mg Pantoprazole Sodium (Protonix -) 20 mg PO DAILY [facility] Last Admin: 04/26/19 10:05 Dose: 20 mg Tamsulosin HCl (Flomax -) 0.4 mg PO HS [facility] Last Admin: 04/26/19 22:23 Dose: 0.4 mg Thyroid ([place] Thyroid -) 90 mg PO DAILY [facility] Last Admin: 04/26/19 10:08 Dose: 90 mg Valsartan (Diovan -) 40 mg PO DAILY [facility] Last Admin: 04/26/19 10:05 Dose: 40 mg - Objective Vital Signs: Vital Signs Temperature 97.7 F 04/27/19 06:14 Pulse Rate 80 04/27/19 06:14 Respiratory Rate 20 04/27/19 06:14 Blood Pressure 165/75 04/27/19 06:14 O2 Sat by Pulse Oximetry (%) 97 04/26/19 22:00 Constitutional: Yes: No Distress, Calm, Thin Neck: Yes: Supple Cardiovascular: Yes: Regular Rate and Rhythm, Murmur (2/6 SM) Respiratory: Yes: Regular, CTA Bilaterally Gastrointestinal: Yes: Normal Bowel Sounds, Soft Edema: No Labs: CBC, BMP 04/26/19 06:00 04/27/19 07:07 INR, PTT INR 1.12 (0.83-1.09) H 04/23/19 09:15 - ....Imaging EKG: Report Reviewed (Tele: NSR) Problem List - Problems (1) Transient ischemic attack Code(s): G45.9 - TRANSIENT CEREBRAL ISCHEMIC ATTACK, UNSPECIFIED (2) AV block, complete Code(s): I44.2 - ATRIOVENTRICULAR BLOCK, COMPLETE (3) Aortic stenosis Code(s): I35.0 - NONRHEUMATIC AORTIC (VALVE) STENOSIS Qualifiers: Cardiac valve disease etiology: nonrheumatic Qualified Code(s): I35.0 - Nonrheumatic aortic (valve) stenosis (4) History of cardiac pacemaker Code(s): Z95.0 - PRESENCE OF CARDIAC PACEMAKER (5) History of myocardial infarction Code(s): I25.2 - OLD MYOCARDIAL INFARCTION (6) Hx of CABG Code(s): Z95.1 - PRESENCE OF AORTOCORONARY BYPASS GRAFT (7) Hyperlipidemia Code(s): E78.5 - HYPERLIPIDEMIA, UNSPECIFIED Qualifiers: Hyperlipidemia type: pure hypercholesterolemia Qualified Code(s): E78.00 - Pure hypercholesterolemia, unspecified; E78.0 - Pure hypercholesterolemia (8) Hypertensive heart disease Code(s): I11.9 - HYPERTENSIVE HEART DISEASE WITHOUT HEART FAILURE Qualifiers: Heart failure presence: without heart failure Qualified Code(s): I11.9 - Hypertensive heart disease without heart failure (9) Hypothyroidism Code(s): E03.9 - HYPOTHYROIDISM, UNSPECIFIED Qualifiers: Hypothyroidism type: unspecified Qualified Code(s): E03.9 - Hypothyroidism , unspecified (10) Thoracic ascending aortic aneurysm Code(s): I71.2 - THORACIC AORTIC ANEURYSM, WITHOUT RUPTURE (11) Systolic dysfunction without heart failure Code(s): I51.89 - OTHER ILL-DEFINED HEART DISEASES Assessment/Plan 12/25/2018 LHC: Normal LM, 100% prox LAD, LAD-De 100%, LCx-OM 100%, mid LCx 50% , prox RCA 100%, patent CORTEZ->LAD with small distal vessel, patent free ROSA-> dRCA, SVG->LCx occluded from initial surgery, SVG-OM1 patent, SVG->OM2 patent, SVG->LAD-D2 closed culprit for acute event 12/26/2018 Echo: Normal LV size with moderate reduction LVEF 40%, severe dilatation of RV with reduced systolic fxn, mod MG 16 mmHg, mod TR, GURVINDER 04/26/2019 CTA: 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 Clinical presentation is consistent with cerebrovascular event/TIA resolving 2. CAD post re-op CABG angina pectoris, clinically stable 3. Systolic/diastolic LV dysfunction class 0-1 NYHA classification LV failure, currently euvolemic/compensated 4. Aortic valve stenosis 5. HTN/HCVD 6. Hypercholesterolemia 7. AV block post PPM 8. Tricuspid valve regurgitation and pulmonary HTN 9. Carotid stenosis 10. Thoracic aortic aneurysm (ascending 4.0 cm) 11. CKD 12. 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 Pacemaker interrogation and telemetry unrevealing for PAF 2. Continue Toprol XL 25 qd and Diovan 40 qd as tolerated 3. Continue Lipitor 40 qd, Aggrenox bid and Plavix 75 qd 4. S&S evaluation appreciated, f/u echo ordered 5. Eventual f/u with Dr. Monson in office , Plan for outpatient KEY[facility] for further evaluation of source of embolus 6. Thank you for consultative opportunity
[2019-04-27] MEDS: THYROID 60 MG TABLET PO SCH (10:24)
[2019-04-27] MEDS: PANTOPRAZOLE 20 MG TABLET (FP) PO SCH (10:25)
[2019-04-27] MEDS: VALSARTAN 40 MG TABLET (FP) PO SCH (10:25)
[2019-04-27] MEDS: CLOPIDOGREL BISULFATE 75 MG TABLET (FP) PO SCH (10:25)
[2019-04-27] MEDS: metoPROLOL SUCCINATE 25 MG TAB.SR.24H (FP) PO SCH (10:25)
[2019-04-27] MEDS: ASPIRIN/DIPYRIDAMOLE 25 MG/200 MG CAPSULE PO SCH ×2 (10:25→21:37)
[2019-04-27] MEDS: FOLIC ACID 1 MG TABLET (FP) PO SCH (10:25)
--- NOTE | 2019-04-27 10:55 | PN ---
Teaching Attending Note Name of Resident: Warren Phillips ATTENDING PHYSICIAN STATEMENT I saw and evaluated the patient. I reviewed the resident's note and discussed the case with the resident. I agree with the resident's findings and plan as documented. SUBJECTIVE: No fever or chills. No BOYER now. no weakness. walked without a walker with steady gait. L hand numbness in first three fingers is better No events last night OBJECTIVE: NAD CV : RRR, 3/6 SM at base estefania RUSB. 3/6 SM at LLSB Lungs: CTAB Ext : No edema or erythema neuro : EOMI, round equal pupils, reactive to light, no facial droop. tongue and uvula at mid line. strength 5/5 in upper and lower extremities proximally and distally. sensation to light touch Nl, even in hands. Nl speech . reflexes 1 + biceps and knee jerk bilaterally. ASSESSMENT AND PLAN: 83 y/o man with h/o HTN, hypothyroidism, CAD, CABG, Chronic systolic andidastolic heart failure, high degree AV block, s/p PPM, , R inguinal sarcoma, and other medical problems who presented with slurred speech and LUE numbness 1- Slurred speech and LUE numbness, likely TIA causing slurred speech. - CTA showed severe stenosis of the R vertebral artery, unlikely contributing to sx. - will d/w beuro above. will d/w Vascular - Possible C spine pathology causing the L hand numbness. - echo this am , then evaluation by card as out pt - tele with no events - cont aggrenox and plavix per neuro - cont lipitor 2- CAD, HTN: cont meds. 3- DM: cont SSI, resume metformin on 04/29 due to dye load 4- H/o . 5- H/o chronic Systolic and diastolic heart failure. sable. dc IVF Dispo : dc home if echo is unremarkable and if no vascular intervention is needed. f/u with neuro, PCP , and vascular, and card
--- NOTE | 2019-04-27 11:15 | PN ---
Progress Note, [facility] - Note Progress Note: Selected Entries 04/26/19 04/26/19 04/26/19 00:35 06:00 10:00 Breakfast Diet Tolerated Lunch Supper Temperature 97.6 F 97.7 F 97.8 F 04/26/19 04/26/19 04/26/19 13:56 18:00 21:00 Breakfast 100% Diet Tolerated Well Well Lunch 75% Supper 75% Temperature 97.0 F L 98.1 F 98.2 F 04/27/19 04/27/19 02:00 06:14 Breakfast Diet Tolerated Lunch Supper Temperature 98.1 F 97.7 F Laboratory Tests 04/26/19 06:00 WBC 8.8 head/neck CTA reviewed. Speech,swallow, cognition at baseline. Tolerating diet well. No further f/u indicated.
--- NOTE | 2019-04-27 13:51 | ECHO ---
Name: BECKY PIMENTEL Exam:Adult Echocardiogram Study Date: 04/27/2019 08:38 AM Age: 83 yrs Reason For Study: a fib Height: 69 in Weight: 162 lb BSA: 1.9 m2 MMode/2D Measurements & Calculations IVSd: 0.84 cm Ao root diam: 3.6 cm LVIDd: 5.1 cm LA dimension: 5.0 cm LVIDs: 3.5 cm ACS: 0.39 cm LVPWd: 0.84 cm IVSs: 0.93 cm LVPWs: 1.0 cm EDV(Teich): 126.1 ml ESV(Teich): 51.2 ml LVOT diam: 2.0 cm Doppler Measurements & Calculations MV E max ryan: 76.0 cm/sec Ao V2 max: 199.7 cm/sec MV A max ryan: 125.4 cm/sec Ao max P.0 mmHg MV E/A: 0.61 Ao V2 mean: 144.9 cm/sec Ao mean P.4 mmHg Ao V2 VTI: 60.9 cm CHARBEL(I,D): 0.62 cm2 CHARBEL(V,D): 0.83 cm2 LV V1 max P.1 mmHg MR max ryan: 419.1 cm/sec LV V1 mean P.63 mmHg MR max P.3 mmHg LV V1 max: 52.7 cm/sec LV V1 mean: 37.6 cm/sec LV V1 VTI: 12.0 cm SV(LVOT): 37.6 ml TR max ryan: 208.2 cm/sec TR max P.4 mmHg PI end-d ryan: 112.7 cm/sec Med Peak E' Ryan: 5.8 cm/sec Med E/e': 13.1 Lat Peak E' Ryan: 6.8 cm/sec Lat E/e': 11.2 Procedure A complete two-dimensional transthoracic echocardiogram was performed (2D, M-mode, Doppler and color flow Doppler). Left Ventricle The left ventricular size, thickness and function are normal. The left ventricular ejection fraction is normal. Ejection Fraction = 60-65%. The left ventricular wall motion is normal. Right Ventricle The right ventricle is normal in size and function. Atria Normal left and right atrial size and function. Mitral Valve There is mild mitral regurgitation. Tricuspid Valve There is moderate tricuspid regurgitation. Right ventricular systolic pressure is normal. Aortic Valve Aortic valve gradients not seen well but visually and by valve area there is severe aortic stenosis. Trace aortic regurgitation. Pulmonic Valve There is no pulmonic valvular regurgitation. Great Vessels The aortic root is normal size. Pericardium/Pleura There is no pericardial effusion. Interpretation Summary The left ventricular size, thickness and function are normal The right ventricle is normal in size and function. There is mild mitral regurgitation. There is moderate tricuspid regurgitation. Trace aortic regurgitation. Aortic valve gradients not seen well but visually and by valve area there is severe aortic stenosis. MD Deangelo Solis 04/27/2019 01:50 PM
--- NOTE | 2019-04-27 18:49 | PN ---
Physical Exam: SUBJECTIVE: Patient seen and examined by the bedside, AOx3, no acute events overnight. OBJECTIVE: Vital Signs Period Temp Pulse Resp BP Sys/Stewart Pulse Ox Last 24 Hr 97.7 F-98.2 F 76-86 16-20 103-165/62-85 97 GENERAL: The patient is awake, alert, and fully oriented, in no acute distress. HEAD: Normal with no signs of trauma. EYES: PERRL, extraocular movements intact, sclera anicteric, conjunctiva clear. No ptosis. ENT: Ears normal, nares patent, oropharynx clear without exudates, moist mucous membranes. NECK: Trachea midline, full range of motion, supple. LUNGS: Breath sounds equal, clear to auscultation bilaterally, no wheezes, no crackles, no accessory muscle use. HEART: Irregular rhythm, systolic murmur along RSB ABDOMEN: Soft, nontender, nondistended, normoactive bowel sounds, no guarding, no rebound, no hepatosplenomegaly, no masses. EXTREMITIES: 2+ pulses, warm, well-perfused, no edema. NEUROLOGICAL: No facial asymmetry, no hand drift, no slurring,motor strength 5/ 5 BL in upper as well as lower extremeties, no sensory defects. Cranial nerves II through XII grossly intact. Normal speech, gait not observed. PSYCH: Normal mood, normal affect. SKIN: Warm, dry, normal turgor, no rashes or lesions noted Laboratory Results - last 24 hr 04/26/19 04/27/19 04/27/19 22:19 06:00 07:07 Sodium 144 Potassium 4.5 Chloride 112 H Carbon Dioxide 25 Anion Gap 7 L BUN 19.9 H Creatinine 1.0 Est GFR (CKD-EPI)AfAm 79.75 Est GFR (CKD-EPI)NonAf 68.81 POC Glucometer 114 108 Random Glucose 120 H Calcium 8.9 04/27/19 04/27/19 11:19 17:18 Sodium Potassium Chloride Carbon Dioxide Anion Gap BUN Creatinine Est GFR (CKD-EPI)AfAm Est GFR (CKD-EPI)NonAf POC Glucometer 149 96 Random Glucose Calcium Active Medications Generic Name Dose Route Start Last Admin Trade Name Freq PRN Reason Stop Dose Admin Acetaminophen 650 mg 04/26/19 17:33 04/26/19 17:41 Tylenol - PO 650 mg Q6H PRN Administration Fever Or Pain Atorvastatin Calcium 40 mg 08/19/19 22:00 04/26/19 22:20 Lipitor - PO 40 mg HS [facility] Administration Clopidogrel Bisulfate 75 mg 04/23/19 13:00 04/27/19 10:25 Plavix - PO 75 mg DAILY [facility] Administration Dipyridamole/Aspirin 1 combo 04/25/19 12:30 04/27/19 10:25 Aggrenox - PO 1 combo BID [facility] Administration Folic Acid 1 mg 04/23/19 13:00 04/27/19 10:25 Folic Acid - PO 1 mg DAILY [facility] Administration Heparin Sodium (Porcine) 5,000 unit 04/23/19 22:00 04/27/19 13:42 Heparin - SQ 5,000 unit TID [facility] Administration Sodium Chloride 1,000 mls @ 75 mls/hr 04/26/19 10:30 04/27/19 06:22 Normal Saline - IV 75 mls/hr ASDIR [facility] Administration Insulin Aspart 1 vial 04/23/19 22:00 04/27/19 17:20 Novolog Vial Sliding Scale - SQ Not Given ACHS [facility] Protocol Latanoprost 1 drop 04/23/19 22:00 04/26/19 22:20 Xalatan 0.005% Eye Drops - OU 1 drop HS [facility] Administration Metoprolol Succinate 25 mg 04/23/19 13:00 04/27/19 10:25 Toprol Xl - PO 25 mg DAILY [facility] Administration Pantoprazole Sodium 20 mg 04/23/19 13:00 04/27/19 10:25 Protonix - PO 20 mg DAILY [facility] Administration Tamsulosin HCl 0.4 mg 04/23/19 22:00 04/26/19 22:23 Flomax - PO 0.4 mg HS [facility] Administration Thyroid 90 mg 04/23/19 13:00 04/27/19 10:24 [place] Thyroid - PO 90 mg DAILY [facility] Administration Valsartan 40 mg 04/23/19 13:00 04/27/19 10:25 Diovan - PO 40 mg DAILY [facility] Administration ASSESSMENT/PLAN: 83M with PMH significant for HTN, HLD, CAD, CHF, , pacemaker, R inguinal sarcoma, anemia presented to the ER after complaints of L sided facial numbness , slurred speech, drooling, and LUE numbness and tingling that started a few hours before presentation. #TIA - 12 minute witnessed stroke like symptoms today with left hand weakness, subjective numbness, facial asymmetry, slurred speech - CT negative - [place] AB ordered - CTA Head/Neck (no MRI due to PPM): severe stenosis at origin of Rt vert arteryno HD significant stenosis - Carotid duplex: Plaques in RCC and LCC, no HD significant stenosis, flow in both vertebral arteries - EKG: atrial-paced rhythm with prolonged AV conduction, QTc 436, HR 70 - Lipitor 40mg - Dr Baxter consulted - Dr Tanner consulted #Hx of CAD s/p CABG - Continue Aggrenox, Plavix 75mg #Hx of Aortic Stenosis - Echo: Mild MR, Mod TR, Trace AR, Severe - Previous Echo from 09/24 obtained, showed severe - Cardio consulted (Dr. Bronson): No further cardiac intervention, continue Metoprolol, Plavix, Lipitor - Dr. Monson: PPM interrogated 2 weeks ago, no abnormal findings. Will consider [facility] outpatient, no further intervention #Headache - Tylenol PRN #Hx of HTN - Valsartan 40mg, Metoprolol 25mg held due to hypotensive episodes #Hx of HLD - Lipitor 40mg #Hx of NIDDM - Hold all oral DM meds. BGM/ISS ACHS. #Hx of Glaucoma - Cont home meds: Travoprost 1 drop OU QD #DVT PE - SCDs - Lovenox 40mg #FEN - N/S for hydration prior to CTA - Diabetic Diet #Dispo - Tele Visit type - Emergency Visit Emergency Visit: Yes ED Registration Date: 04/25/19 Care time: The patient presented to the Emergency Department on the above date and was hospitalized for further evaluation of their emergent condition. - New Patient This patient is new to me today: No - Critical Care Critical Care patient: No - Discharge Referral Referred to [facility] No ATTENDING PHYSICIAN STATEMENT I saw and evaluated the patient. I reviewed the resident's note and discussed the case with the resident. I agree with the resident's findings and plan as documented. SUBJECTIVE: OBJECTIVE: ASSESSMENT AND PLAN:
[2019-04-27] MEDS: TAMSULOSIN HCL 0.4 MG CAP PO SCH (21:37)
[2019-04-27] MEDS: LATANOPROST 0.005% OPHTH SOLN 2.5ML BOTTLE OU SCH (21:38)
[2019-04-27] MEDS: ATORVASTATIN CA 40 MG TABLET (FP) PO SCH (21:38)
[2019-04-28] MEDS: INSULIN SLIDING SCALE (NOVOLOG) 1 VIAL SQ SCH ×4 (06:15→22:20)
[2019-04-28] MEDS: HEPARIN NA (PORCINE) 5,000 UNITS/ML 1ML VIAL SQ SCH ×3 (06:15→22:16)
[2019-04-28 07:49] LABS: BLOOD UREA NITROGEN 20.3 mg/dL (7-18); CALCIUM 8.5 mg/dL (8.5-10.1); CREATININE 1.2 mg/dL (0.55-1.3); POTASSIUM 4.3 mmol/L (3.5-5.1)
[2019-04-28 09:07] LABS: HEMATOCRIT 34.6 % (35.4-49); HEMOGLOBIN 11.4 GM/dL (11.7-16.9); MCH 30.7 pg (25.7-33.7); MEAN PLT VOLUME 8.7 fl (7.5-11.1); PLATELET COUNT 191 K/MM3 (134-434); RBC 3.72 M/mm3 (4.00-5.60); RDW 15.2 % (11.9-15.9); WHITE BLOOD COUNT 6.4 K/mm3 (4.0-10.0)
[2019-04-28] MEDS: PANTOPRAZOLE 20 MG TABLET (FP) PO SCH (10:40)
[2019-04-28] MEDS: ASPIRIN/DIPYRIDAMOLE 25 MG/200 MG CAPSULE PO SCH ×2 (10:40→22:16)
[2019-04-28] MEDS: FOLIC ACID 1 MG TABLET (FP) PO SCH (10:41)
[2019-04-28] MEDS: VALSARTAN 40 MG TABLET (FP) PO SCH (10:41)
[2019-04-28] MEDS: THYROID 60 MG TABLET PO SCH (10:41)
[2019-04-28] MEDS: CLOPIDOGREL BISULFATE 75 MG TABLET (FP) PO SCH (10:41)
--- NOTE | 2019-04-28 11:00 | PN ---
Progress Note, Physician History of Present Illness: Reports resolving left hand parasthesia, denies any slurred speech, persistence of sinus rhythm is noted, denies any chest pain or dyspnea - Current Medication List Current Medications: Active Medications Acetaminophen (Tylenol -) 650 mg PO Q6H PRN PRN Reason: Fever Or Pain Last Admin: 04/26/19 17:41 Dose: 650 mg Atorvastatin Calcium (Lipitor -) 40 mg PO HS [facility] Last Admin: 04/27/19 21:38 Dose: 40 mg Clopidogrel Bisulfate (Plavix -) 75 mg PO DAILY [facility] Last Admin: 04/28/19 10:41 Dose: 75 mg Dipyridamole/Aspirin (Aggrenox -) 1 combo PO BID [facility] Last Admin: 04/28/19 10:40 Dose: 1 combo Folic Acid (Folic Acid -) 1 mg PO DAILY [facility] Last Admin: 04/28/19 10:41 Dose: 1 mg Heparin Sodium (Porcine) (Heparin -) 5,000 unit SQ TID [facility] Last Admin: 04/28/19 06:15 Dose: 5,000 unit Sodium Chloride (Normal Saline -) 1,000 mls @ 75 mls/hr IV ASDIR [facility] Last Admin: 04/27/19 06:22 Dose: 75 mls/hr Insulin Aspart (Novolog Vial Sliding Scale -) 1 vial SQ ACHS [facility]; Protocol Last Admin: 04/28/19 06:15 Dose: Not Given Latanoprost (Xalatan 0.005% Eye Drops -) 1 drop OU HS [facility] Last Admin: 04/27/19 21:38 Dose: 1 drop Metoprolol Succinate (Toprol Xl -) 25 mg PO DAILY [facility] Last Admin: 04/27/19 10:25 Dose: 25 mg Pantoprazole Sodium (Protonix -) 20 mg PO DAILY [facility] Last Admin: 04/28/19 10:40 Dose: 20 mg Tamsulosin HCl (Flomax -) 0.4 mg PO HS [facility] Last Admin: 04/27/19 21:37 Dose: 0.4 mg Thyroid ([place] Thyroid -) 90 mg PO DAILY [facility] Last Admin: 04/28/19 10:41 Dose: 90 mg Valsartan (Diovan -) 40 mg PO DAILY [facility] Last Admin: 04/28/19 10:41 Dose: 40 mg - Objective Vital Signs: Vital Signs Temperature 97.9 F 04/28/19 06:38 Pulse Rate 70 04/28/19 06:38 Respiratory Rate 18 04/28/19 06:38 Blood Pressure 100/52 L 04/28/19 06:38 O2 Sat by Pulse Oximetry (%) 95 04/27/19 21:00 Constitutional: Yes: No Distress, Calm Neck: Yes: Supple Cardiovascular: Yes: Regular Rate and Rhythm, Murmur (2/6 SM) Respiratory: Yes: Regular, CTA Bilaterally Gastrointestinal: Yes: Normal Bowel Sounds, Soft Edema: No Labs: CBC, BMP 04/28/19 06:50 04/28/19 06:50 INR, PTT INR 1.12 (0.83-1.09) H 04/23/19 09:15 - ....Imaging EKG: Report Reviewed (Tele: NSR, no PAF) Problem List - Problems (1) Transient ischemic attack Code(s): G45.9 - TRANSIENT CEREBRAL ISCHEMIC ATTACK, UNSPECIFIED (2) AV block, complete Code(s): I44.2 - ATRIOVENTRICULAR BLOCK, COMPLETE (3) Aortic stenosis Code(s): I35.0 - NONRHEUMATIC AORTIC (VALVE) STENOSIS Qualifiers: Cardiac valve disease etiology: nonrheumatic Qualified Code(s): I35.0 - Nonrheumatic aortic (valve) stenosis (4) History of cardiac pacemaker Code(s): Z95.0 - PRESENCE OF CARDIAC PACEMAKER (5) History of myocardial infarction Code(s): I25.2 - OLD MYOCARDIAL INFARCTION (6) Hx of CABG Code(s): Z95.1 - PRESENCE OF AORTOCORONARY BYPASS GRAFT (7) Hyperlipidemia Code(s): E78.5 - HYPERLIPIDEMIA, UNSPECIFIED Qualifiers: Hyperlipidemia type: pure hypercholesterolemia Qualified Code(s): E78.00 - Pure hypercholesterolemia, unspecified; E78.0 - Pure hypercholesterolemia (8) Hypertensive heart disease Code(s): I11.9 - HYPERTENSIVE HEART DISEASE WITHOUT HEART FAILURE Qualifiers: Heart failure presence: without heart failure Qualified Code(s): I11.9 - Hypertensive heart disease without heart failure (9) Hypothyroidism Code(s): E03.9 - HYPOTHYROIDISM, UNSPECIFIED Qualifiers: Hypothyroidism type: unspecified Qualified Code(s): E03.9 - Hypothyroidism , unspecified (10) Thoracic ascending aortic aneurysm Code(s): I71.2 - THORACIC AORTIC ANEURYSM, WITHOUT RUPTURE (11) Systolic dysfunction without heart failure Code(s): I51.89 - OTHER ILL-DEFINED HEART DISEASES Assessment/Plan 04/27/2019 Echo: Normal LV and RV size and fxn, mod TR, mild MR, tr AR, possible severe 12/25/2018 LHC: Normal LM, 100% prox LAD, LAD-De 100%, LCx-OM 100%, mid LCx 50% , prox RCA 100%, patent CORTEZ->LAD with small distal vessel, patent free ROSA-> dRCA, SVG->LCx occluded from initial surgery, SVG-OM1 patent, SVG->OM2 patent, SVG->LAD-D2 closed culprit for acute event 12/26/2018 Echo: Normal LV size with moderate reduction LVEF 40%, severe dilatation of RV with reduced systolic fxn, mod MG 16 mmHg, mod TR, GURVINDER 04/26/2019 CTA: 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 Clinical presentation is consistent with cerebrovascular event/TIA resolving 2. CAD post re-op CABG angina pectoris, clinically stable 3. Systolic/diastolic LV dysfunction class 0-1 NYHA classification LV failure, currently euvolemic/compensated 4. Possibly severe Aortic valve stenosis 5. HTN/HCVD 6. Hypercholesterolemia 7. AV block post PPM 8. Tricuspid valve regurgitation and pulmonary HTN 9. Carotid stenosis 10. Thoracic aortic aneurysm (ascending 4.0 cm) 11. CKD 12. 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 Pacemaker interrogation and telemetry unrevealing for PAF 2. Continue Toprol XL 25 qd and Diovan 40 qd as tolerated 3. Continue Lipitor 40 qd, Aggrenox bid and Plavix 75 qd 4. S&S evaluation appreciated, echo results reviewed with patient and 5. Eventual f/u with Dr. Monson in office , Plan for outpatient [facility]LA for further evaluation of source of embolus and severity of
--- NOTE | 2019-04-28 13:50 | PN ---
Physical Exam: SUBJECTIVE: Patient seen and examined by the bedside, AOx3, no acute events overnight. OBJECTIVE: Vital Signs Period Temp Pulse Resp BP Sys/Stewart Pulse Ox Last 24 Hr 97.8 F-97.9 F 70-84 16-18 99-140/52-84 95 GENERAL: The patient is awake, alert, and fully oriented, in no acute distress. HEAD: Normal with no signs of trauma. EYES: PERRL, extraocular movements intact, sclera anicteric, conjunctiva clear. No ptosis. ENT: Ears normal, nares patent, oropharynx clear without exudates, moist mucous membranes. NECK: Trachea midline, full range of motion, supple. LUNGS: Breath sounds equal, clear to auscultation bilaterally, no wheezes, no crackles, no accessory muscle use. HEART: Irregular rhythm, systolic murmur along RSB ABDOMEN: Soft, nontender, nondistended, normoactive bowel sounds, no guarding, no rebound, no hepatosplenomegaly, no masses. EXTREMITIES: 2+ pulses, warm, well-perfused, no edema. NEUROLOGICAL: No facial asymmetry, no hand drift, no slurring,motor strength 5/ 5 BL in upper as well as lower extremeties, no sensory defects. Cranial nerves II through XII grossly intact. Normal speech, gait not observed. PSYCH: Normal mood, normal affect. SKIN: Warm, dry, normal turgor, no rashes or lesions noted Laboratory Results - last 24 hr 04/27/19 04/27/19 04/27/19 16:50 16:50 17:18 WBC RBC Hgb Hct MCV MCH MCHC RDW Plt Count MPV Sodium Potassium Chloride Carbon Dioxide Anion Gap BUN Creatinine Est GFR (CKD-EPI)AfAm Est GFR (CKD-EPI)NonAf POC Glucometer 96 Random Glucose Calcium Vitamin B12 416 RPR Titer Nonreactive 04/27/19 04/28/19 04/28/19 21:34 06:13 06:50 WBC 6.4 RBC 3.72 L Hgb 11.4 L Hct 34.6 L MCV 93.0 MCH 30.7 MCHC 33.0 RDW 15.2 Plt Count 191 MPV 8.7 Sodium Potassium Chloride Carbon Dioxide Anion Gap BUN Creatinine Est GFR (CKD-EPI)AfAm Est GFR (CKD-EPI)NonAf POC Glucometer 100 119 Random Glucose Calcium Vitamin B12 RPR Titer 04/28/19 04/28/19 06:50 12:18 WBC RBC Hgb Hct MCV MCH MCHC RDW Plt Count MPV Sodium 142 Potassium 4.3 Chloride 112 H Carbon Dioxide 26 Anion Gap 5 L BUN 20.3 H Creatinine 1.2 Est GFR (CKD-EPI)AfAm 63.97 Est GFR (CKD-EPI)NonAf 55.20 POC Glucometer 103 Random Glucose 128 H Calcium 8.5 Vitamin B12 RPR Titer Active Medications Generic Name Dose Route Start Last Admin Trade Name Freq PRN Reason Stop Dose Admin Acetaminophen 650 mg 04/26/19 17:33 04/26/19 17:41 Tylenol - PO 650 mg Q6H PRN Administration Fever Or Pain Atorvastatin Calcium 40 mg 04/24/19 22:00 04/27/19 21:38 Lipitor - PO 40 mg HS WAYNE Administration Clopidogrel Bisulfate 75 mg 04/23/19 13:00 04/28/19 10:41 Plavix - PO 75 mg DAILY WAYNE Administration Dipyridamole/Aspirin 1 combo 04/25/19 12:30 04/28/19 10:40 Aggrenox - PO 1 combo BID WAYNE Administration Folic Acid 1 mg 04/23/19 13:00 04/28/19 10:41 Folic Acid - PO 1 mg DAILY WAYNE Administration Heparin Sodium (Porcine) 5,000 unit 04/23/19 22:00 04/28/19 06:15 Heparin - SQ 5,000 unit TID WAYNE Administration Sodium Chloride 1,000 mls @ 75 mls/hr 04/26/19 10:30 04/27/19 06:22 Normal Saline - IV 75 mls/hr ASDIR WAYNE Administration Insulin Aspart 1 vial 04/23/19 22:00 04/28/19 06:15 Novolog Vial Sliding Scale - SQ Not Given ACHS [facility] Protocol Latanoprost 1 drop 04/23/19 22:00 04/27/19 21:38 Xalatan 0.005% Eye Drops - OU 1 drop HS WAYNE Administration Metoprolol Succinate 25 mg 04/23/19 13:00 04/27/19 10:25 Toprol Xl - PO 25 mg DAILY WAYNE Administration Pantoprazole Sodium 20 mg 04/23/19 13:00 04/28/19 10:40 Protonix - PO 20 mg DAILY WAYNE Administration Tamsulosin HCl 0.4 mg 04/23/19 22:00 08/22/19 21:37 Flomax - PO 0.4 mg HS WAYNE Administration Thyroid 90 mg 04/23/19 13:00 04/28/19 10:41 Protem Thyroid - PO 90 mg DAILY WAYNE Administration Valsartan 40 mg 04/23/19 13:00 04/28/19 10:41 Diovan - PO 40 mg DAILY WAYNE Administration ASSESSMENT/PLAN: 83M with PMH significant for HTN, HLD, CAD, CHF, , pacemaker, R inguinal sarcoma, anemia presented to the ER after complaints of L sided facial numbness , slurred speech, drooling, and LUE numbness and tingling that started a few hours before presentation. #TIA - 2 brief episodes of hand weakness and slight facial asymmetry, last episode lasted 5 minutes - Neuro consulted (Dr. Lopez) - EEG - CT negative - Lyme AB pending - CTA Head/Neck (no MRI due to PPM): severe stenosis at origin of Rt vert arteryno HD significant stenosis - Carotid duplex: Plaques in RCC and LCC, no HD significant stenosis, flow in both vertebral arteries - EKG: atrial-paced rhythm with prolonged AV conduction, QTc 436, HR 70 - Lipitor 40mg - Dr Baxter consulted #Hx of CAD s/p CABG - Continue Aggrenox, Plavix 75mg #Hx of Aortic Stenosis - Echo: Mild MR, Mod TR, Trace AR, Severe - Previous Echo from 09/24 obtained, showed severe - Cardio consulted (Dr. Bronson): No further cardiac intervention, continue Metoprolol, Plavix, Lipitor - Dr. Monson: PPM interrogated 2 weeks ago, no abnormal findings. Will consider KEYLA outpatient, no further intervention #Headache - Tylenol PRN #Hx of HTN - Valsartan 40mg, Metoprolol 25mg held due to hypotensive episodes #Hx of HLD - Lipitor 40mg #Hx of NIDDM - Hold all oral DM meds. BGM/ISS ACHS. #Hx of Glaucoma - Cont home meds: Travoprost 1 drop OU QD #DVT PE - SCDs - Lovenox 40mg #FEN - N/S for hydration prior to CTA - Diabetic Diet #Dispo - Tele Visit type - Emergency Visit Emergency Visit: Yes ED Registration Date: 04/25/19 Care time: The patient presented to the Emergency Department on the above date and was hospitalized for further evaluation of their emergent condition. - New Patient This patient is new to me today: No - Critical Care Critical Care patient: No - Discharge Referral Referred to [facility] Med [facility].C[facility] No ATTENDING PHYSICIAN STATEMENT I saw and evaluated the patient. I reviewed the resident's note and discussed the case with the resident. I agree with the resident's findings and plan as documented. SUBJECTIVE: OBJECTIVE: ASSESSMENT AND PLAN:
--- NOTE | 2019-04-28 15:25 | PN ---
Teaching Attending Note Name of Resident: Warren Phillips ATTENDING PHYSICIAN STATEMENT I saw and evaluated the patient. I reviewed the resident's note and discussed the case with the resident. I agree with the resident's findings and plan as documented. SUBJECTIVE: no fever or chills. noHA OBJECTIVE: NAD CV : RRR, 3/6 SM at base estefania RUSB. 3/6 SM at LLSB Lungs: CTAB Ext : No edema or erythema neuro : EOMI, round equal pupils, reactive to light, no facial droop. tongue and uvula at mid line. strength 5/5 in upper and lower extremities proximally and distally. sensation to light touch Nl, even in hands. Nl speech . reflexes 1 + biceps and knee jerk bilaterally. atrophy in R hand muscles. decreased abduction of the R hand fingers. ASSESSMENT AND PLAN: 83 y/o man with h/o HTN, hypothyroidism, CAD, CABG, Chronic systolic andidastolic heart failure, high degree AV block, s/p PPM, , R inguinal sarcoma, and other medical problems who presented with slurred speech and LUE numbness 1- Recurrent episodes of Slurred speech and LUE numbness,and facial droop. - w/u neg to date. - patient requests a different neuroloy service. message left with Dr. Valentino office staff - case was d/w Dr. Birmingham, who suggested the possibility of focal seizures - will get EEG - cont aggrenox and plavix - cont statin 2- CAD, HTN: cont meds. 3- DM: cont SSI 4- H/o . 5- H/o chronic Systolic and diastolic heart failure. pasha. Dispo: OC
[2019-04-28] MEDS: ACETAMINOPHEN 325 MG TABLET (FP) PO PRN (16:55)
[2019-04-28 19:08] LABS: HOMOCYSTINE-PLASMA OR SERUM 12.4 umol/L (5.1-13.9)
[2019-04-28] MEDS: TAMSULOSIN HCL 0.4 MG CAP PO SCH (22:16)
[2019-04-28] MEDS: ATORVASTATIN CA 40 MG TABLET (FP) PO SCH (22:16)
[2019-04-28] MEDS: LATANOPROST 0.005% OPHTH SOLN 2.5ML BOTTLE OU SCH (22:20)
[2019-04-29] MEDS: ACETAMINOPHEN 325 MG TABLET (FP) PO PRN ×2 (02:52→14:37)
[2019-04-29] MEDS: SODIUM CHLORIDE 1,000 ML IV SCH ×2 (02:52→12:22)
[2019-04-29] MEDS: INSULIN SLIDING SCALE (NOVOLOG) 1 VIAL SQ SCH ×4 (06:09→19:59)
[2019-04-29] MEDS: HEPARIN NA (PORCINE) 5,000 UNITS/ML 1ML VIAL SQ SCH ×3 (06:11→21:21)
[2019-04-29 08:12] LABS: BLOOD UREA NITROGEN 21.7 mg/dL (7-18); CALCIUM 8.9 mg/dL (8.5-10.1); CREATININE 1.2 mg/dL (0.55-1.3); POTASSIUM 4.2 mmol/L (3.5-5.1)
--- NOTE | 2019-04-29 09:12 | PN ---
Teaching Attending Note Name of Resident: Warren Phillips ATTENDING PHYSICIAN STATEMENT I saw and evaluated the patient. I reviewed the resident's note and discussed the case with the resident. I agree with the resident's findings and plan as documented. SUBJECTIVE: No fever or chills. No BOYER . continue to have numbness in 1st three fingers in his hands. no BOYER . no visual changes. 1 episode of numbness in hand, facail drrop and slurred speech yesterday after noon ( resolved completely at time of resident evaluation ). No recurrence since then OBJECTIVE: NAD CV: RRR, 3/6 SM at base estefania RUSB. 3/6 SM at LLSB Lungs: CTAB Ext : No edema or erythema neuro : EOMI, round equal pupils, reactive to light, no facial droop. tongue and uvula at mid line. strength 5/5 in upper and lower extremities proximally and distally( except decreased abduction of the R hand fingers) . sensation to light touch Nl, even in hands. Nl speech . reflexes 1+ biceps and knee jerk bilaterally. atrophy in R hand muscles. ASSESSMENT AND PLAN: 83 y/o man with h/o HTN, hypothyroidism, CAD, CABG, Chronic systolic andidastolic heart failure, high degree AV block, s/p PPM, , R inguinal sarcoma, and other medical problems who presented with slurred speech and LUE numbness 1- Recurrent episodes of Slurred speech and LUE numbness,and facial droop. - w/u neg to date. - Patient to be seen by Dr. Birmingham today. EEG pending - aside form the recurrent episodes of above sx , he has persistent subjective numbness in median nerve distribution ( ? compression at level of neck, or carpal tunnel, ...) - cont aggrenox and plavix - cont statin - tele with no events 2- CAD, HTN: cont meds. 3- DM: cont SSI 4- H/o . 5- H/o chronic Systolic and diastolic heart failure. pasha. Dispo: OC
[2019-04-29] MEDS: CLOPIDOGREL BISULFATE 75 MG TABLET (FP) PO SCH (09:39)
[2019-04-29] MEDS: metoPROLOL SUCCINATE 25 MG TAB.SR.24H (FP) PO SCH (09:39)
[2019-04-29] MEDS: FOLIC ACID 1 MG TABLET (FP) PO SCH (09:39)
[2019-04-29] MEDS: PANTOPRAZOLE 20 MG TABLET (FP) PO SCH (09:39)
[2019-04-29] MEDS: ASPIRIN/DIPYRIDAMOLE 25 MG/200 MG CAPSULE PO SCH (09:39)
[2019-04-29] MEDS ORDERED: PT OWN MED DRAWER 7, Y5N ONE (09:44)
[2019-04-29] MEDS: THYROID 60 MG TABLET PO SCH (09:48)
--- NOTE | 2019-04-29 10:40 | PN ---
Physical Exam: SUBJECTIVE: Patient seen and examined OBJECTIVE: Patient seen and examined by the bedside, AOx3, no acute events overnight. Vital Signs Period Temp Pulse Resp BP Sys/Stewart Pulse Ox Last 24 Hr 97.5 F-98.2 F 71-87 18-20 96-121/57-74 99 GENERAL: The patient is awake, alert, and fully oriented, in no acute distress. HEAD: Normal with no signs of trauma. EYES: PERRL, extraocular movements intact, sclera anicteric, conjunctiva clear. No ptosis. ENT: Ears normal, nares patent, oropharynx clear without exudates, moist mucous membranes. NECK: Trachea midline, full range of motion, supple. LUNGS: Breath sounds equal, clear to auscultation bilaterally, no wheezes, no crackles, no accessory muscle use. HEART: Irregular rhythm, systolic murmur along RSB ABDOMEN: Soft, nontender, nondistended, normoactive bowel sounds, no guarding, no rebound, no hepatosplenomegaly, no masses. EXTREMITIES: 2+ pulses, warm, well-perfused, no edema. NEUROLOGICAL: No facial asymmetry, no hand drift, no slurring,motor strength 5/ 5 BL in upper as well as lower extremeties, no sensory defects. Cranial nerves II through XII grossly intact. Normal speech, gait not observed. PSYCH: Normal mood, normal affect. SKIN: Warm, dry, normal turgor, no rashes or lesions noted Laboratory Results - last 24 hr 04/24/19 04/28/19 04/28/19 06:00 12:18 16:59 Sodium Potassium Chloride Carbon Dioxide Anion Gap BUN Creatinine Est GFR (CKD-EPI)AfAm Est GFR (CKD-EPI)NonAf POC Glucometer 103 99 Random Glucose Calcium 2-Methylcitric Acid 203 Methylmalonic Acid 167 Homocysteine 12.4 Cystathionine 363 H Reporting Document 1 04/28/19 04/29/19 04/29/19 22:16 06:06 07:15 Sodium 143 Potassium 4.2 Chloride 112 H Carbon Dioxide 25 Anion Gap 6 L BUN 21.7 H Creatinine 1.2 Est GFR (CKD-EPI)AfAm 63.97 Est GFR (CKD-EPI)NonAf 55.20 POC Glucometer 111 159 Random Glucose 149 H Calcium 8.9 2-Methylcitric Acid Methylmalonic Acid Homocysteine Cystathionine Reporting Document 1 Active Medications Generic Name Dose Route Start Last Admin Trade Name Michaelq PRN Reason Stop Dose Admin Acetaminophen 650 mg 04/26/19 17:33 04/29/19 02:52 Tylenol - PO 650 mg Q6H PRN Administration Fever Or Pain Atorvastatin Calcium 40 mg 04/24/19 22:00 04/28/19 22:16 Lipitor - PO 40 mg HS WAYNE Administration Clopidogrel Bisulfate 75 mg 04/23/19 13:00 04/29/19 09:39 Plavix - PO 75 mg DAILY WAYNE Administration Dipyridamole/Aspirin 1 combo 04/25/19 12:30 04/29/19 09:39 Aggrenox - PO 1 combo BID WAYNE Administration Folic Acid 1 mg 04/23/19 13:00 04/29/19 09:39 Folic Acid - PO 1 mg DAILY WAYNE Administration Heparin Sodium (Porcine) 5,000 unit 04/23/19 22:00 04/29/19 06:11 Heparin - SQ 5,000 unit TID WAYNE Administration Sodium Chloride 1,000 mls @ 50 mls/hr 04/29/19 10:30 Normal Saline - IV 04/30/19 10:30 ASDIR WAYNE Insulin Aspart 1 vial 04/23/19 22:00 04/29/19 06:09 Novolog Vial Sliding Scale - SQ Not Given ACHS [facility] Protocol Latanoprost 1 drop 04/23/19 22:00 04/28/19 22:20 Xalatan 0.005% Eye Drops - OU 1 drop HS WAYNE Administration Pantoprazole Sodium 20 mg 04/23/19 13:00 04/29/19 09:39 Protonix - PO 20 mg DAILY WAYNE Administration Tamsulosin HCl 0.4 mg 04/23/19 22:00 04/28/19 22:16 Flomax - PO 0.4 mg HS WAYNE Administration Thyroid 90 mg 04/23/19 13:00 04/29/19 09:48 [place] Thyroid - PO 90 mg DAILY WAYNE Administration Valsartan 40 mg 04/29/19 10:31 Diovan - PO DAILY [facility] ASSESSMENT/PLAN: 83M with PMH significant for HTN, HLD, CAD, CHF, , pacemaker, R inguinal sarcoma, anemia presented to the ER after complaints of L sided facial numbness , slurred speech, drooling, and LUE numbness and tingling that started a few hours before presentation, admitted for TIA. #TIA - Neuro consulted (Dr. 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 Monson: Will consider KEYLA outpatient, no further intervention #Headache - Tylenol PRN #Hx of HTN - Valsartan 40mg, Metoprolol 25mg #Hx of HLD - Lipitor 40mg #Hx of NIDDM - BGM changed to before meals BID - ISS Novolog #Hx of Glaucoma - Cont home meds: Travoprost 1 drop OU QD #DVT PE - SCDs - Lovenox 40mg #FEN - N/S - Diabetic Diet #Dispo - Tele Visit type - Emergency Visit Emergency Visit: Yes ED Registration Date: 04/25/19 Care time: The patient presented to the Emergency Department on the above date and was hospitalized for further evaluation of their emergent condition. - New Patient This patient is new to me today: No - Critical Care Critical Care patient: No - Discharge Referral Referred to [facility] Med P.C.: No ATTENDING PHYSICIAN STATEMENT I saw and evaluated the patient. I reviewed the resident's note and discussed the case with the resident. I agree with the resident's findings and plan as documented. SUBJECTIVE: OBJECTIVE: ASSESSMENT AND PLAN:
--- NOTE | 2019-04-29 12:03 | PN ---
Progress Note (short form) - Note Progress Note: Chief Complaint: Events noted, notes reviewed, reports persistent left hand parasthesia although clinically improved, denies any slurred speech, sinus rhythm is noted, denies any chest pain or dyspnea History of Present Illness: Seen and examined on telemetry. Events noted, notes reviewed, reports persistent left hand parasthesia although clinically improved, denies any slurred speech, sinus rhythm is noted, denies any chest pain or dyspnea Above recurrent presentation is unlikely to be TIA/CVA- unclear etiology consider spinal tap for CSF fluid evaluation, to contact [employer] to see if patient's device is MRI conditional or retro- MRI conditional Pacemaker interrogation note no PAF noted/no mode switches 12/25/2018 LHC: normal LM, 100% prox LAD, LAD-D1 100%, LCx-OM 100%, mid LCx 50% , prox RCA 100%, patent CORTEZ->LAD with small distal vessel, patent free ROSA-> distal RCA, SVG->LCx occluded from initial surgery, SVG-OM1 patent, SVG->OM2 patent, SVG->LAD-D2 closed culprit for acute event 12/26/2018 Echocardiography revealed normal LV size with moderate reduction in LVEF 40%, severe dilatation of RV with reduced systolic function, moderate MG 16 mmHg, moderate TR Medications: Current Medications Acetaminophen (Tylenol -) 650 mg PO Q6H PRN PRN Reason: Fever Or Pain Last Admin: 04/29/19 02:52 Dose: 650 mg Atorvastatin Calcium (Lipitor -) 40 mg PO HS [facility] Last Admin: 04/28/19 22:16 Dose: 40 mg Clopidogrel Bisulfate (Plavix -) 75 mg PO DAILY [facility] Last Admin: 04/29/19 09:39 Dose: 75 mg Dipyridamole/Aspirin (Aggrenox -) 1 combo PO BID [facility] Last Admin: 04/29/19 09:39 Dose: 1 combo Folic Acid (Folic Acid -) 1 mg PO DAILY [facility] Last Admin: 04/29/19 09:39 Dose: 1 mg Heparin Sodium (Porcine) (Heparin -) 5,000 unit SQ TID [facility] Last Admin: 04/29/19 06:11 Dose: 5,000 unit Sodium Chloride (Normal Saline -) 1,000 mls @ 50 mls/hr IV ASDIR [facility] Stop: 04/30/19 10:30 Insulin Aspart (Novolog Vial Sliding Scale -) 1 vial SQ ACHS [facility]; Protocol Last Admin: 04/29/19 06:09 Dose: Not Given Latanoprost (Xalatan 0.005% Eye Drops -) 1 drop OU HS [facility] Last Admin: 04/28/19 22:20 Dose: 1 drop Pantoprazole Sodium (Protonix -) 20 mg PO DAILY [facility] Last Admin: 04/29/19 09:39 Dose: 20 mg Tamsulosin HCl (Flomax -) 0.4 mg PO HS [facility] Last Admin: 04/28/19 22:16 Dose: 0.4 mg Thyroid (May Thyroid -) 90 mg PO DAILY [facility] Last Admin: 04/29/19 09:48 Dose: 90 mg Valsartan (Diovan -) 40 mg PO DAILY [facility] Review of Systems Constitutional: denies: Chills or Fever Cardiovascular: as noted above Respiratory: denies: Cough or Sputum Production Gastrointestinal: denies: Nausea, Vomiting, Diarrhea, Constipation or Abdominal Pain Genitourinary: denies: Dysuria Musculoskeletal: denies: Joint Pain Neurological: denies: Dizziness or Headache but reports persistent left hand parasthesia Vital Signs: Last Vital Signs Temp Pulse Resp BP Pulse Ox 98.1 F 80 18 96/58 L 99 04/29/19 06:00 04/29/19 06:00 04/29/19 06:00 04/29/19 06:00 04/28/19 21:00 Intake & Output 04/26/19 04/27/19 04/28/19 04/29/19 23:59 23:59 23:59 23:59 Intake Total 3417.5 1590 1910 240 Output Total 700 1000 Balance 2717.5 590 1910 240 Constitutional: No Distress, Calm, Thin Respiratory: Clear to A&P Bilaterally Cardiovascular: S1 S2 Regular Rate and Rhythm Grade 2/6 MEIR Gastrointestinal: Soft Benign Normal Bowel Sounds Ext: No Edema Labs: CBC, BMP 04/28/19 06:50 04/29/19 07:15 Hepatic Panel Total Bilirubin 0.7 mg/dL (0.2-1) 04/24/19 06:00 AST 19 U/L (15-37) 04/24/19 06:00 ALT 24 U/L (13-61) 04/24/19 06:00 Alkaline Phosphatase 75 U/L (45-117) 04/24/19 06:00 Albumin 3.7 g/dl (3.4-5.0) 04/24/19 06:00 Assessment/Plan ASSESSMENT: 1. Recurrent left hand parasthesia with intermittent slurred speech etiology to be determined, unlikely to be cerebro-vascular event/TIA 2. CAD post re-op CABG angina pectoris, clinically stable 3. Systolic/diastolic LV dysfunction class 0-1 NYHA classification LV failure, currently euvolemic/compensated 4. Aortic valve stenosis 5. HTN/HCVD 6. Hypercholesterolemia 7. AV block post PPM 8. Tricuspid valve regurgitation and pulmonary HTN 9. Carotid stenosis 10. Thoracic aortic aneurysm (ascending 4.0 cm) 11. 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 Continue Toprol XL 2. Continue Diovan 3. Continue Lipitor 4. continue Aggrenox and Plavix 5. KEYLA was recommended for further evaluation of source of embolus but to be deferred considering the above noted presentation, discussed in detail with the patient with the at the bedside 6. Await neurology F/U regarding further evaluation/intervention Hanna Monson M.D.
[2019-04-29] MEDS: VALSARTAN 40 MG TABLET (FP) PO SCH (12:33)
--- NOTE | 2019-04-29 13:05 | HP ---
Admitting History and Physical - Past Medical History Cardiovascular: Yes: Aneurysm (TAA (ascending)), Aortic Stenosis, CAD, CHF, HTN , Hyperlipdemia, LA, Mitral Insufficiency, Other (pacemaker) Renal/: Yes: BPH Heme/Onc: Yes: Anemia Endocrine: Yes: Hypothyroidism - Past Surgical History Past Surgical History: Yes: CABG, Permanent Pacemaker - Smoking History Smoking history: Never smoked Have you smoked in the past 12 months: No Aproximately how many cigarettes per day: 0 - Alcohol/Substance Use Hx Alcohol Use: No History of Substance Use: reports: None - Social History ADL: Independent History of Recent Travel: No Home Medications - Allergies Allergies/Adverse Reactions: Allergies Allergy/AdvReac Type Severity Reaction Status Date / Time Penicillins Allergy Verified 04/23/19 08:59 - Home Medications Home Medications: Ambulatory Orders Clopidogrel Bisulfate [Clopidogrel] 75 mg PO DAILY 10/31/15 Folic Acid 1 mg PO DAILY 10/31/15 Metoprolol Succinate [Toprol XL -] 25 mg PO DAILY 10/31/15 Omeprazole 20 mg PO DAILY 10/31/15 Tamsulosin HCl 0.4 mg PO HS 10/31/15 Thyroid,Pork [[place] Thyroid] 90 mg PO DAILY 10/31/15 Travoprost [Travatan Z] 1 drop OU DAILY 10/31/15 Metformin HCl [Glucophage] 500 mg PO BID 04/23/19 Pantoprazole Sodium [Protonix -] 20 mg PO DAILY 04/23/19 Valsartan [Diovan] 40 mg PO DAILY 04/23/19 Aspirin/Dipyridamole [Aggrenox -] 1 combo PO BID 28 Days #56 combo 04/27/19 Atorvastatin Ca [Lipitor] 40 mg PO HS 30 Days #30 tablet 04/27/19 Physical Examination Vital Signs: Vital Signs Temperature 98.1 F 04/29/19 10:00 Pulse Rate 75 04/29/19 10:00 Respiratory Rate 18 04/29/19 10:00 Blood Pressure 92/64 04/29/19 10:00 O2 Sat by Pulse Oximetry (%) 99 04/29/19 09:00 Labs: CBC, BMP 04/28/19 06:50 04/29/19 07:15 Assessment/Plan cc Recurrent episode of left hand numbness and slurring of speech x everyday since admission HPI 83 year old male history of CAD s/p CABG, CHF, Aortic stenosis, pacemaker, htn. Patient came with slurring of speech and left hand numbness . His ct head , cta of neck, brain and carotid ultraosound was normal. He is having these stereo typical episode everyday. Patient denies any trigger or any other focal neurological symptoms. Patient have these symptoms lated for few minute. His ct head was noraml. He does not have any history of head trauma, brain tumor, epilepsy or brain surgery. Patient cant get mri of brain. His neurological exam remain normal . PAST MEDICAL HISTORY: As per HPI PAST SURGICAL HISTORY: CABG (quadruple bypass in 1999; with revision) Resection of R inguinal sarcoma (2 years ago) PPM placement Cholecystectomy Social History: Smoking: Denies Alcohol: Denies Drugs: Denies Family History: Denies Allergies Penicillins Allergy (Verified 04/23/19 08:59) HOME MEDICATIONS: Home Medications Medication Instructions Recorded Aspirin [ASA -] 81 mg PO DAILY 10/31/15 Clopidogrel Bisulfate [Clopidogrel] 75 mg PO DAILY 10/31/15 Folic Acid 1 mg PO DAILY 10/31/15 Metoprolol Succinate [Toprol XL -] 25 mg PO DAILY 10/31/15 Omeprazole 20 mg PO DAILY 10/31/15 Tamsulosin HCl 0.4 mg PO HS 10/31/15 Thyroid,Pork [[place] Thyroid] 90 mg PO DAILY 10/31/15 Travoprost [Travatan Z] 1 drop OU DAILY 10/31/15 Metformin HCl [Glucophage] 500 mg PO BID 04/23/19 Pantoprazole Sodium [Protonix -] 20 mg PO DAILY 04/23/19 Valsartan [Diovan] 40 mg PO DAILY 04/23/19 ROS, FH reviewed in chart NEUROLOGICAL EXAMINATION Alert oriented x 3, speech is noraml, neck is supple cn eomi, pupils reactive, no face asymmetry,vf normal motor 5/5 all normal sensation is normal reflex are diminished generalized ct head andcarotid ultrasound is noraml Assessment/Plan Sterotypical episode of left hand numbness and speech disturbances, very brief and patient is already on maximal meidcal therapy, work up has been negative, and no cardiac etiolgy was identified plan: suggest to take aggrenox one tab po oncea day and continue plavix once a day - increase lipitor to 80 mg once a day - add keppra 250 mg po bid - seizure precautions were discussed - cant get mri of brain and suggest to repeat ct head with contrast in 2-4 week - if symptoms recurs , keppra can be increased further - an eeg can be obtained Thanking you so much Kieran Birmingham MD
[2019-04-29] MEDS: levETIRAcetam 250 MG TABLET (FP) PO SCH ×2 (13:25→21:20)
[2019-04-29] MEDS: ATORVASTATIN CA 40 MG TABLET (FP) PO SCH (21:20)
[2019-04-29] MEDS: TAMSULOSIN HCL 0.4 MG CAP PO SCH (21:20)
[2019-04-29] MEDS: LATANOPROST 0.005% OPHTH SOLN 2.5ML BOTTLE OU SCH (21:21)
[2019-04-30] MEDS: HEPARIN NA (PORCINE) 5,000 UNITS/ML 1ML VIAL SQ SCH ×2 (05:30→15:37)
[2019-04-30] MEDS: SODIUM CHLORIDE 1,000 ML IV SCH ×2 (05:34→15:56)
[2019-04-30] MEDS: ACETAMINOPHEN 325 MG TABLET (FP) PO PRN ×2 (05:34→23:28)
[2019-04-30] MEDS: INSULIN SLIDING SCALE (NOVOLOG) 1 VIAL SQ SCH ×2 (06:37→18:19)
--- NOTE | 2019-04-30 10:13 | PN ---
Progress Note (short form) - Note Progress Note: Chief Complaint: Events noted, notes reviewed, denies any recurrent left hand parasthesia, denies any slurred speech, sinus rhythm is noted, denies any chest pain or dyspnea, neurology second opinion noted History of Present Illness: Seen and examined on telemetry. Events noted, notes reviewed, denies any recurrent left hand parasthesia, denies any slurred speech, sinus rhythm is noted, denies any chest pain or dyspnea, neurology second opinion noted As outlined in prior notes above recurrent presentation is unlikely to be TIA/ CVA- unclear etiology consider spinal tap for CSF fluid evaluation, plan to contact [employer] this coming week to see if patient's device is MRI conditional or retro- MRI conditional Pacemaker interrogation note no PAF noted/no mode switches 12/25/2018 LHC: normal LM, 100% prox LAD, LAD-D1 100%, LCx-OM 100%, mid LCx 50% , prox RCA 100%, patent CORTEZ->LAD with small distal vessel, patent free ROSA-> distal RCA, SVG->LCx occluded from initial surgery, SVG-OM1 patent, SVG->OM2 patent, SVG->LAD-D2 closed culprit for acute event 12/26/2018 Echocardiography revealed normal LV size with moderate reduction in LVEF 40%, severe dilatation of RV with reduced systolic function, moderate MG 16 mmHg, moderate TR Medications: Current Medications Acetaminophen (Tylenol -) 650 mg PO Q6H PRN PRN Reason: Fever Or Pain Last Admin: 04/30/19 05:34 Dose: 650 mg Atorvastatin Calcium (Lipitor -) 80 mg PO HS [facility] Last Admin: 04/29/19 21:20 Dose: 80 mg Clopidogrel Bisulfate (Plavix -) 75 mg PO DAILY [facility] Last Admin: 04/29/19 09:39 Dose: 75 mg Dipyridamole/Aspirin (Aggrenox -) 1 combo PO DAILY [facility] Folic Acid (Folic Acid -) 1 mg PO DAILY [facility] Last Admin: 04/29/19 09:39 Dose: 1 mg Heparin Sodium (Porcine) (Heparin -) 5,000 unit SQ TID [facility] Last Admin: 04/30/19 05:30 Dose: 5,000 unit Sodium Chloride (Normal Saline -) 1,000 mls @ 50 mls/hr IV ASDIR [facility] Stop: 04/30/19 10:30 Last Admin: 04/30/19 05:34 Dose: 50 mls/hr Insulin Aspart (Novolog Vial Sliding Scale -) [facility] Protocol Last Admin: 04/30/19 06:37 Dose: Not Given Latanoprost (Xalatan 0.005% Eye Drops -) 1 drop OU HS [facility] Last Admin: 04/29/19 21:21 Dose: 1 drop Levetiracetam (Keppra -) 250 mg PO BID [facility] Last Admin: 04/29/19 21:20 Dose: 250 mg Pantoprazole Sodium (Protonix -) 20 mg PO DAILY [facility] Last Admin: 04/29/19 09:39 Dose: 20 mg Tamsulosin HCl (Flomax -) 0.4 mg PO HS [facility] Last Admin: 04/29/19 21:20 Dose: 0.4 mg Thyroid ([place] Thyroid -) 90 mg PO DAILY [facility] Last Admin: 04/29/19 09:48 Dose: 90 mg Valsartan (Diovan -) 40 mg PO DAILY [facility] Review of Systems Constitutional: denies: Chills or Fever Cardiovascular: as noted above Respiratory: denies: Cough or Sputum Production Gastrointestinal: denies: Nausea, Vomiting, Diarrhea, Constipation or Abdominal Pain Genitourinary: denies: Dysuria Musculoskeletal: denies: Joint Pain Neurological: denies: Dizziness or Headache but reports persistent left hand parasthesia Vital Signs: Last Vital Signs Temp Pulse Resp BP Pulse Ox 97.9 F 80 20 123/56 L 98 04/30/19 05:51 04/30/19 05:51 04/30/19 05:51 04/30/19 05:51 04/29/19 21:00 Intake & Output 04/27/19 04/28/19 04/29/19 04/30/19 23:59 23:59 23:59 23:59 Intake Total 1590 1910 634 470 Output Total 1000 200 480 Balance 590 1910 434 -10 Constitutional: No Distress, Calm, Thin Respiratory: Clear to A&P Bilaterally Cardiovascular: S1 S2 Regular Rate and Rhythm Grade 2/6 MEIR Gastrointestinal: Soft Benign Normal Bowel Sounds Ext: No Edema Labs: CBC, BMP 04/28/19 06:50 04/29/19 07:15 Hepatic Panel Total Bilirubin 0.7 mg/dL (0.2-1) 04/24/19 06:00 AST 19 U/L (15-37) 04/24/19 06:00 ALT 24 U/L (13-61) 04/24/19 06:00 Alkaline Phosphatase 75 U/L (45-117) 04/24/19 06:00 Albumin 3.7 g/dl (3.4-5.0) 04/24/19 06:00 INR, PTT INR 1.12 (0.83-1.09) H 04/23/19 09:15 Assessment/Plan ASSESSMENT: 1. Recurrent left hand parasthesia with intermittent slurred speech etiology to be determined, unlikely to be cerebro-vascular event/TIA, seizure disorder considered in the differential diagnosis 2. CAD post re-op CABG angina pectoris, clinically stable 3. Systolic/diastolic LV dysfunction class 0-1 NYHA classification LV failure, currently euvolemic/compensated 4. Aortic valve stenosis 5. HTN/HCVD 6. Hypercholesterolemia 7. AV block post PPM 8. Tricuspid valve regurgitation and pulmonary HTN 9. Carotid stenosis 10. Thoracic aortic aneurysm (ascending 4.0 cm) 11. 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 Continue Toprol XL 2. Continue Diovan 3. Continue Lipitor 4. Continue Plavix and resume ASA instead of Aggrenox 5. As outlined KEYLA was recommended for further evaluation of source of embolus but to be deferred considering the above noted presentation, discussed in detail with the patient and his who was again at the bedside 6. D/C home as per the primary team, no additional cardiovascular evaluation is planned Hanna Monson M.D.
[2019-04-30] MEDS: VALSARTAN 40 MG TABLET (FP) PO SCH (10:29)
[2019-04-30] MEDS: ASPIRIN/DIPYRIDAMOLE 25 MG/200 MG CAPSULE PO SCH (10:29)
[2019-04-30] MEDS: levETIRAcetam 250 MG TABLET (FP) PO SCH ×2 (10:29→22:14)
[2019-04-30] MEDS: CLOPIDOGREL BISULFATE 75 MG TABLET (FP) PO SCH (10:29)
[2019-04-30] MEDS: THYROID 60 MG TABLET PO SCH (10:30)
[2019-04-30] MEDS: FOLIC ACID 1 MG TABLET (FP) PO SCH (10:30)
[2019-04-30] MEDS: PANTOPRAZOLE 20 MG TABLET (FP) PO SCH (10:30)
[2019-04-30] MEDS ORDERED: PT OWN MED DRAWER 7, Y5N ONE ×3 (10:47→15:46)
[2019-04-30] MEDS ORDERED: oxyCODONE HCL 5 MG TABLET PO ONE (15:10)
--- NOTE | 2019-04-30 15:14 | PN ---
Progress Note (short form) - Note Progress Note: Subjective: seen at 9 am No fever or chills. No BOYER .no weakness, numbnessin R hand is better Objective: Vital Signs: Last Vital Signs Temp Pulse Resp BP Pulse Ox 98.3 F 72 20 99/61 98 04/30/19 13:43 04/30/19 13:43 04/30/19 13:43 04/30/19 13:43 04/29/19 21:00 Laboratory Results - last 24 hr 04/27/19 04/29/19 04/30/19 16:50 17:13 05:31 POC Glucometer 95 98 Lyme Screen IgG & IgM <0.91 04/30/19 11:51 POC Glucometer 107 Lyme Screen IgG & IgM Physical Exam: NAD CV: RRR, 3/6 SM at base estefania RUSB. 3/6 SM at LLSB Lungs: CTAB Ext : No edema or erythema neuro : EOMI, round equal pupils, reactive to light, no facial droop. tongue and uvula at mid line. strength 5/5 in upper and lower extremities proximally and distally( except decreased abduction of the R hand fingers) . sensation to light touch Nl, even in hands. Nl speech . reflexes 1+ biceps and knee jerk bilaterally. atrophy in R hand muscles. ASSESSMENT AND PLAN: 83 y/o man with h/o HTN, hypothyroidism, CAD, CABG, Chronic systolic andidastolic heart failure, high degree AV block, s/p PPM, , R inguinal sarcoma, and other medical problems who presented with slurred speech and LUE numbness 1- Recurrent episodes of Slurred speech and LUE numbness,and facial droop. possible focal seizures -cont keppra - cont lipitor and Aggrenox and plavix at current doses - no events on tele - EEG tomorrow - f/u with card and neuro for KEYLA and further eval 2- CAD, HTN: cont meds. 3- DM: cont SSI 4- H/o . 5- H/o chronic Systolic and diastolic heart failure. sable. Dispo: HLOC Visit type - Emergency Visit Emergency Visit: Yes ED Registration Date: 04/25/19 Care time: The patient presented to the Emergency Department on the above date and was hospitalized for further evaluation of their emergent condition. - New Patient This patient is new to me today: No - Critical Care Critical Care patient: No
[2019-04-30] MEDS: AMOXICILLIN 500 MG CAPSULE (FP) PO SCH ×2 (16:15→22:14)
[2019-04-30] MEDS: ATORVASTATIN CA 40 MG TABLET (FP) PO SCH (22:14)
[2019-04-30] MEDS: TAMSULOSIN HCL 0.4 MG CAP PO SCH (22:14)
[2019-04-30] MEDS: LATANOPROST 0.005% OPHTH SOLN 2.5ML BOTTLE OU SCH (22:15)
[2019-04-30] MEDS ORDERED: SODIUM CHLORIDE 500 ML IV STA (22:43)
[2019-05-01 05:55] LABS: BASO % 0.2 % (0-2.0); EOS % 3.3 % (0-4.5); HEMATOCRIT 34.1 % (35.4-49); HEMOGLOBIN 11.4 GM/dL (11.7-16.9); LYMPH % 33.1 % (8-40); MCH 30.9 pg (25.7-33.7); MCHC 33.4 g/dl (32.0-35.9); MEAN CELL VOLUME 92.5 fl (80-96); MEAN PLT VOLUME 8.9 fl (7.5-11.1); MONO % 8.6 % (3.8-10.2); NEUT % 54.8 % (42.8-82.8); PLATELET COUNT 182 K/MM3 (134-434); RBC 3.69 M/mm3 (4.00-5.60); WHITE BLOOD COUNT 6.2 K/mm3 (4.0-10.0)
[2019-05-01] MEDS ORDERED: PT OWN MED DRAWER 7, Y5N ONE (06:33)
[2019-05-01] MEDS: INSULIN SLIDING SCALE (NOVOLOG) 1 VIAL SQ SCH (06:43)
--- NOTE | 2019-05-01 09:52 | PN ---
Progress Note, Physician Chief Complaint: Events noted Awake and alert. Not in distress History of Present Illness: Patient was seen and examined. Chart was reviewed Left had paresthesia Denies chest pain, SOB or palpitations - Current Medication List Current Medications: Active Medications Acetaminophen (Tylenol -) 650 mg PO Q6H PRN PRN Reason: Fever Or Pain Last Admin: 04/30/19 23:28 Dose: 650 mg Amoxicillin (Amoxicillin -) 500 mg PO TID [facility] Last Admin: 04/30/19 22:14 Dose: 500 mg Atorvastatin Calcium (Lipitor -) 80 mg PO HS [facility] Last Admin: 04/30/19 22:14 Dose: 80 mg Clopidogrel Bisulfate (Plavix -) 75 mg PO DAILY [facility] Last Admin: 04/30/19 10:29 Dose: 75 mg Dipyridamole/Aspirin (Aggrenox -) 1 combo PO DAILY [facility] Last Admin: 04/30/19 10:29 Dose: 1 combo Folic Acid (Folic Acid -) 1 mg PO DAILY [facility] Last Admin: 04/30/19 10:30 Dose: 1 mg Insulin Aspart (Novolog Vial Sliding Scale -) 1 vial SQ BIDAC [facility]; Protocol Last Admin: 05/01/19 06:43 Dose: Not Given Latanoprost (Xalatan 0.005% Eye Drops -) 1 drop OU HS [facility] Last Admin: 04/30/19 22:15 Dose: 1 drop Levetiracetam (Keppra -) 250 mg PO BID [facility] Last Admin: 04/30/19 22:14 Dose: 250 mg Pantoprazole Sodium (Protonix -) 20 mg PO DAILY [facility] Last Admin: 04/30/19 10:30 Dose: 20 mg Tamsulosin HCl (Flomax -) 0.4 mg PO HS [facility] Last Admin: 04/30/19 22:14 Dose: 0.4 mg Thyroid ([place] Thyroid -) 90 mg PO DAILY [facility] Last Admin: 04/30/19 10:30 Dose: 90 mg Valsartan (Diovan -) 40 mg PO DAILY [facility] Last Admin: 04/30/19 10:29 Dose: 40 mg - Objective Vital Signs: Vital Signs Temperature 97.5 F L 05/01/19 09:22 Pulse Rate 75 05/01/19 09:22 Respiratory Rate 18 05/01/19 09:22 Blood Pressure 112/67 05/01/19 09:22 O2 Sat by Pulse Oximetry (%) 98 04/30/19 21:00 Eyes: Yes: PERRL HENT: Yes: Atraumatic Neck: Yes: Supple Cardiovascular: Yes: Regular Rate and Rhythm, Murmur (MEIR), S1, S2 Respiratory: Yes: CTA Bilaterally Gastrointestinal: Yes: Normal Bowel Sounds, Soft. No: Tenderness Edema: No Additional Findings/Remarks: Review of Systems Constitutional: denies: Chills or Fever Cardiovascular: denies: chest pain, SOB, palpitations Respiratory: denies: Cough, sputum, hemoptysis Gastrointestinal: denies: Nausea, Vomiting, Diarrhea, Constipation or Abdominal Pain Genitourinary: denies: Dysuria Musculoskeletal: denies: Joint Pain Neurological: denies: Dizziness or Headache denies: seizure, syncope Labs: CBC, BMP 05/01/19 05:00 04/29/19 07:15 Problem List - Problems (1) Systolic dysfunction without heart failure Code(s): I51.89 - OTHER ILL-DEFINED HEART DISEASES (2) Transient ischemic attack Code(s): G45.9 - TRANSIENT CEREBRAL ISCHEMIC ATTACK, UNSPECIFIED (3) Aortic stenosis Code(s): I35.0 - NONRHEUMATIC AORTIC (VALVE) STENOSIS Qualifiers: Cardiac valve disease etiology: nonrheumatic Qualified Code(s): I35.0 - Nonrheumatic aortic (valve) stenosis (4) CAD (coronary artery disease) Code(s): I25.10 - ATHSCL HEART DISEASE OF [place] CORONARY ARTERY W/O ANG PCTRS Qualifiers: Coronary Disease-Associated Artery/Lesion type: [place] artery [place] vs. transplanted heart: [place] heart Associated angina: without angina Qualified Code(s): I25.10 - Atherosclerotic heart disease of [place] coronary artery without angina pectoris (5) Diastolic dysfunction without heart failure Code(s): I51.9 - HEART DISEASE, UNSPECIFIED (6) History of permanent cardiac pacemaker placement Code(s): Z95.0 - PRESENCE OF CARDIAC PACEMAKER (7) Hx of CABG Code(s): Z95.1 - PRESENCE OF AORTOCORONARY BYPASS GRAFT (8) Hyperlipidemia Code(s): E78.5 - HYPERLIPIDEMIA, UNSPECIFIED Qualifiers: Hyperlipidemia type: pure hypercholesterolemia Qualified Code(s): E78.00 - Pure hypercholesterolemia, unspecified; E78.0 - Pure hypercholesterolemia (9) Hypertension Code(s): I10 - ESSENTIAL (PRIMARY) HYPERTENSION Qualifiers: Hypertension type: essential hypertension Qualified Code(s): I10 - Essential (primary) hypertension (10) Hypothyroidism Code(s): E03.9 - HYPOTHYROIDISM, UNSPECIFIED Qualifiers: Hypothyroidism type: unspecified Qualified Code(s): E03.9 - Hypothyroidism , unspecified (11) Pulmonary hypertension Code(s): I27.2 - OTHER SECONDARY PULMONARY HYPERTENSION * DO NOT USE * (12) History of myocardial infarction Code(s): I25.2 - OLD MYOCARDIAL INFARCTION Assessment/Plan 1. Recurrent left hand parasthesia with intermittent slurred speech etiology to be determined 2. CAD post re-op CABG angina pectoris, clinically stable 3. Systolic/diastolic LV dysfunction class 0-1 NYHA classification LV failure, currently euvolemic/compensated 4. Aortic valve stenosis 5. HTN/HCVD 6. Hypercholesterolemia 7. AV block post PPM ([employer]) 8. Tricuspid valve regurgitation and pulmonary HTN 9. Carotid stenosis 10. Thoracic aortic aneurysm (ascending 4.0 cm) 11. 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 Continue Toprol XL and Diovan 2. Continue Lipitor 3. Continue Plavix and resume ASA instead of Aggrenox 4. As outlined KEYLA was recommended for further evaluation of source of embolus - timing is to be further defined pending clinical condition 5. Neuro input noted. Check if PPM is MRI compatible Further plans are to follow Celestino Evans MD
[2019-05-01] MEDS: VALSARTAN 40 MG TABLET (FP) PO SCH (10:22)
[2019-05-01] MEDS: PANTOPRAZOLE 20 MG TABLET (FP) PO SCH (10:22)
[2019-05-01] MEDS: FOLIC ACID 1 MG TABLET (FP) PO SCH (10:22)
[2019-05-01] MEDS: CLOPIDOGREL BISULFATE 75 MG TABLET (FP) PO SCH (10:22)
[2019-05-01] MEDS: levETIRAcetam 250 MG TABLET (FP) PO SCH (10:23)
[2019-05-01] MEDS: ASPIRIN/DIPYRIDAMOLE 25 MG/200 MG CAPSULE PO SCH (10:24)
[2019-05-01] MEDS: THYROID 60 MG TABLET PO SCH (10:25)
[2019-05-01] MEDS: AMOXICILLIN 500 MG CAPSULE (FP) PO SCH (10:25)
--- NOTE | 2019-05-01 13:59 | PN ---
Teaching Attending Note Name of Resident: Nandini Stewart ATTENDING PHYSICIAN STATEMENT I saw and evaluated the patient. I reviewed the resident's note and discussed the case with the resident. I agree with the resident's findings and plan as documented. SUBJECTIVE: No fever or chills. No PAin , no dizziness. numbness is the same in L hand . No BOYER OBJECTIVE: NAD CV: RRR, 3/6 SM at base estefania RUSB. 3/6 SM at LLSB Lungs: CTAB Ext : No edema or erythema neuro : EOMI, round equal pupils, reactive to light, no facial droop. tongue and uvula at mid line. strength 5/5 in upper and lower extremities proximally and distally( except decreased abduction of the R hand fingers) . sensation to light touch Nl, even in hands. Nl speech . reflexes 1+ biceps and knee jerk bilaterally. atrophy in R hand muscles. ASSESSMENT AND PLAN: 83 y/o man with h/o HTN, hypothyroidism, CAD, CABG, Chronic systolic andidastolic heart failure, high degree AV block, s/p PPM, , R inguinal sarcoma, and other medical problems who presented with slurred speech and LUE numbness 1- Recurrent episodes of Slurred speech and LUE numbness,and facial droop. possible focal seizures -cont keppra - cont lipitor and change aggrenox to ASPirin . d/w neuro - no events on tele - EEG done , results to be followed as out pt - f/u with card and neuro for KEYLA and further eval 2- CAD, HTN: cont meds. despite borderline BP, Dr.. Evans prefers to cont metoprolol until f/u with card 3- DM: resume metformin at dc 4-probable R otitis Media: cont amoxicilin x 5 days . 5- H/o chronic Systolic and diastolic heart failure. sable. Dispo: DC home . declined VNS.
[2019-05-01] MEDS: ACETAMINOPHEN 325 MG TABLET (FP) PO PRN (14:07)
[2019-05-01 14:43] VITALS: BP 110/55; PULSE 80; TEMP 98.6
--- NOTE | 2019-05-01 18:15 | DS ---
Physical Exam: SUBJECTIVE: Patient seen and examined. Patient had asymptomatic episodes of hypotension. OBJECTIVE: no acute distress observed Vital Signs Period Temp Pulse Resp BP Sys/Stewart Pulse Ox Last 24 Hr 97.5 F-98.6 F 70-80 18-18 89-112/53-67 98-98 PHYSICAL EXAM GENERAL: The patient is awake, alert, and fully oriented, in no acute distress. HEAD: Normal with healed scar with no signs of trauma. EYES: PERRL, extraocular movements intact, sclera anicteric, conjunctiva clear. ENT: Ears normal, nares patent, oropharynx clear without exudates, moist mucous membranes. NECK: Trachea midline, full range of motion, supple. LUNGS: Breath sounds equal, clear to auscultation bilaterally, no wheezes, no crackles, no accessory muscle use. HEART: Regular rate and rhythm, S1, S2 with crescendo decrescendo murmur in the upper right sternal border, with no rub or gallop. ABDOMEN: Soft, nontender, nondistended, normoactive bowel sounds, no guarding, no rebound, no hepatosplenomegaly, no masses. EXTREMITIES: 2+ pulses, warm, well-perfused, no edema. NEUROLOGICAL: Cranial nerves II through XII grossly intact. Normal speech, gait not observed. Motor 5/5 in all extremities with mild right hand weakness, sensory intact. PSYCH: Normal mood, normal affect. SKIN: Warm, dry, normal turgor, no rashes or lesions noted. LABS Laboratory Results - last 24 hr 05/01/19 05/01/19 05:00 06:38 WBC 6.2 RBC 3.69 L Hgb 11.4 L Hct 34.1 L MCV 92.5 MCH 30.9 MCHC 33.4 RDW 15.0 Plt Count 182 MPV 8.9 Absolute Neuts (auto) 3.4 Neutrophils % 54.8 Lymphocytes % 33.1 Monocytes % 8.6 Eosinophils % 3.3 Basophils % 0.2 Moderate atrophy. No gross evidence of a focal intracranial lesion or hemorrhage is seen. Correlate clinically to determine further evaluation and follow-up. Nucleated RBC % CTA neck No aneurysm is seen No evidence of AVM. No evidence of intracranial enhancing lesions. No CT evidence of acute territorial ischemic changes. Patent major arterial vessels at the [place] of [place]. 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 Unable to evaluate origin of the left vertebral artery. Atherosclerotic calcifications at the bifurcation of the common carotid arteries without significant hemodynamic stenosis involving the internal carotid arteries. Patent internal/external carotid arteries. Carotid US Intimal thickening and multiple small plaques in the right common carotid artery as well as moderate size plaques in the left common carotid artery with calcifications. Moderate size plaques with calcifications at the common carotid bifurcation/ bulb and proximal internal carotid artery, bilaterally without evidence of hemodynamically significant stenosis Echo: EF 60-65% left and right ventricular size, thickness and function are normal. mild MR, Mod MR, trace AR, Severe with previous echo in 09/24 showing only severe 0 POC Glucometer 110 HOSPITAL COURSE: Date of Admission:04/25/19 83M w/ pmhx of CAD s/p CABG (and subsequent revision), CHF, aortic stenosis, pacemaker, HTN, HL, R inguinal sarcoma s/p resection 2 years ago, anemia presented to the ED after complaints of L sided facial numbness, slurred speech , drooling, and LUE numbness that started at approximately 8am on 04/25/19. Pt stated he was at home walking around his house when he suddenly started experiencing these symptoms. Slurred speech was witnessed by his . At that time, he sat down after which his symptoms resolved after 10 minutes. Patient came to the ED where he was no longer symptomatic.In the ED, a head CT was negative for bleed/ischemic changes but just moderate cortical atrophy. Cardio consulted. CTA was ordered which was found to have severe stenosis at the origin of Rt vertebral artery with no HD significant stenosis. Carotid duplex showed plaques in RCC and LCC with no HD significant stenosis and flow in both vertebral arteries. EKG also showed atrial-paced rhytmn with prolonged AV conduction and a QTC 436 and HR of 70. Echo also confirmed mild MR, Mod MR, trace AR, Severe with previous echo in 09/24 showing only severe . PPM was interrogated 2 weeks ago before the admission with no abnormal findings.KEYLA has been deferred at this time. Patient's aggrenox has be substituted to aspirin. Lipitor dose increased to 80 mg from 40 mg. Since TIA work up was found to be negative, seizures were suspected and an EGG has been ordered (result pending) and Keppra 250 mg added to the regimen. 2 days ago, patient developed ear pain and was found to be suffering from otitis media and amoxicillin treatment started and to be continued for 5 days on discharged.Patient was stable enough to be discharged home. Date of Discharge: 05/01/19 Minutes to complete discharge: 45 Discharge Summary Reason For Visit: TRANSIENT ISCHEMIC ATTACK Condition: Stable - Instructions Diet, Activity, Other Instructions: You were seen in the hospital for symptoms of facial droop, slurred speech, and left sided numbness. We think this may caused by seizures. You got an EEG of the brain which the results are pending. In addition, you also got an echocardiogram of your heart which did not show acute pathology. You symptoms improved and you are stable to be discharged home. Medications Some changes were made to your home medications; Your lipitor was increased to 80mg daily. this will be decreased in few weeks you started on a new seizure medication keppra 250 mg to be taken twice a day you are to continue the amoxicillin 500mg three times a day for 5 more days. take aspirin and plavix Follow Up Please follow up with your primary care physician, Dr. Haskins, within 1 week. Please follow up with your talent acquisition assistant , Dr. Monson within 1 week. Please follow up with your vascular surgeon, Jatin Harley within 1 week. to evaluate the stenosed vertebral artery Please follow up with your neurologist, Dr. Parkinson within 1 week. If you experience slurred speech, facial numbness/tingling, facial droop, persistent headaches/dizziness or other associated symptoms, please proceed to your nearest emergency room immediately. Referrals: Yumiko Haskins [Other] - 1 Week Kieran Birmingham MD [Staff Physician] - 1 Week Hanna Monson MD [Staff Physician] - Jatin Baxter DO [Staff Physician] - Disposition: HOME - Home Medications Comprehensive Discharge Medication List: Ambulatory Orders Clopidogrel Bisulfate [Clopidogrel] 75 mg PO DAILY 10/31/15 Folic Acid 1 mg PO DAILY 10/31/15 Metoprolol Succinate [Toprol XL -] 25 mg PO DAILY 10/31/15 Omeprazole 20 mg PO DAILY 10/31/15 Tamsulosin HCl 0.4 mg PO HS 10/31/15 Travoprost [Travatan Z] 1 drop OU DAILY 10/31/15 Metformin HCl [Glucophage] 500 mg PO BID 04/23/19 Pantoprazole Sodium [Protonix -] 20 mg PO DAILY 04/23/19 Valsartan [Diovan] 40 mg PO DAILY 04/23/19 Amoxicillin/Potassium Clav [Amox-Clav 875-125 mg Tablet] 1 each PO TID #15 tablet 05/01/19 Aspirin 81 mg PO DAILY #30 tab.chew 05/01/19 Atorvastatin Ca [Lipitor] 80 mg PO HS #30 tab 05/01/19 Brimonidine Tartrate/Timolol [[place] 0.2%-0.5% Eye Drops] 1 drop OP BID Levetiracetam [Keppra] 250 mg PO BID #30 tablet 05/01/19 Meloxicam 7.5 mg PO DAILY 05/01/19 Thyroid,Pork [[place] Thyroid] 90 mg PO DAILY #30 tablet 05/01/19 This patient is new to me today: Yes Date on this admission: 05/01/19 Emergency Visit: Yes ED Registration Date: 04/25/19 Care time: The patient presented to the Emergency Department on the above date and was hospitalized for further evaluation of their emergent condition. Critical Care patient: No - Discharge Referral Referred to [facility] No ATTENDING PHYSICIAN STATEMENT I saw and evaluated the patient. I reviewed the resident's note and discussed the case with the resident. I agree with the resident's findings and plan as documented. SUBJECTIVE: OBJECTIVE: ASSESSMENT AND PLAN:
== END 2019-05-01 15:55 | disposition home or self-care (01) | DRG 101 ==
LOC: JER 08:57 → JERBED 11:02 → J4S 19:59 → OBSVTOIN 04-25 12:58
PROVIDERS: ADMIT Internal Medicine; ATTEND Internal Medicine
PROC: 4A00X4Z Measurement of Central Nervous Electrical Activity, External Approach (ICD-10-PCS; principal; 2019-05-01)
DX: G40.209 Localization-related (focal) (partial) symptomatic epilepsy and epileptic syndromes with complex partial seizures, not intractable, without status epilepticus (principal); R47.01 Aphasia; I50.42 Chronic combined systolic (congestive) and diastolic (congestive) heart failure; I65.09 Occlusion and stenosis of unspecified vertebral artery; I10 Essential (primary) hypertension; E78.5 Hyperlipidemia, unspecified; D64.9 Anemia, unspecified; I25.2 Old myocardial infarction; E03.9 Hypothyroidism, unspecified; N40.0 Benign prostatic hyperplasia without lower urinary tract symptoms; R51 Headache; H40.9 Unspecified glaucoma; H54.40 Blindness, one eye, unspecified eye; I08.0 Rheumatic disorders of both mitral and aortic valves; E11.9 Type 2 diabetes mellitus without complications; I71.6 Thoracoabdominal aortic aneurysm, without rupture; I27.20 Pulmonary hypertension, unspecified; R29.810 Facial weakness; I11.0 Hypertensive heart disease with heart failure; H66.91 Otitis media, unspecified, right ear; I25.119 Atherosclerotic heart disease of native coronary artery with unspecified angina pectoris; Z86.718 Personal history of other venous thrombosis and embolism; Z95.1 Presence of aortocoronary bypass graft; Z86.711 Personal history of pulmonary embolism; Z95.0 Presence of cardiac pacemaker
CPT/HCPCS: 36415; 70450-TC; 70496-TC; 70498-TC; 80048; 80053; 80061; 81003; 82136; 82465; 82550; 82607; 82962; 83718; 83721; 83735; 83918; 84478; 84484; 85025; 85027; 85610; 85730; 86593; 86618; 86850; 86900; 86901; 93005; 93010; 93306-TC; 93880-TC; 95816; 97116-GP; 97161-GP; 99285-25; G0378; J1644; J7030

== ENCOUNTER 2019-11-06 15:08 | Emergency (ER) | payer OTHER ==
[2019-11-06 15:38] VITALS: BMI 23.6
--- NOTE | 2019-11-06 15:44 | PDOC ---
History of Present Illness - General History Source: Patient - History of Present Illness Initial Comments: 11/06/19 16:31 Mr. Washington is an 84 y/o M w/hx CAD, HTN, HLD, prior TIAs p/w one hour of <Guido Hudson - Last Filed: 11/06/19 18:00> <Moon Tamayo - Last Filed: 11/06/19 19:20> - General Chief Complaint: CVA/TIA Stated Complaint: RT SIDE NECK/ARM PAIN Time Seen by Provider: 11/06/19 15:27 Past History - Past Medical History Anemia: Yes Cancer: Yes (sarcoma) Cardiac Disorders: Yes (PACEMAKER/sudden cardiac arrest/7 stents) CVA: Yes (tia) COPD: No CHF: Yes Diabetes: Yes HTN: Yes - Surgical History Cardiac Surgery: Yes (quadruple bypass 1999) Cholecystectomy: Yes - Immunization History Immunization Up to Date: Yes - Psycho Social/Smoking Cessation Hx Smoking Status: No Smoking History: Never smoked Have you smoked in the past 12 months: No Number of Cigarettes Smoked Daily: 0 Information on smoking cessation initiated: No Hx Alcohol Use: No Drug/Substance Use Hx: No Substance Use Type: None Hx Substance Use Treatment: No <Guido Hudson - Last Filed: 11/06/19 18:00> <Moon Tamayo - Last Filed: 11/06/19 19:20> - Past Medical History Allergies/Adverse Reactions: Allergies Allergy/AdvReac Type Severity Reaction Status Date / Time Penicillins Allergy Verified 04/23/19 08:59 Home Medications: Ambulatory Orders Clopidogrel Bisulfate [Clopidogrel] 75 mg PO DAILY 10/31/15 Folic Acid 1 mg PO DAILY 10/31/15 Metoprolol Succinate [Toprol XL -] 25 mg PO DAILY 10/31/15 Omeprazole 20 mg PO DAILY 10/31/15 Tamsulosin HCl 0.4 mg PO HS 10/31/15 Travoprost [Travatan Z] 1 drop OU DAILY 10/31/15 Metformin HCl [Glucophage] 500 mg PO BID 04/23/19 Pantoprazole Sodium [Protonix -] 20 mg PO DAILY 04/23/19 Valsartan [Diovan] 40 mg PO DAILY 04/23/19 Amoxicillin/Potassium Clav [Amox-Clav 875-125 mg Tablet] 1 each PO TID #15 tablet 05/01/19 Aspirin 81 mg PO DAILY #30 tab.chew 05/01/19 Atorvastatin Ca [Lipitor] 80 mg PO HS #30 tab 05/01/19 Brimonidine Tartrate/Timolol [Combigan 0.2%-0.5% Eye Drops] 1 drop OP BID 05/01/19 Levetiracetam [Keppra] 250 mg PO BID #30 tablet 05/01/19 Meloxicam 7.5 mg PO DAILY 05/01/19 Thyroid,Pork [[place] Thyroid] 90 mg PO DAILY #30 tablet 05/01/19 *Physical Exam - Vital Signs Last Vital Signs Temp Pulse Resp BP Pulse Ox 98.2 F 84 173 H 173/96 H 100 11/06/19 15:33 11/06/19 15:33 11/06/19 15:33 11/06/19 15:33 11/06/19 15:33 <Guido Hudson - Last Filed: 11/06/19 18:00> - Vital Signs Last Vital Signs Temp Pulse Resp BP Pulse Ox 98.0 F 116 H 20 114/69 97 11/06/19 18:00 11/06/19 18:00 11/06/19 18:00 11/06/19 18:00 11/06/19 18:00 <Moon Tamayo - Last Filed: 11/06/19 19:20> tPA Exclusion Checklist 0-3hr - Time Elapsed Date last known well: 11/06/19 Time last known well: 15:00 Elaspsed time: Day(s) and 3 Hour(s) and 0 Minutes - Exclusion Criteria 0-3hr SBP greater than 185 or DBP greater than 110mmHg despite tx: No Active internal bleeding: No Symptoms suggest subarachnoid hemorrhage: No CT demonstrates multilobar infarct(>1/3 cerebral hemiphere): No Arterial puncture at noncompressible site in previous 7 days: No <Guido Hudson - Last Filed: 11/06/19 18:00> Critical Care Time/MDM Note - Medical Decision Making Note: 11/06/19 15:43 Last known well - 1500 <Guido Hudson - Last Filed: 11/06/19 18:00> Discharge <Guido Hudson - Last Filed: 11/06/19 18:00> - Discharge Information Problems reviewed: Yes - Admission No <Moon Tamayo - Last Filed: 11/06/19 19:20> - Discharge Information Clinical Impression/Diagnosis: Neck pain Condition: Improved Disposition: HOME - Follow up/Referral Referrals: Hansel Haskins MD [Primary Care Provider] - - Patient Discharge Instructions Additional Instructions: Follow up with your primary care doctor in the next 3 days. Follow up with your neurologist in the next one week. Your care is not complete until you are evaluated by neurology and your primary care doctor. Please return to the Emergency Department for any new/worsening/concerning symptoms.
[2019-11-06] MEDS ORDERED: SODIUM CHLORIDE 1,000 ML IV SCH (15:45)
[2019-11-06] MEDS ORDERED: ACETAMINOPHEN 1000 MG/100 ML VIAL (NON FORMULARY) IVPB ONE (16:43)
[2019-11-06 16:54] LABS: CHOLESTEROL 97 mg/dL (50-200); HDL CHOLESTEROL 54 mg/dL (40-60); LDL CHOLESTEROL (ONLY SJRH) 33 mg/dL (5-100); TRIGLYCERIDES 47 mg/dL (0-150)
--- NOTE | 2019-11-06 16:56 | PDOC ---
Attending Attestation - Resident Resident Name: Guido Hudson - HPI HPI: 11/06/19 16:57 Pt presents to the ED complaining of the acute onset of R sided neck pain radiating down the R arm. Pain is a sharp, shooting, intermittent pain similar to pain from "pinched nerve" on the other side. denies numbness or weakness. Denies chest pain or shortness of breath. 11/06/19 17:08 - Physicial Exam PE: 11/06/19 17:08 Agree with resident exam. Patient is alert and oriented x 3 and in no acute distress. Neuro: alert and oriented x 3. CN grossly intact. 5/5 strength B/L UE and LE. - Medical Decision Making 11/06/19 17:21 Pt presents to the ED complaining of atraumatic neck pain. initial concern for TIA based on exam in triage, which seemed to show RLE weakness. However, patient is adamant that he had no weakness, and that he was not trying to move his leg in triage. Patient has 5/5 lower extremity strength on exam. Ct head negative for ICH. Will give pain control, check labs and likely discharge home if labs are negative.
[2019-11-06 17:10] LABS: BASO % 0.2 % (0-2.0); EOS % 3.4 % (0-4.5); HEMOGLOBIN 12.3 GM/dL (11.7-16.9); LYMPH % 29.7 % (8-40); MCH 30.5 pg (25.7-33.7); MCHC 33.3 g/dl (32.0-35.9); MEAN CELL VOLUME 91.6 fl (80-96); MEAN PLT VOLUME 9.2 fl (7.5-11.1); MONO % 7.4 % (3.8-10.2); NEUT % 59.3 % (42.8-82.8); PLATELET COUNT 185 K/MM3 (134-434); RBC 4.04 M/mm3 (4.00-5.60); RDW 15.5 % (11.9-15.9); WHITE BLOOD COUNT 8.3 K/mm3 (4.0-10.0)
[2019-11-06] MEDS ORDERED: ACETAMINOPHEN INJECTION 100 ML IVPB ONE (17:28)
[2019-11-06 18:18] LABS: URINE APPEARANCE CLEAR; URINE BILIRUBIN NEGATIVE (NEGATIVE); URINE COLOR YELLOW; URINE GLUCOSE (UA) NEGATIVE (NEGATIVE); URINE KETONE NEGATIVE (NEGATIVE); URINE LEUK ESTERASE NEGATIVE (NEGATIVE); URINE NITRITE NEGATIVE (NEGATIVE); URINE PROTEIN NEGATIVE (NEGATIVE)
[2019-11-06 18:29] LABS: INR 1.18 (0.83-1.09); PROTHROMBIN TIME (PATIENT) 13.9 SEC (9.7-13.0)
[2019-11-06 18:32] LABS: ACTIVATED PTT 34.8 SECONDS (25.2-36.5)
[2019-11-06 18:47] VITALS: TEMP 98
[2019-11-06 18:53] LABS: ALBUMIN 3.6 g/dl (3.4-5.0); ALK PHOS 132 U/L (45-117); ANION GAP 6 MMOL/L (8-16); BILIRUBIN,TOTAL 0.7 mg/dL (0.2-1); BLOOD UREA NITROGEN 33.7 mg/dL (7-18); CALCIUM 8.6 mg/dL (8.5-10.1); CHLORIDE 109 mmol/L (98-107); CO2 24 mmol/L (21-32); CREATININE 1.3 mg/dL (0.55-1.3); GLUCOSE,RANDOM 111 mg/dL (74-106); POTASSIUM 4.5 mmol/L (3.5-5.1); SGOT/AST 24 U/L (15-37); SGPT/ALT 28 U/L (13-61); SODIUM 139 mmol/L (136-145); TOT PROT 6.8 g/dl (6.4-8.2)
[2019-11-06 19:58] VITALS: BP 120/67; PULSE 97
--- NOTE | 2019-11-07 10:34 | EKG ---
Test Reason : Blood Pressure : / mmHG Vent. Rate : 076 BPM Atrial Rate : 076 BPM P-R Int : 220 ms QRS Dur : 122 ms QT Int : 400 ms P-R-T Axes : 051 -03 009 degrees QTc Int : 450 ms Suspect unspecified pacemaker failure [employer]LECT[employer] PACEMAKER CANNOT RULE OUT INFERIOR INFARCT (CITED ON OR BEFORE 27-JUN-2012) ANTERIOR INFARCT (CITED ON OR BEFORE 31-OCT-2015) ABNORMAL ECG Confirmed by Sacha Gordon MD ([id number]) on 11/07/2019 10:34:30 AM Referred By: Confirmed By:Sacha Gordon MD
== END 2019-11-06 19:58 | disposition home or self-care (01) ==
LOC: JER 15:08
PROC: 3E033NZ Introduction of Analgesics, Hypnotics, Sedatives into Peripheral Vein, Percutaneous Approach (ICD-10-PCS; principal; 2019-11-06)
DX: M54.2 Cervicalgia (principal); M79.601 Pain in right arm; I25.10 Atherosclerotic heart disease of native coronary artery without angina pectoris; I11.0 Hypertensive heart disease with heart failure; Z95.1 Presence of aortocoronary bypass graft; Z95.5 Presence of coronary angioplasty implant and graft; E11.9 Type 2 diabetes mellitus without complications; Z79.84 Long term (current) use of oral hypoglycemic drugs; Z86.74 Personal history of sudden cardiac arrest; D64.9 Anemia, unspecified; Z95.0 Presence of cardiac pacemaker; Z86.73 Personal history of transient ischemic attack (TIA), and cerebral infarction without residual deficits; Z85.831 Personal history of malignant neoplasm of soft tissue; Z79.02 Long term (current) use of antithrombotics/antiplatelets; Z79.82 Long term (current) use of aspirin
CPT/HCPCS: 36415; 70450-TC; 80053; 80061; 81003; 82550; 83721; 84484; 85025; 85610; 85730; 86850; 86900; 86901; 93005; 93010; 96374; 99284-25; J0131; J7030

== ENCOUNTER 2020-12-22 07:35 | Inpatient (IN) | payer OTHER ==
[2020-12-22 07:53] VITALS: BMI 22.1
[2020-12-22] MEDS ORDERED: SODIUM CHLORIDE 1,000 ML IV SCH (09:15)
[2020-12-22 09:38] LABS: BASO % 0.2 % (0-2.0); HEMATOCRIT 36.3 % (35.4-49); HEMOGLOBIN 12.2 GM/dL (11.7-16.9); LYMPH % 27.7 % (8-40); MCH 30.9 pg (25.7-33.7); MCHC 33.7 g/dl (32.0-35.9); MEAN CELL VOLUME 91.7 fl (80-96); MEAN PLT VOLUME 8.6 fl (7.5-11.1); MONO % 7.4 % (3.8-10.2); NEUT % 60.7 % (42.8-82.8); PLATELET COUNT 190 K/MM3 (134-434); RBC 3.95 M/mm3 (4.00-5.60); RDW 14.2 % (11.9-15.9); WHITE BLOOD COUNT 7.2 K/mm3 (4.0-10.0)
[2020-12-22 09:46] LABS: INR 1.11 (0.83-1.09); PROTHROMBIN TIME (PATIENT) 13.6 SEC (9.7-13.0)
[2020-12-22 09:49] LABS: ACTIVATED PTT 24.7 SECONDS (25.2-36.5)
[2020-12-22 09:53] LABS: CHLORIDE 109 mmol/L (98-107); SODIUM 142 mmol/L (136-145)
[2020-12-22 09:57] LABS: ALBUMIN 3.7 g/dl (3.4-5.0); CALCIUM 9.5 mg/dL (8.5-10.1); GLUCOSE,RANDOM 104 mg/dL (74-106)
[2020-12-22 09:58] LABS: ANION GAP 5 MMOL/L (8-16); BLOOD UREA NITROGEN 21.1 mg/dL (7-18); CO2 28 mmol/L (21-32); MAGNESIUM 2.1 mg/dL (1.8-2.4)
[2020-12-22 10:00] LABS: CREATININE 1.1 mg/dL (0.55-1.3); SGPT/ALT 26 U/L (13-61)
[2020-12-22 10:01] LABS: ALK PHOS 103 U/L (45-117); BILIRUBIN,TOTAL 0.8 mg/dL (0.2-1); SGOT/AST 22 U/L (15-37)
[2020-12-22 10:02] LABS: TOT PROT 7.4 g/dl (6.4-8.2)
[2020-12-22 10:06] LABS: N-TERMINAL BNP 764.9 pg/ml (5-450)
[2020-12-22] MEDS ORDERED: ONDANSETRON 4 MG/2 ML VIAL IVPUSH PRN (12:30)
[2020-12-22] MEDS ORDERED: ACETAMINOPHEN 325 MG TABLET (FP) PO PRN (12:30)
[2020-12-23] MEDS: INSULIN SLIDING SCALE (NOVOLOG) 1 VIAL SQ SCH ×2 (00:02→09:06)
[2020-12-23 05:40] VITALS: TEMP 98.4
[2020-12-23 07:14] LABS: BLOOD UREA NITROGEN 18.8 mg/dL (7-18); CALCIUM 9.3 mg/dL (8.5-10.1)
[2020-12-23] MEDS ORDERED: ENOXAPARIN NA (PORCINE) 40 MG/0.4 ML DISP.SYRIN SQ SCH (10:00)
[2020-12-23 12:47] VITALS: BP 128/80; PULSE 74
== END 2020-12-23 13:10 | disposition home or self-care (01) | DRG 312 ==
LOC: JER 07:35 → JERBED 10:43
PROVIDERS: ADMIT Internal Medicine
DX: I95.1 Orthostatic hypotension (principal); I25.10 Atherosclerotic heart disease of native coronary artery without angina pectoris; I10 Essential (primary) hypertension; E78.5 Hyperlipidemia, unspecified; Z95.1 Presence of aortocoronary bypass graft; N40.0 Benign prostatic hyperplasia without lower urinary tract symptoms; E86.0 Dehydration; H40.9 Unspecified glaucoma; K21.9 Gastro-esophageal reflux disease without esophagitis; E11.9 Type 2 diabetes mellitus without complications
CPT/HCPCS: 36415; 71045-TC-FY; 80048; 80053; 82550; 82962; 83735; 83880; 84484; 85025; 85610; 85730; 93005; 93010; 99285-25; C9803; U0003; U0005

== ENCOUNTER 2021-12-27 13:04 | Emergency (ER) | payer OTHER ==
[2021-12-27 13:20] VITALS: BP 142/81; PULSE 74; TEMP 97.9; BMI 22.1
[2021-12-27 16:59] LABS: BASO % 0.1 % (0-2.0); EOS % 1.9 % (0-4.5); HEMATOCRIT 35.2 % (35.4-49); LYMPH % 23.6 % (8-40); MCH 31.7 pg (25.7-33.7); MEAN CELL VOLUME 93.4 fl (80-96); MEAN PLT VOLUME 8.3 fl (7.5-11.1); MONO % 9.6 % (3.8-10.2); NEUT % 64.8 % (42.8-82.8); PLATELET COUNT 187 10^3/uL (134-434); RBC 3.77 M/mm3 (4.00-5.60); RDW 14.1 % (11.9-15.9)
[2021-12-27 17:16] LABS: ALBUMIN 3.7 g/dl (3.4-5.0); BLOOD UREA NITROGEN 37.7 mg/dL (7-18)
[2021-12-27 17:19] LABS: CREATININE 1.1 mg/dL (0.55-1.3)
[2021-12-27 17:21] LABS: BILIRUBIN,TOTAL 0.6 mg/dL (0.2-1); TOT PROT 7.1 g/dl (6.4-8.2)
== END 2021-12-27 19:00 | disposition home or self-care (01) ==
LOC: JER 13:04
DX: R53.83 Other fatigue (principal)
CPT/HCPCS: 36415; 80053; 84484; 85025; 93005; 93010; 99284-25

== ENCOUNTER 2022-03-14 07:56 | Emergency (ER) | payer OTHER ==
[2022-03-14 08:06] VITALS: TEMP 99.3; BMI 22.1
[2022-03-14] MEDS ORDERED: IBUPROFEN 600 MG TABLET (FP) PO ONE ×2 (08:33→08:42)
[2022-03-14] MEDS ORDERED: BEBTELOVIMAB (EUA) 175 MG/2 ML VIAL IVPUSH ONE (10:15)
[2022-03-14 13:16] VITALS: BP 153/78; PULSE 78
== END 2022-03-14 13:16 | disposition home or self-care (01) ==
LOC: JER 07:56
PROC: 3E033NZ Introduction of Analgesics, Hypnotics, Sedatives into Peripheral Vein, Percutaneous Approach (ICD-10-PCS; principal; 2022-03-14)
DX: U07.1 COVID-19 (principal)
CPT/HCPCS: 0241U-QW; 71046-TC-FY; 99284-25; M0222; Q0222